=== PATIENT | male | born 1960 | race Caucasian/White ===

== ENCOUNTER 2021-07-30 08:59 | Outpatient (REF) | payer OTHER, SELFPAY ==
--- NOTE | ~2021-07-30 | XR_ITS ---
EXAMINATION: THORACIC AND LUMBAR SPINE CLINICAL INFORMATION: Severe back pain. COMPARISON: None TECHNIQUE: Three-view lumbar spine and three-view thoracic spine. FINDINGS: Thoracic spine: No acute thoracic spine fractures identified. No significant paraspinal line bulge is seen. There is degenerative spurring seen at multiple levels most prominent within the lower thoracic and upper lumbar spine. This is seen anteriorly and laterally with appearance of bridging with ankylosis at multiple levels. Disc spaces are generally maintained. Pedicles appear intact. Three views of the lumbar spine demonstrates lumbarization of S1. No acute fractures identified. There is mild scoliosis convex left. There is some rotation present giving the appearance of mild grade 1 spondylolistheses at the L1-L2 and L2-L3 disc space levels. There is narrowing of the disc spaces with what appears to be some ankylosis. There is facet arthropathy present L3-S2. No fusion of sacroiliac joints is appreciated. XR/XR lumbar spine 2-3V IMPRESSION: Degenerative change without evidence of acute fracture throughout the thoracic and lumbar spine as described.
--- NOTE | ~2021-07-30 | XR_ITS ---
EXAMINATION: THORACIC AND LUMBAR SPINE CLINICAL INFORMATION: Severe back pain. COMPARISON: None TECHNIQUE: Three-view lumbar spine and three-view thoracic spine. FINDINGS: Thoracic spine: No acute thoracic spine fractures identified. No significant paraspinal line bulge is seen. There is degenerative spurring seen at multiple levels most prominent within the lower thoracic and upper lumbar spine. This is seen anteriorly and laterally with appearance of bridging with ankylosis at multiple levels. Disc spaces are generally maintained. Pedicles appear intact. Three views of the lumbar spine demonstrates lumbarization of S1. No acute fractures identified. There is mild scoliosis convex left. There is some rotation present giving the appearance of mild grade 1 spondylolistheses at the L1-L2 and L2-L3 disc space levels. There is narrowing of the disc spaces with what appears to be some ankylosis. There is facet arthropathy present L3-S2. No fusion of sacroiliac joints is appreciated. XR/XR thoracic spine 3V IMPRESSION: Degenerative change without evidence of acute fracture throughout the thoracic and lumbar spine as described.
[2021-07-30 09:22] LABS: MANUAL DIFF FLAG NO
[2021-07-30 10:12] LABS: Basophils Percent Auto 0.4 % (0-2); Eosinophils Absolute Auto 0.1 X10*3/uL (0.0-0.4); Eosinophils Percent Auto 2.3 % (0-4); Hematocrit 44.3 % (42.0-52.0); Hemoglobin 15.2 g/dl (14.0-18.0); Imm Gran Abs Auto 0.02 X10*3/uL (0.00-0.03); Imm Gran Pct Auto 0.4 % (0.0-0.4); Lymphocytes Absolute Auto 1.7 X10*3/uL (1.2-4.9); Mean Corpuscular HGB Conc 34.3 g/dl (31.0-36.0); Mean Corpuscular Hemoglobin 30.5 pg (27.0-33.0); Mean Corpuscular Volume 88.8 fL (80.0-98.0); Mean Platelet Volume 9.5 fL (9.4-12.4); Monocytes Absolute Auto 0.3 X10*3/uL (0.1-1.2); Monocytes Percent Auto 7.1 % (2-11); Neutrophils Absolute Auto 2.6 x10*3/uL (2.0-8.3); Neutrophils Percent Auto 53.8 % (45-73); Platelet Count 233 X10*3/uL (160-400); Red Blood Count 4.99 X10*6/uL (4.60-5.80); Red Cell Distribution Width 12.4 % (11.0-16.0); White Blood Count 4.8 X10*3/uL (4.8-10.8)
[2021-07-30 10:48] LABS: Alanine Aminotransferase 15 U/L (0-40); Albumin Level 4.4 g/dL (3.5-5.0); Alkaline Phosphatase 69 U/L (39-117); Anion Gap 11 (12-20); Aspartate Amino Transferase 13 U/L (5-37); Bilirubin Total 1.2 mg/dL (0.0-1.0); Blood Urea Nitrogen 13 mg/dL (9-16); Calcium 9.2 mg/dL (8.4-10.2); Carbon Dioxide 25 mmol/L (22-29); Chloride 107 mmol/L (96-108); Cholesterol 252 mg/dL; Estimated Glomerular Filt Rate > 60; Glucose Fasting 84 mg/dL (60-99); HDL Cholesterol 32 mg/dL; LDL Cholesterol Calculated 198 mg/dl; Potassium 4.5 mmol/L (3.3-5.1); Sodium 138 mmol/L (135-145); Total Protein 7.3 g/dL (6.5-8.0); Triglycerides 112 mg/dL
[2021-07-30 11:00] LABS: Free T4 (Free Thyroxine) 0.82 ng/dL (0.71-1.85); Thyroid Stimulating Hormone 2.16 uIU/mL (0.32-4.0)
[2021-07-30 11:47] LABS: Cortisol Random 8.5 ug/dL
[2021-08-05 18:42] LABS: Testosterone, Free 56.3 pg/mL (35.0-155.0); Testosterone, Total 262 ng/dL (250-1100)
== END 2021-07-30 09:00 | disposition home or self-care (01) ==
LOC: HO.LAB 08:59
PROVIDERS: PCP Internal Medicine Medical Oncology; Visit Provider Internal Medicine Medical Oncology
DX: M54.9 Dorsalgia, unspecified (principal); Z12.5 Encounter for screening for malignant neoplasm of prostate
CPT/HCPCS: 36415; 72072; 72100; 80053; 80061; 82533; 84153; 84402; 84403; 84439; 84443; 85025

== ENCOUNTER 2023-12-26 09:56 | Outpatient (REF) | payer OTHER, SELFPAY ==
--- NOTE | ~2023-12-26 | XR_ITS ---
EXAMINATION: XR CERVICAL SPINE CLINICAL INFORMATION: Neck pain COMPARISON: None available. TECHNIQUE: 3 views of the cervical spine were obtained. FINDINGS: Multilevel spurring and disc space narrowings, most pronounced C5-6. Multilevel facet hypertrophic changes seen. Mild vertebral body height loss of C5 is likely degenerative. Extreme odontoid tip is obscured but appears intact. No focal paravertebral soft tissue swelling seen. Posterior elements are aligned. Lung apices are clear. Nuchal calcifications. Soft tissues are otherwise unremarkable. XR/XR cervical spine 3V IMPRESSION: Cervical spondylosis, disc space narrowing most pronounced at C5-6. Electronically signed by: Ivy Coulter MD 12/26/2023 11:58 AM EDT
== END 2023-12-26 09:57 | disposition home or self-care (01) ==
LOC: HO.XRAY 09:56
PROVIDERS: PCP Internal Medicine Medical Oncology; Visit Provider Internal Medicine Medical Oncology
DX: M54.2 Cervicalgia (principal)
CPT/HCPCS: 72040

== ENCOUNTER 2024-09-24 15:20 | Outpatient (AMB) | payer OTHER, SELFPAY ==
--- NOTE | 2024-09-24 15:24 | A.OFFVIS_ITS ---
Vital Signs 09/24/24 15:33 Height 6 ft 1 in Weight 233 lb 11.04 oz BMI 30.8 BP 150/74 H Blood Pressure Location Lt brachial Position Sitting Pulse 75 Intake Visit Reasons: [facility] screening , repeat Intake Note: Michael presents in the office as a colonoscopy screening CC: States he had his last colo 7 years ago. 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 He is referred by Dr. Bienvenido Lazo PMX Obesity High cholesterol Umbilical hernia History of gastritis Cervical spondylosis Rotator cuff dysfunction Depression Erectile dysfunction GERD * SURGICAL HISTORY Left myringotomy Skin cancers/moles removed Colonoscopy-2018, Joey= 2 TA is EGD-2017, Joey= partial esophageal stricture with dilation no Barretts * ALLERGIES: NKDA * SubblimeTECH LABS: None since 2021 TODAY'S VISIT He has trouble with HB, it ebbs and flows in severity sometimes he is fine and other times everything he eats or drinks will give him severe burning in the throat. He has been treating it with things like Mylanta. Given the fact that he had an esophageal stricture in the past I think that he really should be on a daily acid reducing medication. He has used omeprazole in the past with good success so we will prescribe this and I encouraged him to use it every day. There is no known family history of gallbladder disease. There is no medications that appear to be contributing to the problem although he is on testosterone injections. He does not have any constipation or diarrhea that co uld be driving the symptoms. In the past he has been negative for H pylori. I think we will get a barium swallow just to see if there is a sliding hiatal hernia contributing to his symptoms. He is also due for repeat colonoscopy because of his history of tubular adenomas. He denies any cardiac or respiratory problems. There are no prior problems with anesthesia or sedation. There are no infectious disease problems. He has been struggling to lose weight recently, has been cutting back a great deal on foods. 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 ROV 8 weeks. [facility] Surgical History H/O esophagogastroduodenoscopy H/O colonoscopy H/O myringotomy Review of Systems Const Denies fatigue, Denies fever(s), Denies night sweats, Denies poor appetite and Denies weight loss Eyes Details: Glasses Reports requires corrective lenses ENT Reports Normal hearing present, Denies dental pain, Denies dysphagia, Denies hearing loss, Denies mouth pain, Denies odynophagia, Denies throat swelling, Denies tongue swelling and Reports other (Dentition adequate) Card Reports no additional complaints Resp Reports no additional complaints GI Details: Denies abdominal pain, Denies melena, Denies bloating, Denies hematochezia, Denies constipation, Denies GI cramping, Denies dysphagia, Denies excessive flatus, Denies early satiety, Reports heartburn, Denies diarrhea, Denies nausea, Denies odynophagia, Denies vomiting and Denies hematemesis Skin/Breast Denies pruritus, Denies lesions, Denies rash and Denies jaundice Neuro Reports Normal hearing present and Denies Abnormal speech present Psych Reports anxiety Endo Denies fatigue Aller/Immun Denies throat swelling and Denies tongue swelling Physical Exam Vital Signs: Last Vital Signs Pulse 75 09/24/24 15:33 BP 150/74 H 09/24/24 15:33 BMI result Body Mass Index 30.8 Const General: cooperative, no acute distress, well developed and well groomed Nutritional Appearance: well nourished and obese centrally obese Orientation/consciousness: oriented to person, oriented to place and oriented to time Limitations: No language barrier HEENT Head: Yes normocephalic and Yes atraumatic Eyes General: appearance normal, both eyes and all related structures Pupils: Equal, round and reactive pupils present Neck Neck: Yes normal visual inspection and Yes no lymphadenopathy Thyroid: Thyroid normal Resp Effort & Inspection: normal respiratory effort and able to speak in complete sentences Auscultation: clear to auscultation bilaterally Cardio Rate: regular rate Rhythm: regular rhythm Heart sounds: Normal, physiologic split S2 sound present Peripheral pulses: radial pulses present and posterior tibial pulses present GI Inspection: No distended, No Abdominal panniculus present and Yes obesity Palpation (GI): Soft to palpation, nontender, no guarding, not rigid and No hepatosplenomegaly present Percussion: Yes normal to percussion Auscultation: normal bowel sounds Rectal Exam - Male: Yes deferred Skin General skin exam: no rashes or lesions noted, turgor normal, skin not dry, no jaundice, No spider nevi and no striae Rashes: no rashes Nails: normal Neuro General: oriented to person, oriented to place and oriented to time Cranial nerves: Yes Equal, round and reactive pupils present and Yes Normal hearing present Speech: No Abnormal speech present Extrem General: Yes normal to inspection, No clubbing, No cyanosis and No edema Psych Appearance: grossly normal and well kempt Mental Status: mental status grossly normal Speech and movement: Normal speech and movement present Affect: normal affect Attitude: cooperative Thought process: Normal thought process present and not confabulating Thought content: Normal thought content present Insight: Good insight present (Psych) Judgement: Good judgement present (Psych) Assessment & Plan Assessment & Plan (1) Pre-op examination: Code(s): Z01.818 - Encounter for other preprocedural examination Category: Medical (2) Tubular adenoma of colon: Comment: 2018-Joey= 2 TA is Code(s): D12.6 - Benign neoplasm of colon, unspecified Category: Medical (3) GERD (gastroesophageal reflux disease): Code(s): K21.9 - Gastro-esophageal reflux disease without esophagitis Category: Medical Plan He has trouble with HB, it ebbs and flows in severity sometimes he is fine and other times everything he eats or drinks will give him severe burning in the throat. He has been treating it with things like Mylanta. Given the fact that he had an esophageal stricture in the past I think that he really should be on a daily acid reducing medication. He has used omeprazole in the past with good success so we will prescribe this and I encouraged him to use it every day. There is no known family history of gallbladder disease. There is no medications that appear to be contributing to the problem although he is on testosterone injections. He does not have any constipation or diarrhea that could be driving the symptoms. In the past he has been negative for H pylori. I think we will get a barium swallow just to see if there is a sliding hiatal hernia contributing to his symptoms. He is also due for repeat colonoscopy because of his history of tubular adenomas. He denies any cardiac or respiratory problems. There are no prior problems with anesthesia or sedation. There are no infectious disease problems. He has been struggling to lose weight recently, has been cutting back a great deal on foods. 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 ROV 8 weeks. Orders: Orders Colonoscopy - GI Use Only Today D12.6 - Benign neoplasm of colon, unspecified Comprehensive Met. Panel Today D12.6 - Benign neoplasm of colon, unspecified Complete Blood Count Auto Diff Today D12.6 - Benign neoplasm of colon, unspecified [place] barium swallow Today K21.9 - Gastro-esophageal reflux disease without esophagitis Medications: New peg 3350-electrolytes 236-22.74-6.74 -5.86 gram (Golytely) until fecal effluent is clear; do not exceed a total volume of 2,000 mL 240 mL PO Q10M 4,000 mL 0RF 1 day Z12.11 - Encounter for screening for malignant neoplasm of colon bisacodyl (Dulcolax (bisacodyl)) 10 mg (2 x 5 mg) PO BEDTIME 4 tabs 0RF 2 days omeprazole 20 mg PO DAILY 30 caps 6RF 30 days K21.9 - Gastro-esophageal reflux disease without esophagitis Coding Level of Care Code New Pt Level 3 (27084) Diagnoses Pre-op examination Z01.818 Tubular adenoma of colon D12.6 GERD (gastroesophageal reflux disease) K21.9
[2024-09-24 15:33] VITALS: BP 150/74; PULSE 75; BMI 30.8
--- OUTSIDE RECORDS SUMMARY | 2024-09-24 16:15 | XMS_ITS | Clinical Summary ---
Author Organization [address] Address [address] [place] [address] Phone Care Team Providers Care Gear Inspector Name Role Phone Christiano Lazo MD Primary Care Provider [phone] Social History Tobacco Use Types Packs/Day Years Used Date Smoking Tobacco: Never Assessed Sex and Gender Information Value Date Recorded Sex Assigned at Not on file Legal Sex Male 9:21 AM EST Gender Identity Not on file Sexual Orientation Not on file Plan of Treatment Health Maintenance Due Date Last Done Comments DTaP,Tdap,and Td Vaccines (1 - Tdap) 1980 Pneumococcal Vaccine: 50+ Ye ars (1 of 1 - PCV) 09/20/2011 Zoster Vaccines (1 of 2) 09/20/2011 COVID-19 Vaccine ( - 2023-2 5 season) 2023 Depression Screening 03/06/2024 Cholesterol Screening (Lipid Panel) 05/08/2024 Colorectal Cancer Screening: Colonoscopy 05/08/2024 HIV Screening 05/08/2024 Hepatitis C Screening 05/08/2024 Social Influencers of Health Screening 05/08/2024 Influenza Vaccine (#1) 2024 RSV Immunization Adult Patie nts (1 - 1-dose 75+ series) 2036 HIB Vaccines Aged Out No longer eligi ble based on patient's age to complete this topic HPV Vaccines Aged Out No longer eligi ble based on patient's age to complete this topic Hepatitis A Vaccines Aged Out No long er eligible based on patient's age to complete this topic Hepatitis B Vaccines Aged Out No long er eligible based on patient's age to complete this topic IPV Vaccines Aged Out No longer eligi ble based on patient's age to complete this topic MMR Vaccines Aged Out No longer eligi ble based on patient's age to complete this topic Meningococcal ACWY Vaccine Aged Out N o longer eligible based on patient's age to complete this topic Meningococcal B Vaccine Aged Out No l onger eligible based on patient's age to complete this topic RSV Immunization Patients Un gladis 20 months Aged Out No longer eligible b ased on patient's age to complete this topic Varicella Vaccines Aged Out No longer eligible based on patient's age to complete this topic Insurance [facility] [place] [id number] [facility] Care Teams Gear Inspector Relationship Specialty Start Date End Date Christiano Lazo MD [address] [facility] [address] [place] [address] PCP - General Oncology 05/07/24
--- OUTSIDE RECORDS SUMMARY | 2024-09-24 16:16 | XMS_ITS | Patient Health Record ---
Author Organization Christiano Lazo III, MD Address [address] [place] [address] Care Team Providers Care Deaf Interpreter Name Role Phone Christiano Lazo Primary Care Provider [phone] Allergies Allergen (clinical drug ingredient) Drug/Non Drug [...] date:06/10/2024 10:37:30 AM Interpretation: Performing Lab: Notes/Report: XR cervical spine 3V Reviewed date:02/28/2024 09:47:07 AM Interpretation: Performing Lab: Notes/Report: [address] [address] XRay Report Signed Patient: Michael Menezes MR#: [id number] : 1960 Acct:[id number] Age/Sex: 63 / M ADM Date: 12/26/23 Loc: HO.XRAY Attending Dr: Christiano Lazo MD Ordering Physician: Christiano Lazo MD Date of Service: 12/26/23 Procedure(s): XR cervical spine 3V Accession Number(s): [id number] cc: Christiano Lazo MD EXAMINATION: XR CERVICAL SPINE CLINICAL INFORMATION: Neck pain COMPARISON: None available. TECHNIQUE: 3 views of the cervical spine were obtained. FINDINGS: Multilevel spurring and disc space narrowings, most pronounced C5-6. Multilevel facet hypertrophic changes seen. Mild vertebral body height loss of C5 is likely degenerative. Extreme odontoid tip is obscured but appears intact. No focal paravertebral soft tissue swelling seen. Posterior elements are aligned. Lung apices are clear. Nuchal calcifications. Soft tissues are otherwise unremarkable. XR/XR cervical spine 3V IMPRESSION: Cervical spondylosis, disc space narrowing most pronounced at C5-6. Electronically signed by: Ivy Coulter MD 12/26/2023 11:58 AM EDT Dictated By: Ivy Coulter MD Signed By: <Electronically signed by Ivy Coulter MD in OV> 12/26/23 1158 DD/ 1001 TD/TT: 12/26/23 1015 Autocad: [address] [address] XRay Report Signed Patient: Scottie Menezes MR#: [id number] : 1960 Acct:[id number] Age/Sex: 63 / M ADM Date: 12/26/23 Loc: HO.XRAY Attending Dr: Christiano Lazo MD Ordering Physician: Christiano Lazo MD Date of Service: 12/26/23 Procedure(s): XR cer vical spine 3V Accession Number(s): [id number] cc: Christiano Lazo MD EXAMINATION: XR CERVICAL SPINE CLINICAL INFORMATION: Neck pain COMPARISON: None available. TECHNIQUE: 3 views of the cervi eb spine were obtained. FINDINGS: Multilevel spurring and disc space narrowings, most pronounced C5-6. Multilevel facet hyp ertrophic changes seen. Mild vertebral body height loss of C5 is likely degenerative. Extreme odontoid tip is obscured but appears intact. No f ocal paravertebral soft tissue swelling seen. Posterior elements a re aligned. Lung apices are clear. Nuchal calcifications. Soft tissues are otherwise unremarkable. X R/XR cervical spine 3V IMPRESSION: Cervical spondylosis , disc space narrowing most pronounced at C5-6. Electronically jordy d by: Ivy Coulter MD 12/26/2023 11:58 AM EDT RP Dictated By: Ivy Torres MD Signed By: <Viviane velasco signed by Ivy Coulter MD in OV> 12/26/23 1158 DD/ 1001 TD/TT: 12/26/23 1015 Autocad: Reason For Referral Reason Consult and Treat Diagnosis 1 Back pain (M54.9) Diagnosis 2 Left shoulder pain ( M25.512) Referral Organization Christiano Lazo III, MD Referring Provider First Name Christiano Referring Provider Last Name Lazo Referring Provider Speciality Internal edicine Referred Provider [facility] Referred Provider Specialty Physical Med icine General Notes D Verena 01/09/2024 10:11:08 AM > Referral faxed with progress note Referral Priority Routine Referral Appointment Date 01/10/2024 Reason Evaluate and Treat Screen for Colon Cancer Diagnosis 1 Screen for colon can cer (Z12.11) Referral Organization Christiano Lazo III, MD Referring Provider First Name Christiano Referring Provider Last Name Lazo Referring Provider Speciality Internal edicine Referred Provider CHERRY NYE Referred Provider Specialty Gastroentero logy General Notes D, Verena 02/19/2024 03:43:04 PM > Faxed referral and progress note Referral Priority Routine Referral Appointment Date 09/24/2024 Reason Evaluate and Treat Diagnosis 1 Low testosterone (R7 9.89) Diagnosis 2 ED (erectile dysfunc tion) (N52.9) Diagnosis 3 Hematuria (R31.9) Referral Organization Christiano Lazo III, MD Referring Provider First Name Christiano Referring Provider Last Name Violet Referring Provider Speciality Internal M edicine Referred Provider Shay Joseph Referred Provider Specialty Urology General Notes D Verena 02/19/2024 03:42:39 PM > faxed referral and progress note Referral Priority Routine Referral Appointment Date 03/15/2024 Reason Evaluate and Treat Diagnosis 1 Back pain (M54.9) Referral Organization Christiano Lazo III, MD Referring Provider First Name Christiano Referring Provider Last Name Violet Referring Provider Speciality Internal M edicine Referred Provider GUALBERTO CHEN Referred Provider Specialty Chiropractor , licensed (effective September 1972) General Notes D, Verena 02/19/2024 03:42:13 PM > Faxed referral and progress note Referral Priority Routine Referral Appointment Date 05/27/2024 Medications Medication SIG (Take, Route, Frequency, Duration) Notes Start Date End Date Status Calcium 500 MG 1 tablet with meals Orally Twice a day Active Magnesium 250 MG 1 tablet with a meal Orally Once a day Active Zinc 30 MG 1 capsule Orally Once a day Active Testosterone Cypionate 200 MG/ML INJECT 0.75ML ONCE EVERY WEEK, DISCARD REMAINDER Intramuscular Active Vitamin K2 40 MCG as directed Orally Active Vitamin D3 25 MCG (1000 UT) 1 capsule Orally Once a day Active BD Syringe/Needle 23G X 1 3 ML USE ONE SYRINGE TO INJECT TESTOSTRONE INTRAMUSCULARLY EVERY WEEK Active BD Integra Syringe 23G X 1 3 ML USE WITH TESTOSTERONE ONCE WEEKLY Active Immunizations Vaccine Route Administration Date Status Comme nts Influenza IM Intramuscular 03/23/2012 Administered Influenza IM Intramuscular 11/28/2013 Administered Influenza IM Intramuscular 12/07/2015 Administered Influenza no Preserv 3 and > IM Intramuscular 12/23/2016 Administered Influenza no Preserv 3 and > IM Intramuscular 01/10/2018 Administered Influenza, quad IM Intramuscular 01/22/2021 Administered Influenza, quad IM Intramuscular 02/01/2022 Administered Influenza Vaccine Afluria IM Intramuscular 11/17/2023 Admi nistered Social History Tobacco Use: Social History Observation Description Date Details (start date - stop date) Never Smoker NA - NA Sex Assigned At : Social History Observation Description Sex Assigned At Male Tobacco Use/Smoking Question Answer Notes Patient is a nonsmoker Additional Findings: Tobacco Non-User Aggressive non-smoker Alcohol Screen Question Answer Notes Did you have a drink containing alcohol in the p ast year? No Points 0 Interpretation Negative Problems Problem Type SNOMED Code ICD Code Onset Dates Problem Status W/U Status Risk Notes Problem 25016178 Hyperlipidemia (E78.5) Active confirmed His fasting lipid profile has been ordered prior to his next visit. We reviewed his diet and nutrition today. We made a plan to lose weight. Problem Major depression, single episode (84458364) Major depressive disorder, single episode, unspecified (F32.9) Active confirmed He is worried about hhis financial situation but his depression is mild. He said he does not require medication at this time. He will be followed regularly. Problem 699981214 GERD without esophagitis (K21.9) Active confirmed His reflux symptoms are well controlled with bmzh-vcx-anzwan r medication and no change was necessary. Problem 965296840 Obesity (BMI 30-39.9) (E66.9) Active confirmed He has gain ed 5 pounds. His body mass index is 31.6. We discussed his diet and nutrition. We made a plan for him to lose weight at a rate of one half of a pound per week. Problem Neuropathy (548039455) Neuropathy (G62.9) Active confirmed Problem Cervical radiculopathy (M54.12) Active confirmed I think it is more likely the pathology is in the cervical spine and in the shoulder joints. An MRI of the neck will be ordered. If necessary he will see orrthopedics. X-rays will bbe obtained as needed. We will continue with heat and rest and ibuprofen. Problem 660202548 Umbilical hernia (K42.9) Active confirmed A small umbilical hernia is present but is causing no symptoms or will be observed without treatment. Problem 258894580 Condyloma acuminata (A63.0) Active confirmed No new lesions were seen today. Problem 109566379 ED (erectile dysfunction) (N52.9) Active confirmed This problem was addressed with medication which she says is no longer working well. He will be referred to urology if it persists. Problem 89403940 Otitis media (H66.90) Active confirmed He was referred back to his otolaryngologis t, Dr. Sosa, for consideration of drainage of the year and appropriate therapy. Problem 17531406 Hypogonadism in male (E29.1) Active confirmed He says he is receiving injections of testosterone given by the urologist. This was continued. Problem 772256764 Microscopic hematuria (R31.29) Active confirmed He has had no episodes of gross hematuria. He occasionally rises at night to urinate but has not had any frequency or dysuria or overflow incontinence. In March 2016 he saw a urologist, Dr. Jaylen Moore, who reviewed his radiographic evaluation and decided he could be followed without cystoscopy. Vital Signs Heart Rate 73 /min 06/14/2024 Temperature 98.6 degrees Fahrenheit 06/14/2024 Blood pressure diastolic 76 mm Hg 06/14/2024 Height 72 in 06/14/2024 Blood pressure systolic 140 mm Hg 06/14/2024 Weight 233 lbs 06/14/2024 BMI 31.6 kg/m2 06/14/2024 Encounters Encounter Location Date Provider Diagnosis Christiano Lazo III, MD [address] [place] [address] [place] [address] 11/17/2023 Christiano Lazo Hyperlipidemia E78.5 ; Encounter for immunization Z23 ; ED (erectile dysfunction) N52.9 ; Obesity (BMI 30-39.9) E66.9 and Vitamin deficiency, unspecified E56.9 Christiano Lazo III, MD [address] [place] [address] [place] [address] 12/26/2023 Christiano Lazo Back pain M54.9 ; Ne ck pain, acute M54.2 ; Umbilical hernia K42.9 ; Hyperlipidemia E78.5 ; GERD without esophagitis K21.9 and Obesity (BMI 30-39.9) E66.9 Christiano Lazo III, MD [address] [place] [address] [place] [address] 01/05/2024 Christiano Lazo Cervical radiculopat hy M54.12 ; Obesity (BMI 30-39.9) E66.9 ; Umbilical hernia K42.9 ; Hyperlipidemia E78.5 and GERD without esophagitis K21.9 Christiano Lazo III, MD [address] [place] [address] [place] [address] 02/16/2024 Christiano Lazo ED (erectile dysfunction) N52.9 ; Obesity (BMI 30-39.9) E66.9 ; Hyperlipidemia E78.5 ; Pyuria R82.81 ; Condyloma acuminata A63.0 ; Reflux esophagitis K21.0 ; Cervical radiculopathy M54.12 and Major depressive disorder, single episode, unspecified F32.9 Christiano Lazo III, MD [address] [place] [address] [address] [place] [address] 06/14/2024 Christiano Lazo Hypogonadism in male E29.1 ; Major depressive disorder, single episode, unspecified F32.9 ; Cervical radiculopathy M54.12 ; Obesity (BMI 30-39.9) E66.9 ; GERD without esophagitis K21.9 ; Hyperlipidemia E78.5 and Umbilical hernia K42.9 Christiano Lazo III, MD [address] [place] [address] [place] [address] 02/19/2024 Christiano Lazo Hematuria, unspecifi ed type R31.9 Christiano Lazo III, MD [address] [place] [address] [place] [address] 02/21/2024 Christiano Lazo Assessments Encounter Date Diagnosis (ICD Code) Assessment Notes Treat ment Notes Treatment Clinical Notes 11/17/2023 Hyperlipidemia (ICD-10 - E78.5) He is compliant with medication. His body mass index is 30. Comprehensive blood work with a fasting lipid profile has been ordered. 11/17/2023 Encounter for immunization (ICD-10 - Z23) He was given influenza vaccine. 12/26/2023 Back pain (ICD-10 - M54.9) His chronic low back pain is mild today and has improved. It does not limit his ability to perform the activities of daily life at present. 12/26/2023 Neck pain, acute (ICD-10 - M54.2) His main complaint today was pain in the back of his neck on both sides when he moves his neck. The causes a tingling and numb discomfort in the upper portions of his right arm. He has pain when he wears rate with either shoulder. Range of motion was normal today. This appears to be in arthritic nerve impingement in the cervical spine. He will use heat rest and ibuprofen. X-rays have been ordered. 01/05/2024 Obesity (BMI 30-39.9 ) (ICD-10 - E66.9) He has gained 2 pounds. His body mass index is 30. We discussed his diet and nutrition. We made a plan for him to lose weight at a rate of one half of a pound per week. 01/05/2024 Cervical radiculopathy (ICD-10 - M54.12) I think it is more likely the pathology is in the cervical spine and in the shoulder joints. An MRI of the neck will be ordered. If necessary he will see orrthopedics. X-rays will bbe obtained as needed. We will continue with heat and rest and ibuprofen. 02/16/2024 Obesity (BMI 30-39.9 ) (ICD-10 - E66.9) He has gained 2 pounds. His body mass index is 30. We discussed his diet and nutrition. We made a plan for him to lose weight at a rate of one half of a pound per week. 02/16/2024 ED (erectile dysfunction) (ICD-10 - N52.9) This problem was addressed with medication which she says is no longer working well. He will be referred to urology if it persists. 06/14/2024 Major depressive disorder, single episode, unspecified (ICD-10 - F32.9) He is worried about hhis financial situation but his depression is mild. He said he does not require medication at this time. He will be followed regularly. 06/14/2024 Hypogonadism in male (ICD-10 - E29.1) He says he is receiving injections of testosterone given by the urologist. This was continued. 02/19/2024 Hematuria, unspecified type (ICD-10 - R31.9) 11/17/2023 ED (erectile dysfunction) (ICD-10 - N52.9) This problem has been treated with medication successfully. 12/26/2023 Umbilical hernia (ICD-10 - K42.9) A small umbilical hernia is present but is causing no symptoms or will be observed without treatment. 01/05/2024 Umbilical hernia (ICD-10 - K42.9) A small umbilical hernia is present but is causing no symptoms or will be observed without treatment. 02/16/2024 Hyperlipidemia (ICD-10 - E78.5) His fasting lipid profile has been ordered prior to his next visit. We reviewed his diet and nutrition today. We made a plan to lose weight. 06/14/2024 Cervical radiculopathy (ICD-10 - M54.12) I think it is more likely the pathology is in the cervical spine and in the shoulder joints. An MRI of the neck will be ordered. If necessary he will see orrthopedics. X-rays will bbe obtained as needed. We will continue with heat and rest and ibuprofen. 11/17/2023 Obesity (BMI 30-39.9 ) (ICD-10 - E66.9) He has gained 2 pounds. His body mass index is 30. We discussed his diet and nutrition. We made a plan for him to lose weight at a rate of one half of a pound per week. 12/26/2023 Hyperlipidemia (ICD-10 - E78.5) He is compliant with medication. His body mass index is 30. Comprehensive blood work with a fasting lipid profile has been ordered. 01/05/2024 Hyperlipidemia (ICD-10 - E78.5) He is compliant with medication. His body mass index is 30. Comprehensive blood work with a fasting lipid profile has been ordered. 02/16/2024 Pyuria (ICD-10 - R82.81) His urine analysis today was remarkable for pyuria and some microscopic hematuria. A culture will be done. 06/14/2024 Obesity (BMI 30-39.9 ) (ICD-10 - E66.9) He has gained 5 pounds. His body mass index is 31.6. We discussed his diet and nutrition. We made a plan for him to lose weight at a rate of one half of a pound per week. 11/17/2023 Vitamin deficiency, unspecified (ICD-10 - E56.9) He was continued on all of his medications. 12/26/2023 GERD without esophagitis (ICD-10 - K21.9) His reflux symptoms are well controlled with meku-otw-qdfwitl medication and no change was necessary. 01/05/2024 GERD without esophagitis (ICD-10 - K21.9) His reflux symptoms are well controlled with vykg-jvb-mifxjmy medication and no change was necessary. 02/16/2024 Condyloma acuminata (ICD-10 - A63.0) No new lesions were seen today. 06/14/2024 GERD without esophagitis (ICD-10 - K21.9) His reflux symptoms are well controlled with mndp-bzx-zvjlzbc medication and no change was necessary. 12/26/2023 Obesity (BMI 30-39.9 ) (ICD-10 - E66.9) He has gained 2 pounds. His body mass index is 30. We discussed his diet and nutrition. We made a plan for him to lose weight at a rate of one half of a pound per week. 02/16/2024 Reflux esophagitis (ICD-10 - K21.0) He will be placed on omeprazole 20 mg a day and a liquid antacid like Maalox or Mylanta orally every 2 hours for 21 days. 06/14/2024 Hyperlipidemia (ICD-10 - E78.5) His fasting lipid profile has been ordered prior to his next visit. We reviewed his diet and nutrition today. We made a plan to lose weight. 02/16/2024 Cervical radiculopathy (ICD-10 - M54.12) I think it is more likely the pathology is in the cervical spine and in the shoulder joints. An MRI of the neck will be ordered. If necessary he will see orrthopedics. X-rays will bbe obtained as needed. We will continue with heat and rest and ibuprofen. 06/14/2024 Umbilical hernia (ICD-10 - K42.9) A small umbilical hernia is present but is causing no symptoms or will be observed without treatment. 02/16/2024 Major depressive disorder, single episode, unspecified (ICD-10 - F32.9) He is worried about hhis financial situation but his depression is mild. He said he does not require medication at this time. He will be followed regularly. Plan Of Treatment Pending Test Test Name Order Date PROFILE, FASTING (COMPREHENSIVE METABOLI C) 09/11/2017 PROFILE, FASTING (COMPREHENSIVE METABOLI C) 10/02/2019 PROFILE, FASTING (COMPREHENSIVE METABOLI C) 02/07/2023 PROFILE, FASTING (COMPREHENSIVE METABOLI C) 08/30/2019 PROFILE, FASTING (COMPREHENSIVE METABOLI C) 06/06/2016 PROFILE, FASTING (COMPREHENSIVE METABOLI C) 06/14/2024 PROFILE, FASTING (COMPREHENSIVE METABOLI C) 10/30/2018 PROFILE, FASTING (COMPREHENSIVE METABOLI C) 07/23/2021 PROFILE, FASTING (COMPREHENSIVE METABOLI C) 05/05/2017 PROFILE, FASTING (COMPREHENSIVE METABOLI C) 02/01/2022 PROFILE, FASTING (COMPREHENSIVE METABOLI C) 07/27/2020 PROFILE, FASTING (COMPREHENSIVE METABOLI C) 11/17/2021 PROFILE, FASTING (COMPREHENSIVE METABOLI C) 05/22/2018 PROFILE, FASTING (COMPREHENSIVE METABOLI C) 11/17/2023 PROFILE, FASTING (COMPREHENSIVE METABOLI C) 01/04/2017 PROFILE, FASTING (COMPREHENSIVE METABOLI C) 04/19/2019 LIPID PANEL 01/04/2017 LIPID PANEL 04/19/2019 LIPID PANEL 09/11/2017 LIPID PANEL 10/02/2019 LIPID PANEL 08/30/2019 LIPID PANEL 06/06/2016 LIPID PANEL 10/30/2018 LIPID PANEL 02/21/2018 LIPID PANEL 05/05/2017 LIPID PANEL 02/01/2022 LIPID PANEL 07/27/2020 LIPID PANEL 11/17/2021 LIPID PANEL 05/22/2018 FREE T4 (FT4) 07/23/2021 FREE T4 (FT4) 08/30/2019 TSH (THYROID STIMULATING HORMONE) 2021 TSH (THYROID STIMULATING HORMONE) 2019 PSA, TOTAL 07/23/2021 PSA, TOTAL 11/17/2023 PSA, TOTAL 07/27/2020 PSA, TOTAL 02/01/2022 PSA, TOTAL SCREEN 11/17/2021 CBC w DIFF 08/30/2019 CBC w DIFF 02/01/2022 CBC w DIFF 05/22/2018 CBC w DIFF 07/23/2021 CBC w DIFF 07/27/2020 CBC w DIFF 01/04/2017 CBC w DIFF 11/17/2021 CBC w DIFF 09/11/2017 CBC w DIFF 06/14/2024 CBC w DIFF 10/02/2019 CBC w DIFF 06/06/2016 CBC w DIFF 10/30/2018 CBC w DIFF 05/05/2017 SED RATE (ESR) 08/30/2019 URINALYSIS (UA) 02/16/2024 FOLLICLE STIMULATING HORMONE (FSH) 09/12 LUTEINIZING HORMONE (LH) 09/13/2019 TESTOSTERONE, TOTAL 08/30/2019 TESTOSTERONE, TOTAL 09/13/2019 MRI CERVICAL SPINE NO CONTRAST CBC WITH AUTO DIFF 11/17/2023 CBC WITH AUTO DIFF 02/07/2023 Lipid Panel 11/17/2023 Lipid Panel 08/13/2021 Lipid Panel 02/07/2023 Lipid Panel 06/14/2024 Vitamin D 25-OH Total 11/17/2023 Vitamin D 25-OH Total 06/14/2024 Testosterone, Total 06/14/2024 Cortisol 07/23/2021 Urine Culture 02/16/2024 Next Appt Details Provider Name:Christiano Lazo, 10/25/2024 01:45:00 PM, [address] [place] [address] [place], [place], [address], Provider Name:Christiano Lazo, 02/21/2025 01:45:00 PM, [address] [place] [address] [place], [place], [address], Insurance Providers Payer Name Payer Address Payer Phone Subscriber Number Group Number Insured Name Patient Relationship to Insured Coverage Start Date Coverage End Date [employer] [address] [place] [phone] [id number] Michael Menezes Self - patient is the insured Medical (General) History Medical History History ICD Code folliculitis of the scalp/Dr. 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
== END 2024-09-24 16:03 | disposition home or self-care (01) ==
LOC: HO.HGI 15:21
PROVIDERS: PCP Internal Medicine Medical Oncology; Visit Provider Nurse Practitioner
DX: Z01.818 Encounter for other preprocedural examination (principal); Z12.11 Encounter for screening for malignant neoplasm of colon; Z86.0101 Personal history of adenomatous and serrated colon polyps; K21.9 Gastro-esophageal reflux disease without esophagitis
CPT/HCPCS: 99203

== ENCOUNTER 2024-09-24 15:20 | Outpatient (REF) | payer OTHER, SELFPAY ==
[2024-09-24 16:27] LABS: MANUAL DIFF FLAG NO
[2024-09-24 17:10] LABS: Hematocrit 46.2 % (42.0-52.0); Hemoglobin 16.4 g/dl (14.0-18.0); Imm Gran Abs Auto 0.06 X10*3/uL (0.00-0.03); Imm Gran Pct Auto 0.7 % (0.0-0.4); Lymphocytes Absolute Auto 2.1 X10*3/uL (1.2-4.9); Mean Corpuscular HGB Conc 35.5 g/dl (31.0-36.0); Mean Corpuscular Hemoglobin 31.1 pg (27.0-33.0); Mean Corpuscular Volume 87.5 fL (80.0-98.0); NRBC Abs Auto 0.000 X10*3/uL (0.0-0.012); NRBC Pct Auto 0.0 /100WBC (0.0-0.2); Platelet Count 230 X10*3/uL (160-400); Red Blood Count 5.28 X10*6/uL (4.60-5.80); White Blood Count 8.7 X10*3/uL (4.8-10.8)
[2024-09-24 17:36] LABS: Alanine Aminotransferase 27 U/L (0-40); Albumin Level 4.6 g/dL (3.5-5.0); Alkaline Phosphatase 60 U/L (39-117); Anion Gap 14 (12-20); Aspartate Amino Transferase 29 U/L (5-37); Blood Urea Nitrogen 15 mg/dL (9-16); Calcium 9.0 mg/dL (8.4-10.2); Carbon Dioxide 23 mmol/L (22-29); Chloride 106 mmol/L (96-108); Estimated Glomerular Filt Rate > 60; Potassium 4.1 mmol/L (3.3-5.1); Sodium 139 mmol/L (135-145); Total Protein 7.9 g/dL (6.5-8.0)
== END 2024-09-24 15:21 | disposition home or self-care (01) ==
LOC: HO.LAB 15:20
PROVIDERS: PCP Internal Medicine Medical Oncology; Visit Provider Nurse Practitioner
DX: Z01.818 Encounter for other preprocedural examination (principal); K21.9 Gastro-esophageal reflux disease without esophagitis; D12.6 Benign neoplasm of colon, unspecified; R12 Heartburn; Z12.11 Encounter for screening for malignant neoplasm of colon
CPT/HCPCS: 36415; 80053; 85025

== ENCOUNTER 2024-11-26 16:17 | Outpatient (AMB) | payer OTHER, SELFPAY ==
--- OUTSIDE RECORDS SUMMARY | 2024-06-14 09:30 | XMS_ITS ---
Author Organization Christiano Lazo III, MD Address [address] [place] [address] Care Team Providers Care Sports Doctor Name Role Phone Dr. Christiano Lazo III Primary Care Provider [phone] Allergies Allergen (clinical drug ingredient) Drug/Non Drug [...] Problem Status W/U Status Risk Notes Problem [id number] Hypogonadism in male (E29.1) Active confirmed He [...] Date Provider Diagnosis Christiano Lazo III, MD [address] [place] [address] [place] [address] 06/14/2024 Christiano Lazo Hypogonadism in male E29.1 [...] His reflux symptoms are well controlled with hcop-srw-aikttbp medication and no change was necessary. 06/14/2024 [...] Months, Reason: OV Provider Name:Christiano Lazo , 12/20/2024 02:00:00 PM, [address] [place] [address] [address], [place], [address], Provider Name:Christiano Lazo , 02/21/2025 01:45:00 PM, [address] [place] [address] [address], [place], [address], Progress Notes * Michael SHELLDOB:1960 (63 yo M)Acc No.[id number]:06/14/2024 Progress Notes Patient: Michael VELARDE Provider: Chris Lazo MD :1960 A ge:63 Y S ex:Male Date:06/14/2024 Address:[address] [place] [address] [id number] Subjective: * Chief Complaints: * O n [...] A ggressive non-smoker 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 He was born in [facility] near [place]. {'Work Hours':'47.5 hours per week', 'Exercise':'Patient has [...] :His reflux symptoms are well controlled with zteq-xrf-zhxdcho medication and no change was necessary. 6 [...] 0 06/14/2024 Generated for Jessica gee/Sanjuanita/Zairaitting on: 11/26/2024 06:40 PM EDT History and Physical Notes * [...]
--- OUTSIDE RECORDS SUMMARY | 2024-10-11 10:56 | XMS_ITS ---
Demographics Address [address] [place] [address] Mobile Email Address Preferred Language en Marital Status Rastafari Affiliation Unknown Race White Ethnic Group Not or Lati no Author Organization Christiano Lazo III, MD Address [address] [place] [address] [address] [facility] [place] [address] Care Team Providers Care Pneudraulic Systems Mechanic Name Role Phone Dr. Christiano Lazo III Primary Care Provider REASON FOR VISIT speak to patient regarding blood in urine Social History Sex Assigned At : Social History Observation Description Sex Assigned At Male Encounters Encounter Location Date Provider Diagnosis Christiano Lazo III, MD [address] [place] [address] [address] [facility] [place] [address] 10/11/2024 Christiano Lazo Plan Of Treatment Next Appt Details Provider Name:Christiano Lazo , 12/20/2024 02:00:00 PM, [address] [place] [address] [place], [address], Provider Name:Christiano Lazo , 02/21/2025 01:45:00 PM, [address] [place] [address] [place] [place] [facility] [place], [address], Progress Notes * Michael SHELLDOB:1960 (64 yo M)Acc No.[id number]:10/11/2024 Patient: Augustine RUBINMichael :1960 A ge:64 Y S ex:Male Address:[address] [place] [address] [address] , [facility] [place] [place] [address] * true * Date: Generated for Printi ng/Faxing/eTransmitting on: 0 11/26/2024 06:40 PM EDT
--- OUTSIDE RECORDS SUMMARY | 2024-10-14 06:11 | XMS_ITS ---
Demographics Address [address] [place] [address] Mobile Email Address Preferred Language en Marital Status Advent Affiliation Unknown Race White Ethnic Group Not or Lati no Author Organization Christiano Lazo III, MD Address [address] [facility] [place] [address] Care Team Providers Care Nurse Ortho Name Role Phone Dr. Christiano Lazo III Primary Care Provider REASON FOR VISIT told patient to call Social History Sex Assigned At : Social History Observation Description Sex Assigned At Male Encounters Encounter Location Date Provider Diagnosis Christiano Lazo III, MD [address] [place] [address] [address] [facility] [place] [address] 10/14/2024 Christiano Lazo Plan Of Treatment Next Appt Details Provider Name:Christiano Lazo , 12/20/2024 02:00:00 PM, [address] [place] [address] [place], [address], Provider Name:Christiano Lazo , 02/21/2025 01:45:00 PM, [address] [place] [address] [address] [place] [facility], [address], Progress Notes * Michael SHELLDOB:1960 (64 yo M)Acc No.[id number]:10/14/2024 Patient: Augustine RUBINMichael :1960 A ge:64 Y S ex:Male Address:[address] [place] [address] [address] , [place] [address] * true * Date: Generated for Printi ng/Faxing/eTransmitting on: 0 11/26/2024 06:39 PM EDT
--- OUTSIDE RECORDS SUMMARY | 2024-10-25 09:45 | XMS_ITS ---
Author Organization Christiano Lazo III, MD Address [address] [place] [address] Care Team Providers Care Main Line Assembler Name Role Phone Dr. Christiano Lazo III [...] Referring Provider Speciality Internal edicine Referred Provider [facility] Referred Provider Specialty Vascular Kaylie ivet [...] 02:22:39 PM > Patient was contacted by [facility] Pulmonary was left a message to call and schedule an appointment. Patient was contacted by Dr. Lazo office and was provided with the [facility] Pulmonary phone number to contact them to [...] Omeprazole 20 MG TAKE 1 CAPSULE BY [facility] DAILY Oral Active Vitamin K2 [...] Date Provider Diagnosis Christiano Lazo III, MD [address] [place] [address] [address] [place], [place] [address] 10/25/2024 Christiano Lazo Obesity (BMI 30-39.9 ) [...] 10/25/2024 10/25/2024, Evaluate and Treat, [facility] 10/25/2024 10/25/2024, Consult and Treat Snoring Patient needs sleep study Daytime Somnolence, Pulmonology [facility] Next Appt Details Follow Up: 2 Months, Reason: OV Provider Name:Christiano Lazo , 12/20/2024 02:00:00 PM, [address] [place] [address] [address], [place], [address], Provider Name:Christiano Mendes Violet , 02/21/2025 01:45:00 PM, [address] [place] [address] [address], [place], [address], Progress Notes * Michael SHELLDOB:1960 (64 yo M)Acc No.[id number]:10/25/2024 Progress Notes Patient: Michael VELARDE Provider: Chris Lazo MD :1960 A ge:64 Y S ex:Male Date:10/25/2024 Address:[address] [place] [address] [place], [id number] Subjective: * Chief Complaints: * H yperlipidemiaGERDObesityDepressionCervical [...] He was referred to endovascular surgery at [facility] for treatment. He has a colonoscopy scheduled in February at [facility]. He feels healthy and well otherwise. His appetite is good and he is trying to lose weight.He is under the care of [facility] urology for hypogonadism. 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 He was born in [place]. {'Work Hours':'47.5 hours per week', 'Exercise':'Patient has [...] Date & Time - 09/24/2024 04:26 PM)?ValueReference Range?Bzjybc192922-710 - mmol/L?Bilirubin Total0.50.0-1.0 - mg/dL?Aspartate Amino Cytxsrwxyyr594-77 - U/L?Alanine Mhkhbivjiyxkelgg160-92 - U/L?Total Protein7.96.5-8.0 - g/dL?Albumin Level4.63.5-5.0 - g/dL?Alkaline Ibmrgiuyqhi5167-327 - U/L?Potassium4.13.3-5.1 - mmol/L?Zqmuznbo636 96-108 - mmol/L?Carbon Crgqbwi9881-20 - mmol/L?Anion Erq3385-19 - ?Blood Urea Mqayslnm564-70 - mg/dL?Creatinine0.880.5-1.4 - mg/dL ?Estimated Glomerular Filt Rate> 60-?Glucose Lsbcpx2509-542 - mg/dL?Calcium9.08.4-10.2 - mg/dL * Examination: G [...] TESTOSTRONE INTRAMUSCULARLY EVERY WEEK. Referral To:[facility]ascular Surgery Reason:Evaluate and Treat Referral To:Pulmonology [facility] Pulmonary Diseases Reason:Consult and Treat Snoring [...] true * Provider: Chris Lazo MD Date: 10/25/2024 Generated for Jessica gee/Sanjuanita/Zairaitting on: 11/26/2024 06:40 [...] Referred Provider Not es 10/25/2024 Christiano Lazo [facility] Evaluate and Treat 10/25/2024 Christiano Lazo [facility], Pulmonology Consult and Treat Snoring Patient needs sleep study Daytime Somnolence
--- OUTSIDE RECORDS SUMMARY | 2024-11-20 07:00 | XMS_ITS ---
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 Christiano Lazo III [...] Omeprazole 20 MG TAKE 1 CAPSULE BY [facility] DAILY Oral Active BD Syringe/Needle 23G X [...] Provider Diagnosis Christiano Lazo III, MD [address] [place] [address] [address] [place], [place] [phone] 11/20/2024 Christiano Lazo Obesity (BMI 30-39.9 ) [...] organisms (ICD-10 - J20.8) He will use jzgg-tcr-vewjqzw medication for his symptoms. He was given 5 days of azithromycin and a follow-up appointment. 11/20/2024 Hyperlipidemia (ICD-10 - E78.5) His fasting lipid profile has been ordered prior to his next visit. We reviewed his diet and nutrition today. We made a plan to lose weight. 11/20/2024 GERD without esophagitis (ICD-10 - K21.9) His reflux symptoms are well controlled with eicv-myw-lcrxpox medication and no change was necessary. Plan [...] Omeprazole 20 MG TAKE 1 CAPSULE BY [facility] DAILY Oral BD Syringe/Needle 23G X 1 [...] Next Appt Details Follow Up: As Scheduled, [place] son: OV Provider Name:Christiano Lazo , 12/20/2024 02:00:00 PM, [address] [place] [address] [address], [place], [phone], Provider Name:Christiano Lazo , 02/21/2025 01:45:00 PM, [address] [place] [address] [address], [place], [phone], Progress Notes * SULEMAN MichaelDOB:1960 (64 yo M)Acc No.[id number]:11/20/2024 Patient: Michael VELARDE Provider: Chris Lazo MD :1960 A ge:64 Y S ex:Male Date:11/20/2024 Address:[address] [place] [address] [id number] Subjective: * Chief Complaints: * A cute [...] of provider rendering services: { ...} [address] 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 He was born in [place]. {'Work Hours':'47.5 hours per week', 'Exercise':'Patient has [...] Date & Time - 09/24/2024 04:26 PM)?ValueReference Range?Qxbzlj616180-941 - mmol/L?Bilirubin Total0.50.0-1.0 - mg/dL?Aspartate Amino Icruszwdqpr092-54 - U/L?Alanine Ayqdpohuzburwwvw730-79 - U/L?Total Protein7.96.5-8.0 - g/dL?Albumin Level4.63.5-5.0 - g/dL?Alkaline Nxsoctcbdjm2273-403 - U/L?Potassium4.13.3-5.1 - mmol/L?Nqpajzko609 96-108 - mmol/L?Carbon Algswnp7376-33 - mmol/L?Anion Url7788-11 - ?Blood Urea Ohprlore582-07 - mg/dL?Creatinine0.880.5-1.4 - mg/dL ?Estimated Glomerular Filt Rate> 60-?Glucose Orgzmr3555-573 - mg/dL?Calcium9.08.4-10.2 - mg/dL Assessment: * Assessment: 1. A cute bronchitis due to other specified organisms - J20.8 (Primary) N otes :He will use ndhk-ngh-msyevde medication for his symptoms. He was given [...] :His reflux symptoms are well controlled with dwix-gjq-liajcru medication and no change was necessary. Plan: [...] off status: Completed true * Provider: Chris aLzo MD Date: 0 11/20/2024 Generated for Jessica gee/Sanjuanita/Zakia on: 11/26/2024 06:40 PM EDT History and Physical Notes * HPI (History of Present Illness) Category Sub-Category Detail Notes Telehealth Location of [facility] rendering services:: {...} [address] [place] [address] Drive [address] [place] [address] Location of patient:: address listed in demographics [...]
--- NOTE | 2024-11-26 16:19 | A.OFFVIS_ITS ---
Vital Signs 11/26/24 16:27 Height 6 ft 1 in Weight 222 lb BMI 29.3 BP 124/59 L Blood Pressure Location Lt brachial Position Sitting Pulse 72 Intake Visit Reasons: Gastroesophageal reflux disease (GERD) Intake Note: Patient follow up for GERD Patient denies any GI issues. Junior Underwriter Required: No Accompanied by: Self / Same As Patient Allergies No Known Allergies Allergy (Verified 09/24/24 15:34) HPI HPI Gastroesophageal reflux disease (GERD): Details: Assessment & Plan (1) Pre-op examination: Code(s): Z01.818 - Encounter for other preprocedural examination Category: Medical (2) Tubular adenoma of colon: Comment: 2018-Joey= 2 TA is Code(s): D12.6 - Benign neoplasm of colon, unspecified Category: Medical (3) GERD (gastroesophageal reflux disease): Code(s): K21.9 - Gastro-esophageal reflux disease without esophagitis Category: Medical Plan He has trouble with HB, it ebbs and flows in severity sometimes he is fine and other times everything he eats or drinks will give him severe burning in the throat. He has been treating it with things like Mylanta. Given the fact that he had an esophageal stricture in the past I think that he really should be on a daily acid reducing medication. He has used omeprazole in the past with good success so we will prescribe this and I encouraged him to use it every day. There is no known family history of gallbladder disease. There is no medications that appear to be contributing to the problem although he is on testosterone injections. He does not have any constipation or diarrhea that could be driving the symptoms. In the past he has been negative for H pylori. I think we will get a barium swallow just to see if there is a sliding hiatal hernia contributing to his symptoms. He is also due for repeat colonoscopy because of his history of tubular adenomas. He denies any cardiac or respiratory problems. There are no prior problems with anesthesia or sedation. There are no infectious disease problems. He has been struggling to lose weight recently, has been cutting back a great deal on foods. 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 ROV 8 weeks. Orders: Orders Colonoscopy - GI Use Only Today D12.6 - Benign neoplasm of colon, unspecified Comprehensive Met. Panel Today D12.6 - Benign neoplasm of colon, unspecified Complete Blood Count Auto Diff Today D12.6 - Benign neoplasm of colon, unspecified [place] barium swallow Today K21.9 - Gastro-esophageal reflux disease without esophagitis Medications: New peg 3350-electrolytes 236-22.74-6.74 -5.86 gram (Golytely) until fecal effluent is clear; do not exceed a total volume of 2,000 mL 240 mL PO Q10M 4,000 mL 0RF 1 day Z12.11 - Encounter for screening for malignant neoplasm of colon bisacodyl (Dulcolax (bisacodyl)) 10 mg (2 x 5 mg) PO BEDTIME 4 tabs 0RF 2 days omeprazole 20 mg PO DAILY 30 caps 6RF 30 days K21.9 - Gastro-esophageal reflux disease without esophagitis LABS Laboratory Tests 09/24/24 16:26 WBC 8.7 Hgb 16.4 Hct 46.2 Plt Count 230 Estimated GFR > 60 Total Bilirubin 0.5 AST 29 ALT 27 Alkaline Phosphatase 60 BARIUM SWALLOW 01/16/2025 COLONOSCOPY BIOPSY TODAYS VISIT [facility] Surgical History H/O esophagogastroduodenoscopy H/O colonoscopy H/O myringotomy Social History Household Members: Family Alcohol intake: current Alcohol intake frequency: holidays/special occasions only Patient Tobacco Use Status: Never used Tobacco Review of Systems Const Denies fatigue, Denies fever(s), Denies night sweats, Denies poor appetite and Reports weight loss (16 lb on a low carb diet) Eyes Details: glasses Reports requires corrective lenses ENT Reports Normal hearing present, Denies dental pain, Denies dysphagia, Denies hearing loss, Denies mouth pain, Denies odynophagia, Denies throat swelling, Denies tongue swelling and Reports other (Dentition adequate) Card Reports no additional complaints Resp Reports no additional complaints GI Details: Denies abdominal pain, Denies melena, Denies bloating, Denies hematochezia, Denies constipation, Denies GI cramping, Denies dysphagia, Denies excessive flatus, Denies early satiety, Reports heartburn, Denies diarrhea, Denies nausea, Denies odynophagia, Denies vomiting and Denies hematemesis Skin/Breast Denies pruritus, Denies lesions, Denies rash and Denies jaundice Neuro Reports Normal hearing present and Denies Abnormal speech present Endo Denies fatigue Aller/Immun Denies throat swelling and Denies tongue swelling Physical Exam Const General: cooperative, no acute distress, well developed and well groomed Nutritional Appearance: well nourished and obese Orientation/consciousness: oriented to person, oriented to place and oriented to time Limitations: No language barrier HEENT Head: Yes normocephalic and Yes atraumatic Eyes General: appearance normal, both eyes and all related structures Pupils: Equal, round and reactive pupils present Neck Neck: Yes normal visual inspection and Yes no lymphadenopathy Thyroid: Thyroid normal Resp Effort & Inspection: normal respiratory effort and able to speak in complete sentences Auscultation: clear to auscultation bilaterally Cardio Rate: regular rate Rhythm: regular rhythm Heart sounds: Normal, physiologic split S2 sound present Peripheral pulses: radial pulses present and posterior tibial pulses present GI Inspection: No distended, No Abdominal panniculus present and Yes obesity Palpation (GI): Soft to palpation, nontender, no guarding, not rigid and No hepatosplenomegaly present Percussion: Yes normal to percussion Auscultation: normal bowel sounds Rectal Exam - Male: Yes deferred Skin General skin exam: no rashes or lesions noted, turgor normal, skin not dry, no jaundice, No spider nevi and no striae Rashes: no rashes Nails: normal Neuro General: oriented to person, oriented to place and oriented to time Cranial nerves: Yes Equal, round and reactive pupils present and Yes Normal hearing present Speech: No Abnormal speech present Extrem General: Yes normal to inspection, No clubbing, No cyanosis and No edema Psych Appearance: grossly normal and well kempt Mental Status: mental status grossly normal Speech and movement: Normal speech and movement present Affect: normal affect Attitude: cooperative Thought process: Normal thought process present and not confabulating Thought content: Normal thought content present Insight: Good insight present (Psych) Judgement: Good judgement present (Psych) Assessment & Plan Assessment & Plan (1) GERD (gastroesophageal reflux disease): Code(s): K21.9 - Gastro-esophageal reflux disease without esophagitis Category: Medical (2) S/P dilatation of esophageal stricture: Comment: 2017 Joey Code(s): Z98.890 - Other specified postprocedural states; Z87.19 - Personal history of other diseases of the digestive system Category: Surgical (3) Tubular adenoma of colon: Comment: 2018-Joey= 2 TA is Code(s): D12.6 - Benign neoplasm of colon, unspecified Category: Medical Plan He is on omeprazole 20 mg daily - The patient is a 64-year-old male presenting with GERD. - Symptoms have improved with lifestyle changes, notably a low-carb diet and resulting weight loss. - Previously managed symptoms with a three-week course of omeprazole; patient discontinued use following symptom resolution. Of course this is somewhat concerning to me given he has a history of esophageal stricture, but the weight loss he is achieving may actually be cunha in controlling his heartburn going forward - Diagnostic barium swallow scheduled to evaluate for a hiatal hernia as a potential underlying cause of GERD symptoms. Return office visit after his 01/16 barium swallow. We also have a colonoscopy ordered for history of tubular adenomas that has not yet been scheduled. Orders: Referrals GI Procedure Notification D12.6 - Benign neoplasm of colon, unspecified Coding Level of Care Code Est Pt Level 3 (90051) Diagnoses GERD (gastroesophageal reflux disease) K21.9 S/P dilatation of esophageal stricture Z98.890; Z87.19 Tubular adenoma of colon D12.6
[2024-11-26 16:27] VITALS: BP 124/59; PULSE 72; BMI 29.3
--- OUTSIDE RECORDS SUMMARY | 2024-11-26 18:40 | XMS_ITS | Patient Health Record ---
Author Organization Christiano Lazo III, MD Address [address] [place] [address] Care Team Providers Care Blood Bank Calendar Control Clerk Name Role Phone Dr. Christiano Lazo III [...] date:02/28/2024 09:47:07 AM Interpretation: Performing Lab: Notes/Report: [address] [address] XRay Report Signed Patient: Michael Menezes MR#: [id number] : 1960 Acct:[id number] Age/Sex: 63 / M ADM Date: 12/26/23 Loc: HO.XRAY Attending Dr: Christiano Lazo MD Ordering Physician: Christiano Lazo MD Date of Service: 12/26/23 Procedure(s): XR cervical spine 3V Accession Number(s): [id number] cc: Christiano Lazo MD EXAMINATION: XR CERVICAL [...] 12/26/23 1158 DD/ 1001 TD/TT: 12/26/23 1015 Tennis Ball Cover Cementer: [address] [address] XRay Report Signed Patient: Scottie Menezes MR#: [id number] : 1960 Acct:[id number] Age/Sex: 63 / M ADM Date: 12/26/23 Loc: HO.XRAY Attending Dr: Christiano Lazo MD Ordering Physician: Christiano Lazo MD Date of Service: 12/26/23 Procedure(s): XR cervical spine 3V Accession Number(s): [id number] cc: Christiano Lazo MD EXAMINATION: XR CERVICAL [...] unremarkable. XR/XR cervical spine 3V IMPRESSION: Cervical spondylosis , disc space narrowing most pronounced at C5-6. Electronically jordy d by: Ivy Coulter MD 12/26/2023 11:58 AM EDT RP Dictated By: Ivy Coulter MD Signed By: <Electronically signed by Ivy Coulter MD in OV> 12/26/23 1158 DD/ 1001 TD/TT: 12/26/23 1015 Tennis Ball Cover Cementer: Complete Blood Count Auto Di ff Reviewed date:10/05/2024 07:16:05 PM Interpretation: Performing Lab:[facility], [address] [place] [id number] Notes/Report: White Blood Count 8.7 4.8-10.8 X10*3/uL Red Blood Count 5.28 4.60-5.80 X10*6/uL Hemoglobin 16.4 14.0-18.0 g/dl Hematocrit 46.2 42.0-52.0 % Mean Corpuscular Volume 87.5 80.0-98.0 fL Mean Corpuscular Hemoglobin 31.1 27.0-33.0 pg Mean Corpuscular HGB Conc 35.5 31.0-36.0 g/dl Red Cell Distribution Width 13.1 11.0-16.0 % Platelet Count 230 160-400 X10*3/uL Mean Platelet Volume 9.4 9.4-12.4 fL Neutrophils Percent Auto 65.8 45-73 % Imm Gran Pct Auto 0.7 0.0-0.4 % Lymphocytes Percent Auto 24.4 20-40 % Monocytes Percent Auto 7.2 2-11 % Eosinophils Percent Auto 1.6 0-4 % Basophils Percent Auto 0.3 0-2 % NRBC Pct Auto 0.0 0.0-0.2 /100WBC Neutrophils Absolute Auto 5.8 2.0-8.3 x10*3/u L Imm Gran Abs Auto 0.06 0.00-0.03 X10*3/uL Lymphocytes Absolute Auto 2.1 1.2-4.9 X10*3/u L Monocytes Absolute Auto 0.6 0.1-1.2 X10*3/uL Eosinophils Absolute Auto 0.1 0.0-0.4 X10*3/u L Basophils Absolute Auto 0.0 0.0-0.2 X10*3/uL NRBC Abs Auto 0.000 0.0-0.012 X10*3/uL Comprehensive Met. Panel Reviewed date:10/05/2024 07:16:05 PM Interpretation: Performing Lab:[facility], [address] [place] [id number] Notes/Report: Sodium 139 135-145 mmol/L Potassium 4.1 3.3-5.1 mmol/L Slight Hemolysis.Interpre t result with caution. Chloride 106 96-108 mmol/L Carbon Dioxide 23 22-29 mmol/L Anion Gap 14 12-20 Blood Urea Nitrogen 15 9-16 mg/dL Creatinine 0.88 0.5-1.4 mg/dL Estimated Glomerular Filt Rate > 60 Chronic Kidney Disease: Estimated GFR < 60 mL/min/1.73m2 Severe Kidney Disease: Estimated GFR < 15 mL/min/1.73m2 Glucose Random 88 60-115 mg/dL Calcium 9.0 8.4-10.2 mg/dL Bilirubin Total 0.5 0.0-1.0 mg/dL Aspartate Amino Transferase 29 5-37 U/L Slight Hemolysis.Interpre t result with caution. Alanine Aminotransferase 27 0-40 U/L Total Protein 7.9 6.5-8.0 g/dL Albumin Level 4.6 3.5-5.0 g/dL Alkaline Phosphatase 60 39-117 U/L Reason For Referral Reason Consult and Treat Diagnosis 1 Back pain (M54.9) Diagnosis 2 Left shoulder pain ( M25.512) Referral Organization Christiano Lazo III, MD Referring Provider First Name Christiano Referring Provider Last Name Violet Referring Provider Speciality Internal M edicine Referred Provider [facility] Referred Provider Specialty Physical Med icine General Notes D, Verena 01/09/2024 10:11:08 AM > Referral faxed with progress note Referral Priority Routine Referral Appointment Date 01/10/2024 Reason Evaluate and Treat Screen for Colon Cancer Diagnosis 1 Screen for colon can cer (Z12.11) Referral Organization Christiano Lazo III, MD Referring Provider First Name Christiano Referring Provider Last Name Lazo Referring Provider Speciality Internal edicine Referred Provider CHERRY NYE Referred Provider Specialty Gastroentero logmode General Notes D, 02/19/2024 03:43:04 PM > [...] Referral Priority Routine Referral Appointment Date 05/27/2024 Reason Evaluate and Treat Diagnosis 1 Varicose veins (I86. 8) Referral Organization Christiano Lazo III, MD Referring Provider First Name Christiano Referring Provider Last Name Lazo Referring Provider Speciality Internal edicine Referred Provider [facility] Referred Provider Specialty Vascular Kaylie ivet General Notes D, 10/28/2024 10:47:02 AM > referral faxed with progress note, D, 11/20/2024 02:36:26 PM > Patient was called to schedule appointment by office was left a voicemail. Dr. Lazo office spoke with patient and provided number for patient to call and schedule an appointment., Yomi 11/20/2024 03:12:24 PM > Patient is scheduled [...] Provider Speciality Internal M edicine Referred Provider [facility], Pulmonology Referred Provider Specialty Pulmonary Di dar General Notes 10/28/2024 10:45:03 AM > Faxed referral with progress note., Yomi11/21/2024 02:22:39 PM > Patient was contacted by [facility] was left a message to call and schedule an appointment. Patient was contacted by Dr. Lazo office and was provided with the [facility] phone number to contact them to schedule an appointment. Referral Priority Routine Referral Appointment Date 12/30/2024 Medications Medication SIG (Take, Route, Frequency, Duration) Notes Start Date End Date Status BD Syringe/Needle 23G X 1 3 ML [...] Omeprazole 20 MG TAKE 1 CAPSULE BY [facility] DAILY Oral Active Zinc 30 MG 1 capsule Orally Once a day Active Magnesium 250 MG 1 tablet with a meal Orally Once a day Active Calcium 500 MG 1 tablet with meals Orally Twice a day Active Vitamin D3 25 MCG (1000 UT) 1 capsule Orally Once a day Active Immunizations Vaccine Route Administration Date Status [...] Vaccine Afluria IM Intramuscular 11/17/2023 Admi nistered COVID PFIZER Unknown 06/10/2020 Administered COVID PFIZER Unknown 01/15/2021 Administered COVID PFIZER Unknown 05/20/2020 Administered SHINGRIX Unknown 10/09/2024 Administered PCV20 Unknown 10/09/2024 Administered Social History Tobacco Use: Social History Observation [...] Problem Status W/U Status Risk Notes Problem 82596340 Hyperlipidemia (E78.5) Active confirmed His fasting lipid profile has been ordered prior to his next visit. We reviewed his diet and nutrition today. We made a plan to lose weight. Problem Major depression, single episode (81995141) Major depressive disorder, single episode, unspecified (F32.9) Active confirmed He is worried about hhis financial situation but his depression is mild. He said he does not require medication at this time. He will be followed regularly. Problem 449874635 GERD without esophagitis (K21.9) Active confirmed His reflux symptoms are well controlled with rdmr-pqb-drfzd er medication and no change was necessary. Problem 130777322 Obesity (BMI 30-39.9) (E66.9) Active confirmed He has gain ed 5 pounds. His body mass index is 31.37. We discussed his diet and nutrition. We made a plan for him to lose weight at a rate of one half of a pound per week. Problem Neuropathy (108534510) Neuropathy (G62.9) Active confirmed Problem Cervical radiculopathy (16931734) Cervical radiculopathy (M54.12) Active confirmed I think it is more likely the pathology is in the cervical spine and in the shoulder joints. An MRI of the neck will be ordered. If necessary he will see orrthopedics. X-rays will bbe obtained as needed. We will continue with heat and rest and ibuprofen. Problem 243771004 Umbilical hernia (K42.9) Active confirmed A small umbilical hernia is present but is causing no symptoms or will be observed without treatment. Problem 027195870 Condyloma acuminata (A63.0) Active confirmed No new lesions were seen today. Problem 908669436 ED (erectile dysfunction) (N52.9) Active confirmed This problem was addressed with medication which she says is no longer working well. He will be referred to urology if it persists. Problem 00576908 Otitis media (H66.90) Active confirmed He was referred back to his otolaryngologi st, Dr. Sosa, for consideration of drainage of the year and appropriate therapy. Problem 11245321 Hypogonadism in male (E29.1) Active confirmed He says he is receiving injections of testosterone given by the urologist. This was continued. Problem 161893150 Microscopic hematuria (R31.29) Active confirmed He has had no episodes of gross hematuria. He occasionally rises at night to urinate but has not had any frequency or dysuria or overflow incontinence. In March 2016 he saw a urologist, Dr. Jaylen Moore, who reviewed his radiographic evaluation and decided he could be followed without cystoscopy. Problem Daytime somnolence (818478454941) Daytime somnolence (R40.0) Active confirmed Vital Signs Heart Rate 79 /min 10/25/2024 Temperature 99 degrees Fahrenheit 10/25/2024 Blood pressure diastolic 78 mm Hg 10/25/2024 Height 72 in 11/20/2024 Blood pressure systolic 136 mm Hg 10/25/2024 Weight 234 lbs 11/20/2024 BMI 31.73 kg/m2 11/20/2024 Encounters Encounter Location Date Provider Diagnosis Christiano Lazo III, MD [address] [place] [address] [place] [address] 12/26/2023 Christiano Lazo Back pain M54.9 ; Ne ck pain, acute M54.2 ; Umbilical hernia K42.9 ; Hyperlipidemia E78.5 ; GERD without esophagitis K21.9 and Obesity (BMI 30-39.9) E66.9 Christiano Lazo III, MD [address] [place] [address] [place] [address] 01/05/2024 Christiano Lazo Cervical radiculopat hy M54.12 ; Obesity (BMI 30-39.9) E66.9 ; Umbilical hernia K42.9 ; Hyperlipidemia E78.5 and GERD without esophagitis K21.9 Christiano Lazo III, MD [address] [place] [address] [place] [address] 02/16/2024 Christiano Lazo ED (erectile dysfunction) N52.9 ; Obesity (BMI 30-39.9) E66.9 ; Hyperlipidemia E78.5 ; Pyuria R82.81 ; Condyloma acuminata A63.0 ; Reflux esophagitis K21.0 ; Cervical radiculopathy M54.12 and Major depressive disorder, single episode, unspecified F32.9 Christiano Lazo III, MD [address] [place] [address] [place] [address] 06/14/2024 Christiano Lazo Hypogonadism in male E29.1 ; Major depressive disorder, single episode, unspecified F32.9 ; Cervical radiculopathy M54.12 ; Obesity (BMI 30-39.9) E66.9 ; GERD without esophagitis K21.9 ; Hyperlipidemia E78.5 and Umbilical hernia K42.9 Christiano Lazo III, MD [address] [place] [address] [place] [address] 10/25/2024 Christiano Lazo Obesity (BMI 30-39.9 ) E66.9 ; Umbilical hernia K42.9 ; Hyperlipidemia E78.5 ; ED (erectile dysfunction) N52.9 ; Condyloma acuminata A63.0 ; Major depressive disorder, single episode, unspecified F32.9 ; Cervical radiculopathy M54.12 and Hypogonadism in male E29.1 Christiano Lazo III, MD [address] [place] [address] [place] [address] 11/20/2024 Christiano Lazo Obesity (BMI 30-39.9 ) E66.9 ; Acute bronchitis due to other specified organisms J20.8 ; Hyperlipidemia E78.5 and GERD without esophagitis K21.9 Christiano Lazo III, MD [address] [place] [address] [place] [address] 02/19/2024 Christiano Lazo Hematuria, unspecifi ed type R31.9 Christiano Lazo III, MD [address] [place] [address] [address] [place] [address] 02/21/2024 Christiano Lazo III, MD [address] [place] [address] [address] [place] [address] 10/11/2024 Christiano Lazo III, MD [address] [place] [address] [address] [place] [address] 10/14/2024 Christiano Lazo Assessments Encounter Date Diagnosis (ICD Code) Assessment Notes Treat ment Notes Treatment Clinical Notes 12/26/2023 Back pain (ICD-10 - M54.9) His [...] given by the urologist. This was continued. 10/25/2024 Obesity (BMI 30-39.9 ) (ICD-10 - [...] symptoms or will be observed without treatment. 11/20/2024 Acute bronchitis due to other specified organisms (ICD-10 - J20.8) He will use msfl-zkb-shdaznu medication for his symptoms. He was given 5 days of azithromycin and a follow-up appointment. 11/20/2024 Obesity (BMI 30-39.9 ) (ICD-10 - E66.9) He has gained 5 pounds. His body mass index is 31.37. We discussed his diet and nutrition. We made a plan for him to lose weight at a rate of one half of a pound per week. 02/19/2024 Hematuria, unspecified type (ICD-10 - R31.9) 12/26/2023 Umbilical hernia (ICD-10 - K42.9) A [...] with heat and rest and ibuprofen. 10/25/2024 Hyperlipidemia (ICD-10 - E78.5) His fasting lipid profile has been ordered prior to his next visit. We reviewed his diet and nutrition today. We made a plan to lose weight. 11/20/2024 Hyperlipidemia (ICD-10 - E78.5) His fasting lipid profile has been ordered prior to his next visit. We reviewed his diet and nutrition today. We made a plan to lose weight. 12/26/2023 Hyperlipidemia (ICD-10 - E78.5) He is [...] half of a pound per week. 10/25/2024 ED (erectile dysfunction) (ICD-10 - N52.9) This problem was addressed with medication which she says is no longer working well. He will be referred to urology if it persists. 11/20/2024 GERD without esophagitis (ICD-10 - K21.9) His reflux symptoms are well controlled with tkey-hho-kqnydud medication and no change was necessary. 12/26/2023 GERD without esophagitis (ICD-10 - K21.9) His reflux symptoms are well controlled with tnwf-feh-zgwfazr medication and no change was necessary. 01/05/2024 GERD without esophagitis (ICD-10 - K21.9) His reflux symptoms are well controlled with xkhv-eiy-yeetddz medication and no change was necessary. 02/16/2024 Condyloma acuminata (ICD-10 - A63.0) No new lesions were seen today. 06/14/2024 GERD without esophagitis (ICD-10 - K21.9) His reflux symptoms are well controlled with rtza-kfq-phwbrnu medication and no change was necessary. 10/25/2024 Condyloma acuminata (ICD-10 - A63.0) No new lesions were seen today. 12/26/2023 Obesity (BMI 30-39.9 ) (ICD-10 - [...] made a plan to lose weight. 10/25/2024 Major depressive disorder, single episode, unspecified (ICD-10 - F32.9) He is worried about hhis financial situation but his depression is mild. He said he does not require medication at this time. He will be followed regularly. 02/16/2024 Cervical radiculopathy (ICD-10 - M54.12) I [...] or will be observed without treatment. 10/25/2024 Cervical radiculopathy (ICD-10 - M54.12) I [...] time. He will be followed regularly. 10/25/2024 Hypogonadism in male (ICD-10 - E29.1) He says he is receiving injections of testosterone given by the urologist. This was continued. Plan Of Treatment Pending Test Test Name Order Date PROFILE, FASTING (COMPREHENSIVE METABOLI C) 10/02/2019 PROFILE, [...] 01/04/2017 PROFILE, FASTING (COMPREHENSIVE METABOLI C) 04/19/2019 PROFILE, FASTING (COMPREHENSIVE METABOLI C) 09/11/2017 LIPID PANEL 01/04/2017 LIPID PANEL 04/19/2019 LIPID PANEL 09/11/2017 LIPID PANEL 10/02/2019 LIPID PANEL 08/30/2019 LIPID PANEL 06/06/2016 LIPID PANEL 10/30/2018 LIPID PANEL 02/21/2018 LIPID PANEL 05/05/2017 LIPID PANEL 02/01/2022 LIPID PANEL 07/27/2020 LIPID PANEL 11/17/2021 LIPID PANEL 05/22/2018 FREE T4 (FT4) 08/30/2019 FREE T4 (FT4) 07/23/2021 TSH (THYROID STIMULATING HORMONE) 2019 TSH (THYROID STIMULATING HORMONE) 2021 PSA, TOTAL 07/27/2020 PSA, TOTAL 02/01/2022 PSA, TOTAL 07/23/2021 PSA, TOTAL 11/17/2023 PSA, TOTAL SCREEN 11/17/2021 CBC w DIFF 02/01/2022 CBC w DIFF 05/22/2018 CBC w DIFF 07/23/2021 CBC w DIFF 07/27/2020 CBC w DIFF 01/04/2017 CBC w DIFF 11/17/2021 CBC w DIFF 09/11/2017 CBC w DIFF 10/02/2019 CBC w DIFF 06/14/2024 CBC w DIFF 06/06/2016 CBC w DIFF 10/30/2018 CBC w DIFF 05/05/2017 CBC w DIFF 08/30/2019 SED RATE (ESR) 08/30/2019 URINALYSIS (UA) 02/16/2024 [...] Culture 02/16/2024 Next Appt Details Provider Name:Christiano Lazo , 12/20/2024 02:00:00 PM, [address] [place] [address] [place], [place], [address], Provider Name:Christiano Lazo , 02/21/2025 01:45:00 PM, [address] [place] [address] [place], [address], Insurance Providers Payer Name Payer Address Payer Phone Subscriber Number Group Number Insured Name Patient Relationship to Insured Coverage Start Date Coverage End Date [employer] [address] [place] [phone] [id number] Michael Menezes Self - patient is the [...]
== END 2024-11-26 17:19 | disposition home or self-care (01) ==
LOC: HO.HGI 16:18
PROVIDERS: PCP Internal Medicine Medical Oncology; Visit Provider Nurse Practitioner
DX: K21.9 Gastro-esophageal reflux disease without esophagitis (principal); Z98.890 Other specified postprocedural states; Z87.19 Personal history of other diseases of the digestive system; D12.6 Benign neoplasm of colon, unspecified
CPT/HCPCS: 99213

== ENCOUNTER 2024-12-30 15:20 | Outpatient (AMB) | payer OTHER, SELFPAY ==
--- OUTSIDE RECORDS SUMMARY | 2024-02-16 09:30 | XMS_ITS ---
Author Organization Christiano Lazo III, MD Address [address] [place] [address] Care Team Providers Care Practice Business Asst Name Role Phone Dr. Christiano Lazo III Primary Care Provider [phone] Allergies Allergen (clinical drug ingredient) Drug/Non Drug Allergy documented on EMR Reaction Allergy Type Onset Date Status No Known Drug Allergy Unknown Drug Allergy Active Results Component Value Reference Range Notes URINE DIP STICK Reviewed date:02/20/2024 04:27:51 PM Interpretation: Performing Lab: Notes/Report: SG 1.005 1.005 - 1.025 pH 5.0 5.0 - 9.0 PATRICE 70 Negative - NIT neg Negative - PRO TRACE Negative - Trace GLU NEG Negative - KET NEG Negative - UBG NEG 0.1 - 1.8 MICHELE 0.2 0.2 - 1.3 BLD LARGE Negative - Menstrating N/A PROFILE, FASTING (COMPREHENS LOGAN METABOLIC) Reviewed date:06/10/2024 10:37:45 AM Interpretation: Performing Lab: Notes/Report: CBC WITH AUTO DIFF Reviewed date:06/10/2024 10:38:04 AM Interpretation: Performing Lab: Notes/Report: Lipid Panel Reviewed date:06/10/2024 10:38:17 AM Interpretation: Performing Lab: Notes/Report: PSA Free and Total Reviewed date:06/10/2024 10:38:29 AM Interpretation: Performing Lab: Notes/Report: Testosterone, Total Reviewed date:06/10/2024 10:37:30 AM Interpretation: Performing Lab: Notes/Report: Reason For Referral Reason Evaluate and Treat Screen for Colon Cancer Diagnosis 1 Screen for colon can cer (Z12.11) Referral Organization Christiano Lazo III, MD Referring Provider First Name Christiano Referring Provider Last Name Violet Referring Provider Speciality Internal edicine Referred Provider CHERRY NYE Referred Provider Specialty Gastroentergeorge campbell General Notes D, 02/19/2024 03:43:04 PM > Faxed referral and progress note Referral Priority Routine Referral Appointment Date 09/24/2024 Reason Evaluate and Treat Diagnosis 1 Low testosterone (R7 9.89) Diagnosis 2 ED (erectile dysfunc tion) (N52.9) Diagnosis 3 Hematuria (R31.9) Referral Organization Christiano Lazo III, MD Referring Provider First Name Christiano Referring Provider Last Name Violet Referring Provider Speciality Internal edicine Referred Provider Shay Joseph Referred Provider Specialty Urology General Notes D, 02/19/2024 03:42:39 PM > faxed referral and progress note Referral Priority Routine Referral Appointment Date 03/15/2024 Reason Evaluate and Treat Diagnosis 1 Back pain (M54.9) Referral Organization Christiano Lazo III, MD Referring Provider First Name Christiano Referring Provider Last Name Violet Referring Provider Speciality Internal edicine Referred Provider GUALBERTO CHEN Referred Provider Specialty Chiropractor , licensed (effective September 1972) General Notes D, 02/19/2024 03:42:13 PM > Faxed referral and progress note Referral Priority Routine Referral Appointment Date 05/27/2024 REASON FOR VISIT Annual Exam Medications Medication SIG (Take, Route, Frequency, Duration) Notes Start Date End Date Status Calcium 500 MG 1 tablet with meals Orally Twice a day Active Vitamin D3 25 MCG (1000 UT) 1 capsule Orally Once a day Active Zinc 30 MG 1 capsule Orally Onc e a day Active Magnesium 250 MG 1 tablet with a meal Orally Once a day Active Vitamin K2 40 MCG as directed Orally Active Social History Tobacco Use: Social History Observation Description Date Details (start date - stop date) Never Smoker NA - NA Sex Assigned At : Social History Observation Description Sex Assigned At Male Tobacco Use/Smoking Question Answer Notes Patient is a nonsmoker Additional Findings: Tobacco Non-User Aggressive non-smoker Problems Problem Type SNOMED Code ICD Code Onset Dates Problem Status W/U Status Risk Notes Problem Cervical radiculopathy (48274041) Cervical radiculopathy (M54.12) Active confirmed The pain in the shoulder is not reproduced by manipulation of the neck at this time. His neck is pain-free currently. Vital Signs Temperature 98.0 degrees Fahrenheit 02/16/20 24 Blood pressure systolic 135 mm Hg 02/16/20 24 Blood pressure diastolic 88 mm Hg 024 Heart Rate 75 /min 02/16/2024 Height 72 in 02/16/2024 Weight 228 lbs 02/16/2024 BMI 30.92 kg/m2 02/16/2024 Encounters Encounter Location Date Provider Diagnosis Christiano Lazo III, MD [address] [place] [address] [place] [address] 02/16/2024 Christiano Lazo ED (erectile dysfunction) N52.9 ; Obesity (BMI 30-39.9) E66.9 ; Hyperlipidemia E78.5 ; Pyuria R82.81 ; Condyloma acuminata A63.0 ; Reflux esophagitis K21.0 ; Cervical radiculopathy M54.12 and Major depressive disorder, single episode, unspecified F32.9 Assessments Encounter Date Diagnosis (ICD Code) Assessment Notes Treat ment Notes Treatment Clinical Notes 02/16/2024 ED (erectile dysfunction) (ICD-10 - N52.9) This problem was addressed with medication which she says is no longer working well. He will be referred to urology if it persists. 02/16/2024 Obesity (BMI 30-39.9 ) (ICD-10 - E66.9) He has gained 2 pounds. His body mass index is 30. We discussed his diet and nutrition. We made a plan for him to lose weight at a rate of one half of a pound per week. 02/16/2024 Hyperlipidemia (ICD-10 - E78.5) His fasting lipid profile has been ordered prior to his next visit. We reviewed his diet and nutrition today. We made a plan to lose weight. 02/16/2024 Pyuria (ICD-10 - R82.81) His urine analysis today was remarkable for pyuria and some microscopic hematuria. A culture will be done. 02/16/2024 Condyloma acuminata (ICD-10 - A63.0) No new lesions were seen today. 02/16/2024 Reflux esophagitis (ICD-10 - K21.0) He will be placed on omeprazole 20 mg a day and a liquid antacid like Maalox or Mylanta orally every 2 hours for 21 days. 02/16/2024 Cervical radiculopathy (ICD-10 - M54.12) I think it is more likely the pathology is in the cervical spine and in the shoulder joints. An MRI of the neck will be ordered. If necessary he will see orrthopedics. X-rays will bbe obtained as needed. We will continue with heat and rest and ibuprofen. 02/16/2024 Major depressive disorder, single episode, unspecified (ICD-10 - F32.9) He is worried about hhis financial situation but his depression is mild. He said he does not require medication at this time. He will be followed regularly. Plan Of Treatment Medication Medication Name Sig Start Date Stop Date Notes Calcium 500 MG 1 tablet with meals Orally Twice a day Vitamin D3 25 MCG (1000 UT) 1 capsule Orally Once a day Zinc 30 MG 1 capsule Orally Once a day Magnesium 250 MG 1 tablet with a meal Orally Once a day Vitamin K2 40 MCG as directed Orally Pending Test Test Name Order Date URINALYSIS (UA) 02/16/2024 Urine Culture 02/16/2024 Referrals Referral Date Details 02/16/2024 02/16/2024, Evaluate and Treat Screen for Colon Cancer, [facility] 02/16/2024 02/16/2024, Evaluate and Treat, [facility] 02/16/2024 02/16/2024, Evaluate and Treat, GUALBERTO CH[facility] Next Appt Details Follow Up: 4 Months, Reason: OV Provider Name:Christiano Lazo , 01/10/2025 03:15:00 PM, [address] [place] [address] [address], [place], [id number], Provider Name:Christiano Lazo , 02/21/2025 01:45:00 PM, [address] [place] [address] [address], [place], [id number], Progress Notes * Michael SHELLDOB:1960 (63 yo M)Acc No.[id number]:02/16/2024 Progress Notes Patient: Michael VELARDE Provider: Chris Lazo MD :1960 A ge:63 Y S ex:Male Date:02/16/2024 Address:[address] [place], [id number] Subjective: * Chief Complaints: * A nnual Exam * HPI: D epression Screening: PHQ-9 L ittle interest or pleasure in doing things?Not at all F eeling down, depressed, or hopeless N ot at all T rouble falling or staying asleep, or sleeping too much N early every day F eeling tired or having little energy N ot at all P oor appetite or overeating N ot at all F eeling bad about yourself or that you are a failure, or have let yourself or your family down N ot at all T rouble concentrating on things, such as reading the newspaper or watching television N ot at all M oving or speaking so slowly that other people could have noticed; or the opposite, being so fidgety or restless that you have been moving around a lot more than usual N ot at all T houghts that you would be better off or of hurting yourself in some way N ot at all T otal Score 3 I nterpretation M inimal Depression C OVID-19 Screening: Questions H ave you had any new onset fever, chills, cough, congestion, sore throat, shortness of breath, muscle aches? N o S CLEO Questions: SDOH Questions I n the past year have you been worried about losing your housing? N o I n the past year have you or any family members you live with been unable to get any of the following when it was really needed? Check all that apply: N one * : The 63-year-old male patient presented with a history of tingling sensation in the back of his shoulder blade, across the top, down his elbow. The symptoms were not constant and were triggered when he moved his arm in certain ways. He had tried to get an appointment with [facility] but was unable to reach them. He then resorted to doing neck exercises he found on [employer], which seemed to help. He also reported having issues sexually and had lost all his hair, suspecting it could be due to low testosterone levels. He also mentioned having aches and pains, which he attributed to getting old. Blood Sugar Level is 88. He is due for a colonoscopy and we have referred him to gastroenterology today for that purpose. He has no urinary symptoms but did have some pyuria. This will be investigated.An MRI of the cervical spine done early in January showed spondylosis and narrowing at C5-C6 degenerative disc disease. His neck pain has improved. Blood work done January 26, 2024 showed white count 6.5 hematocrit 44 platelets 213 glucose 88 BUN 18 creatinine 0.87 PSA 0.8 vitamin D 25.6. * ROS: G eneral/Constitutional: pain I ntermittent low back pain. C hills d enies.?Fatigue a dmits. F ever d enies. E NT: Decreased hearing d enies. R espiratory: Cough d enies. C ardiovascular: Chest pain with exertion d enies. D yspnea on exertion?denies. S hortness of breath d enies. G astrointestinal: Constipation o ccasional. D ecreased appetite d enies. D iarrhea d enies. H eartburn c ontrolled with medications. N ausea d enies. R ectal bleeding d enies. V omiting d enies. H ematology: bruising d enies. p etechiae d enies. S wollen glands n one have been noted. G enitourinary: Frequent urination o nce a night. M usculoskeletal: Muscle aches d enies. P ainful joints d enies. S ciatica d enies. W eakness d enies. S kin: Itching d enies. R gerhard d enies. S kin lesion(s)?denies. N eurologic: Difficulty speaking d enies. D izziness d enies.?Headache d enies. L ow back pain d enies. P sychiatric: Depressed mood d enies. * Medical History: * Surgical History: s everal moles removed have been excised from left side,non-malignant No history * Hospitalization/Major Diagno stic Procedure: N o history * Family History: F ather: alive 74 yrs, uknown. M other: alive 68 yrs, emphysema, chronic obstructive pulmonary disease, hyperlipidemia. 2 brother(s) - healthy. . He has no children. He is not aware of any inherited cancer family syndrome. He is not aware of any family history of mental illness or substance use disorder or addiction. 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 He was born in [place] near [place]. {'Work Hours':'47.5 hours per week', 'Exercise':'Patient has been working out'}. * Medications: T akingVitamin D3 25 MCG (1000 UT) Capsule 1 capsule Orally Once a day Calcium 500 MG Tablet 1 tablet with meals Orally Twice a day Magnesium 250 MG Tablet 1 tablet with a meal Orally Once a day Zinc 30 MG Capsule 1 capsule Orally Once a day Vitamin K2 40 MCG Tablet as directed Orally Medication List reviewed and reconciled with the patientTaking Vitamin D3 25 MCG (1000 UT) Capsule 1 capsule Orally Once a day Taking Calcium 500 MG Tablet 1 tablet with meals Orally Twice a day Taking Magnesium 250 MG Tablet 1 tablet with a meal Orally Once a day Taking Zinc 30 MG Capsule 1 capsule Orally Once a day Taking Vitamin K2 40 MCG Tablet as directed Orally Medication List reviewed and reconciled with the patient * Allergies: N o Known Drug Allergyno[Allergies Verified] Objective: * Vitals: H t: 72, Wt: 228, BMI:30.92, BP: 135/88, HR: 75, Temp: 98.0, Wt-k.42. * Examination: G eneral Examination: GENERAL APPEARANCE: p leasant, well nourished, well developed, in no acute distress, calm and relaxed, obese, man. HEAD: a traumatic, normocephalic. EYES: e sandra, perrla, anicteric, conjugate. EARS: n ormal. NOSE: s eptum intact. ORAL CAVITY: n ormal, unremarkable. NECK/THYROID: n o jugular venous distention, no carotid bruit, thyroid normal. LYMPH NODES: n o enlarged lymph nodes,spleen normal. SKIN: n o suspicious lesions, anicteric. HEART: n o clicks, gallops, murmurs, or rubs, regular rhythm, S1, S2 normal, no s3, or vascular bruits. LUNGS: c lear to auscultation . BREASTS: no masses palpable bilaterally. ABDOMEN: b owel sounds normal, no ascites, no organomegaly, no mass, centripital obesity, Small reducible umbilical hernia. RECTAL EXAM: N o condylomata, rectal exam deferred to upcoming colonoscopy. MUSCULOSKELETAL: e xtremities unremarkable, no clubbing, cyanosis or edema. PERIPHERAL PULSES: n ormal. NEUROLOGIC: a lert and oriented, cranial nerves 2-12 grossly intact, deep tendon reflexes 2+ symmetrical, motor strength normal upper and lower extremities, sensory exam intact. PSYCH: a lert, oriented, mood/affect full range, good eye contact, cooperative with exam, cognitive function intact, speech clear, thought process logical, goal directed. Assessment: * Assessment: 1. O besity (BMI 30-39.9) - E66.9 (Primary) N otes :He has gained 2 pounds. His body mass index is 30. We discussed his diet and nutrition. We made a plan for him to lose weight at a rate of one half of a pound per week. 2 . E D (erectile dysfunction) - N52.9 N otes :This problem was addressed with medication which she says is no longer working well. He will be referred to urology if it persists. 3 . H yperlipidemia - E78.5 N otes :His fasting lipid profile has been ordered prior to his next visit. We reviewed his diet and nutrition today. We made a plan to lose weight. 4 . P yuria - R82.81 N otes :His urine analysis today was remarkable for pyuria and some microscopic hematuria. A culture will be done. 5 . C ondyloma acuminata - A63.0 N otes :No new lesions were seen today. 6 . R eflux esophagitis - K21.0 N otes :He will be placed on omeprazole 20 mg a day and a liquid antacid like Maalox or Mylanta orally every 2 hours for 21 days. 7 . C ervical radiculopathy - M54.12 N otes :I think it is more likely the pathology is in the cervical spine and in the shoulder joints. An MRI of the neck will be ordered. If necessary he will see orrthopedics. X-rays will bbe obtained as needed. We will continue with heat and rest and ibuprofen. 8 . [place] vargas depressive disorder, single episode, unspecified - F32.9 N otes :He is worried about hhis financial situation but his depression is mild. He said he does not require medication at this time. He will be followed regularly. Plan: * Treatment: 2. H yperlipidemia L AB: PROFILE, FASTING (COMPREHENSIVE METABOLIC) L AB: CBC WITH AUTO DIFF L AB: Lipid Panel 3. O thers Continue Vitamin D3 Capsule, 25 MCG (1000 UT), 1 capsule, Orally, Once a day; C ontinue Calcium Tablet, 500 MG, 1 tablet with meals, Orally, Twice a day; C ontinue Magnesium Tablet, 250 MG, 1 tablet with a meal, Orally, Once a day; C ontinue Zinc Capsule, 30 MG, 1 capsule, Orally, Once a day; C ontinue Vitamin K2 Tablet, 40 MCG, as directed, Orally. ? [facility] To[facility] Reason:Evaluate and Treat Screen for Colon Cancer Referral To:[facility]rology [facility] Reason:Evaluate and Treat Referral To:GUALBERTO CHEN Chiropractor, licensed (effective September 1972) Reason:Evaluate and Treat * Labs: * L ab: URINE DIP STICK (Collection Date & Time - 02/16/2024) Value Reference Range S G 1.005 1.005 - 1.025 * p H 5.0 5.0 - 9.0 * L EU 70 Negative - * N IT neg Negative - * P RO TRACE Negative - Trace * G CASEY NEG Negative - * K ET NEG Negative - * U BG NEG 0.1 - 1.8 * B IL 0.2 0.2 - 1.3 * B LD LARGE Negative - * M enstrating N/A ?Lab: URINALYSIS (UA)?Lab: Urine Culture * Procedure Codes: 8 1002 URINE-NO MICRO * Preventive Medicine: Counseling: C are goal follow-up plan: Counseling for abnormal BMI given Y es Above Normal BMI Follow-up D ietary management education, guidance, and counseling, Dietary needs education * Follow Up: 4 Months (Reason: OV) * Images: * Sign off status: Completed true * Provider: Chris Lazo MD Date: 1 04/18/2023 Generated for Paolai gerard/Sanjuanita/eTransmitting on: 1 06:36 PM EDT History and Physical Notes * HPI (History of Present Illness) Category Sub-Category Detail Notes Depression Screening PHQ-9 Little inte rest or pleasure in doing things: Not at all Feeling down, depressed, or hopeless: No t at all Trouble falling or staying asleep, or sl eeping too much: Nearly every day Feeling tired or having little energy: N ot at all Poor appetite or overeating: Not at all Feeling bad about yourself o r that you are a failure, or have let yourself or your family down: Not at all Trouble concentrating on thi ngs, such as reading the newspaper or watching television: Not at all Moving or speaking so slowly that other people could have noticed; or the opposite, being so fidgety or restless that you have been moving around a lot more than usual: Not at all Thoughts that you would be b sayda off or of hurting yourself in some way: Not at all Total Score: 3 Interpretation: Minimal Depression COVID-19 Screening Questions Have you had any new onset fever, chills, cough, congestion, sore throat, shortness of breath, muscle aches?: No SDOH Questions SDOH Questions In the past year have you been worried about losing your housing?: No In the past year have you or any family members you live with been unable to get any of the following when it was really needed? Check all that apply:: None Examination Category Sub-Category Detail Notes General Examination GENERAL APPEARANCE: pleasant , well nourished, well developed, in no acute distress, calm and relaxed, obese, man HEAD: atraumatic, normocep halic EYES: eomi, perrla, anicte lauri, conjugate EARS: normal NOSE: septum intact NECK/THYROID: no jugular venous di stention, no carotid bruit, thyroid normal HEART: no clicks, gallops, murmurs, or rubs, regular rhythm, S1, S2 normal, no s3, or vascular bruits LUNGS: clear to auscultatio n ABDOMEN: bowel sounds normal, no ascites, no organomegaly, no mass, centripital obesity, Small reducible umbilical hernia NEUROLOGIC: alert and oriented, cranial nerves 2-12 grossly intact, deep tendon reflexes 2+ symmetrical, motor strength normal upper and lower extremities, sensory exam intact SKIN: no suspicious lesion s, anicteric PERIPHERAL PULSES: normal BREASTS: no masses palpable b ilaterally MUSCULOSKELETAL: extremities unremark able, no clubbing, cyanosis or edema LYMPH NODES: no enlarged lymph no maura,spleen normal RECTAL EXAM: No condylomata, rect al exam deferred to upcoming colonoscopy PSYCH: alert, oriented, moo d/affect full range, good eye contact, cooperative with exam, cognitive function intact, speech clear, thought process logical, goal directed ORAL CAVITY: normal, unremarkable Consultation Request Notes Referral Date Referring Provider Referred Provider Not es 02/16/2024 Christiano LazoJune Evaluate and Treat Screen for Colon Cancer 02/16/2024 Christiano Lazo [facility], Urology Neida luate and Treat 02/16/2024 Christiano Lazo MICHAEL Evaluate and Treat
--- OUTSIDE RECORDS SUMMARY | 2024-02-19 05:01 | XMS_ITS ---
Demographics Address [address] [facility] [place] [address] [place] [address] Mobile Email Address Preferred Language en Marital Status Yazdanism Affiliation Unknown Race White Ethnic Group Not or Lati no Author Organization Christiano Lazo III, MD Address [address] [facility] [place] [address] Care Team Providers Care Barrow Worker Helper Name Role Phone Dr. Christiano Lazo III Primary Care Provider [phone] REASON FOR VISIT FYI Social History Sex Assigned At : Social History Observation Description Sex Assigned At Male Encounters Encounter Location Date Provider Diagnosis Christiano Lazo III, MD [address] [place] [address] [place] [address] 02/19/2024 Christiano Lazo Hematuria, unspecifi ed type R31.9 Assessments Encounter Date Diagnosis (ICD Code) Assessment Notes Treat ment Notes Treatment Clinical Notes 02/19/2024 Hematuria, unspecified type (ICD-10 - R31.9) Plan Of Treatment Next Appt Details Provider Name:Christiano Lazo , 01/10/2025 03:15:00 PM, [address] [place] [address] [place], [address], Provider Name:Christiano Lazo , 02/21/2025 01:45:00 PM, [address] [place] [address] [place], [address], Progress Notes * Michael SHELLDOB:1960 (63 yo M)Acc No.[id number]:02/19/2024 Patient: Michael VELARDE :1960 A ge:63 Y S ex:Male Address:[address] [place] [address] [address] , [place] [address] Subjective: * Chief Complaints: * F GERMAN * Medical History: * Surgical History: * Hospitalization/Major Diagno stic Procedure: * Medications: Objective: * Vitals: * Physical Examination: Assessment: * Assessment: 1. H ematuria, unspecified type - R31.9 Plan: * Treatment: * Procedure Codes: * true * Date: Generated for Jessica gee/Sanjuanita/Zakia on: 06:37 PM EDT
--- OUTSIDE RECORDS SUMMARY | 2024-02-21 10:07 | XMS_ITS ---
Demographics Address [address] [place] [address] [address] [facility] [place] [address] Mobile Email Address Preferred Language en Marital Status Jewish Affiliation Unknown Race White Ethnic Group Not or Lati no Author Organization Christiano Lazo III, MD Address [address] [place] [address] Care Team Providers Care Building Components Designer Name Role Phone Dr. Christiano Lzao III Primary Care Provider [phone] REASON FOR VISIT Message Social History Sex Assigned At : Social History Observation Description Sex Assigned At Male Encounters Encounter Location Date Provider Diagnosis Christiano Lazo III, MD [address] [place] [address] [place] [address] 02/21/2024 Christiano Lazo Plan Of Treatment Next Appt Details Provider Name:Christiano Lazo , 01/10/2025 03:15:00 PM, [address] [place] [address] [place], [address], Provider Name:Christiano Lazo , 02/21/2025 01:45:00 PM, [address] [place] [address] [place], [address], Progress Notes * Michael SHELLDOB:1960 (63 yo M)Acc No.[id number]:02/21/2024 Patient: Augustine ALEXANDRAMicheal MORRIS :1960 A ge:63 Y S ex:Male Address:[address] [place] [address] [address] , [place] [address] * true * Date: Generated for Printi ng/Faxing/eTransmitting on: 06:37 PM EDT
--- OUTSIDE RECORDS SUMMARY | 2024-06-14 09:30 | XMS_ITS ---
Author Organization Christiano Lazo III, MD Address [address] [place] [place] [address] Care Team Providers Care Wig Dresser Name Role Phone Dr. Christiano Lazo III Primary Care Provider [phone] Allergies Allergen (clinical drug ingredient) Drug/Non Drug [...] Problem Status W/U Status Risk Notes Problem [id number] Hypogonadism in male (E29.1) Active confirmed He [...] Date Provider Diagnosis Christiano Lazo III, MD [address] [place] [address] [place] [address] 06/14/2024 Christiano Lazo Hypogonadism in male E29.1 [...] His reflux symptoms are well controlled with lgxf-npa-bhdunit medication and no change was necessary. 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 He was born in [facility] near [place]. {'Work Hours':'47.5 hours per week', 'Exercise':'Patient has [...] :His reflux symptoms are well controlled with tzul-wbw-fhywydg medication and no change was necessary. 6 [...] 0 06/14/2024 Generated for Jessica gee/Sanjuanita/Zairaitting on: 06:36 PM EDT History and Physical Notes [...]
--- OUTSIDE RECORDS SUMMARY | 2024-10-11 10:56 | XMS_ITS ---
Demographics Address [address] [facility] [address] [place] [address] Mobile Email Address Preferred Language en Marital Status Anabaptism Affiliation Unknown Race White Ethnic Group Not or Lati no Author Organization Christiano Lazo III, MD Address [address] [place] [address] [place] [address] Care Team Providers Care Client Technical Specialist Name Role Phone Dr. Christiano Lazo III Primary Care Provider [phone] REASON FOR VISIT speak to patient regarding blood in urine Social History Sex Assigned At : Social History Observation Description Sex Assigned At Male Encounters Encounter Location Date Provider Diagnosis Christiano Lazo III, MD [address] [place] [address] [address] [facility] [place] [address] 10/11/2024 Christiano Lazo Plan Of Treatment Next Appt Details Provider Name:Christiano Lazo , 01/10/2025 03:15:00 PM, [address] [place] [address] [place], [address], Provider Name:Christiano Lazo , 02/21/2025 01:45:00 PM, [address] [place] [address] [place] [facility] [place], [address], Progress Notes * Michael SHELLDOB:1960 (64 yo M)Acc No.[id number]:10/11/2024 Patient: Augustine RUBINMichael :1960 A ge:64 Y S ex:Male Address:[address] [place] [address] [address] , [facility] [place] [address] * true * Date: Generated for Printi ng/Faxing/eTransmitting on: 06:37 PM EDT
--- OUTSIDE RECORDS SUMMARY | 2024-10-14 06:11 | XMS_ITS ---
Demographics Address [address] [facility] [address] [place] [address] Mobile Email Address Preferred Language en Marital Status Amish Affiliation Unknown Race White Ethnic Group Not or Lati no Author Organization Christiano Lazo III, MD Address [address] [facility] [place] [address] Care Team Providers Care Book Sewer Name Role Phone Dr. Christiano Lazo III Primary Care Provider REASON FOR VISIT told patient to call Social History Sex Assigned At : Social History Observation Description Sex Assigned At Male Encounters Encounter Location Date Provider Diagnosis Christiano Lazo III, MD [address] [place] [address] [address] [place] [facility] [place] [address] 10/14/2024 Christiano Lazo Plan Of Treatment Next Appt Details Provider Name:Christiano Lazo , 01/10/2025 03:15:00 PM, [address] [place] [address] [place], [address], Provider Name:Christiano Lazo , 02/21/2025 01:45:00 PM, [address] [place] [address] [place], [address], Progress Notes * Michael SHELLDOB:1960 (64 yo M)Acc No.[id number]:10/14/2024 Patient: Augustine RUBINMichael :1960 A ge:64 Y S ex:Male Address:[address] [place] [address] [address] , [facility] [facility] [place] [address] * true * Date: Generated for Printi ng/Faxing/eTransmitting on: 06:35 PM EDT
--- OUTSIDE RECORDS SUMMARY | 2024-10-25 09:45 | XMS_ITS ---
Author Organization Christiano Lazo III, MD Address [address] [place] [address] Care Team Providers Care Automotive Repair Technician Name Role Phone Dr. Christiano Lazo III Primary Care Provider [phone] Allergies Allergen (clinical drug ingredient) Drug/Non Drug Allergy documented on EMR Reaction Allergy Type Onset Date Status No Known Drug Allergy Unknown Drug Allergy Active Reason For Referral Reason Evaluate and Treat Diagnosis 1 Varicose veins (I86. 8) Referral Organization Christiano Lazo III, MD Referring Provider First Name Christiano Referring Provider Last Name Violet Referring Provider Speciality Internal edicine Referred Provider [facility] Referred Provider Specialty Vascular Kaylie ivet [...] Provider Speciality Internal M edicine Referred Provider [facility], Pulmonology Referred Provider Specialty Pulmonary Gertrude dodge General Notes DVerena 10/28/2024 10:45:03 AM > Faxed referral with progress note., Verena Celaya 11/21/2024 02:22:39 PM > Patient was contacted by [facility] Pulmonary was left a message to call and schedule an appointment. Patient was contacted by Dr. Lazo office and was provided with the [facility] Pulmonary phone number to contact them to [...] Omeprazole 20 MG TAKE 1 CAPSULE BY [facility] DAILY Oral Active Vitamin K2 40 [...] Date Provider Diagnosis Christiano Lazo III, MD [address] [place] [address] [address], [place] [address] 10/25/2024 Christiano Lazo Obesity (BMI 30-39.9 ) [...] 10/25/2024 10/25/2024, Evaluate and Treat, [facility] 10/25/2024 10/25/2024, Consult and Treat Snoring Patient needs sleep study Daytime Somnolence, Pulmonology [facility] Next Appt Details Follow Up: 2 Months, Reason: OV Provider Name:Christiano Lazo , 01/10/2025 03:15:00 PM, [address] [place] [address] [address], [place], [address], Provider Name:Christiano Mendes Violet , 02/21/2025 01:45:00 PM, [address] [place] [address] [address], [place], [address], Progress Notes * Michael SHELLDOB:1960 (64 yo M)Acc No.[id number]:10/25/2024 Progress Notes Patient: Michael VELARDE Provider: Chris Lazo MD :1960 A ge:64 Y S ex:Male Date:10/25/2024 Address:[address] [place] [address] [place], [id number] Subjective: * Chief Complaints: * H yperlipidemiaGERDObesityDepressionCervical [...] He was referred to endovascular surgery at [facility] for treatment. He has a colonoscopy scheduled in February at [facility]. He feels healthy and well otherwise. His appetite is good and he is trying to lose weight.He is under the care of [facility] urology for hypogonadism. 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 He was born in [place] near [place]. {'Work Hours':'47.5 hours per week', 'Exercise':'Patient has [...] Date & Time - 09/24/2024 04:26 PM)?ValueReference Range?Qhpudh747569-737 - mmol/L?Bilirubin Total0.50.0-1.0 - mg/dL?Aspartate Amino Dvhwojjbjyc532-94 - U/L?Alanine Iogqtyrovgrlfdnx297-49 - U/L?Total Protein7.96.5-8.0 - g/dL?Albumin Level4.63.5-5.0 - g/dL?Alkaline Joogbxfnmbo2923-834 - U/L?Potassium4.13.3-5.1 - mmol/L?Rudrwids292 96-108 - mmol/L?Carbon Gdauufd7563-05 - mmol/L?Anion Zqa7104-39 - ?Blood Urea Geksihqc177-23 - mg/dL?Creatinine0.880.5-1.4 - mg/dL ?Estimated Glomerular Filt Rate> 60-?Glucose Hrsdev7352-671 - mg/dL?Calcium9.08.4-10.2 - mg/dL * Examination: G [...] TESTOSTRONE INTRAMUSCULARLY EVERY WEEK. Referral To:[facility] Surgery Reason:Evaluate and Treat Referral To:Pulmonology [facility] Pulmonary Diseases Reason:Consult and Treat Snoring Patient [...] 0 10/25/2024 Generated for Jessica gee/Sanjuanita/Zakia on: 06:36 PM EDT History and Physical [...] Referred Provider Not es 10/25/2024 Christiano Lazo [facility] Evaluate and Treat 10/25/2024 Christiano Lazo [facility], Pulmonology Consult and Treat Snoring Patient needs sleep study Daytime Somnolence
--- OUTSIDE RECORDS SUMMARY | 2024-11-20 07:00 | XMS_ITS ---
Author Organization Christiano Lazo III, MD Address [address] [place] [address] Care Team Providers Care Dental Lab Technician Name Role Phone Dr. Christiano Lazo [...] Omeprazole 20 MG TAKE 1 CAPSULE BY [facility] DAILY Oral Active BD Syringe/Needle 23G X [...] Date Provider Diagnosis Christiano Lazo III, MD [address] [place] [address] [address] [place], [place] [id number] 11/20/2024 Christiano Lazo Obesity (BMI 30-39.9 ) [...] organisms (ICD-10 - J20.8) He will use sejz-mga-gstuxmd medication for his symptoms. He was given 5 days of azithromycin and a follow-up appointment. 11/20/2024 Hyperlipidemia (ICD-10 - E78.5) His fasting lipid profile has been ordered prior to his next visit. We reviewed his diet and nutrition today. We made a plan to lose weight. 11/20/2024 GERD without esophagitis (ICD-10 - K21.9) His reflux symptoms are well controlled with esyh-jzi-zpauztk medication and no change was necessary. Plan [...] Omeprazole 20 MG TAKE 1 CAPSULE BY [facility] DAILY Oral BD Syringe/Needle 23G X 1 [...] Next Appt Details Follow Up: As Scheduled, [place] son: OV Provider Name:Christiano Lazo , 01/10/2025 03:15:00 PM, [address] [place] [address] [address], [place], [phone], Provider Name:Christiano Lazo , 02/21/2025 01:45:00 PM, [address] [place] [address] [address], [place], [phone], Progress Notes * SULEMAN MichaelDOB:1960 (64 yo M)Acc No.[id number]:11/20/2024 Patient: Michael VELARDE Provider: Chris Lazo MD :1960 A ge:64 Y S ex:Male Date:11/20/2024 Address:[address] [place] [address] 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 He was born in [place]. {'Work Hours':'47.5 hours per week', 'Exercise':'Patient has [...] Date & Time - 09/24/2024 04:26 PM)?ValueReference Range?Ptozkz023706-263 - mmol/L?Bilirubin Total0.50.0-1.0 - mg/dL?Aspartate Amino Pboksuommsr622-31 - U/L?Alanine Mqjbtabubebyuvyb483-05 - U/L?Total Protein7.96.5-8.0 - g/dL?Albumin Level4.63.5-5.0 - g/dL?Alkaline Ubhhfbrhdfb2292-050 - U/L?Potassium4.13.3-5.1 - mmol/L?Uvncggwt755 96-108 - mmol/L?Carbon Glcserw3815-26 - mmol/L?Anion Gkp9333-55 - ?Blood Urea Mbhljqlm061-20 - mg/dL?Creatinine0.880.5-1.4 - mg/dL ?Estimated Glomerular Filt Rate> 60-?Glucose Rwdjsy2366-130 - mg/dL?Calcium9.08.4-10.2 - mg/dL Assessment: * Assessment: 1. A cute bronchitis due to other specified organisms - J20.8 (Primary) N otes :He will use sjdt-fzw-kphhcjl medication for his symptoms. He was given [...] :His reflux symptoms are well controlled with ovrn-hdn-ydhcady medication and no change was necessary. Plan: [...] 0 11/20/2024 Generated for Jessica gee/Sanjuanita/Zakia on: 06:35 PM EDT History and Physical Notes * HPI (History of Present Illness) Category Sub-Category Detail Notes Telehealth Location of [facility] rendering services:: {...} [address] [place] [address] Drive [address] [place] [id number] Location of patient:: address listed in demographics [...]
--- OUTSIDE RECORDS SUMMARY | 2024-12-20 10:00 | XMS_ITS ---
Author Organization Christiano Lazo III, MD Address [address] [place] [address] Care Team Providers Care Hoist Mechanic Name Role Phone Dr. Christiano Lazo [...] Problem Status W/U Status Risk Notes Problem [id number] Shoulder impingement (M25.819) Active confirmed He has a discomfort in left shoulder primarily when he wakes up in the morning runs down into his left hand. This is likely nerve impingement. He is going to see his chiropractor next week. If it does not resolve quickly x-rays will be done and he will see orthopedics. Problem 029167683 Overweight (E66.3) Active confirmed He remains slightly overweight. He has lost 14 pounds since his last visit. I recommended he continue to lose weight into his body mass index is in the normal range through regular exercise and a diet restricted in fat calories and sodium. Vital Signs Temperature 98.0 degrees Fahrenheit 12/21/19 25 Blood pressure systolic 136 mm Hg 12/21/19 25 Blood pressure diastolic 78 mm Hg 025 Heart Rate 69 /min 12/20/2024 Height 72 in 12/20/2024 Weight 210 lbs 12/20/2024 BMI 28.48 kg/m2 12/20/2024 Encounters Encounter Location Date Provider Diagnosis Christiano Lazo III, MD [address] [place] [address] [place] [address] 12/20/2024 Christiano Lazo Encounter for immunization Z23 [...] Weeks, Reason: Telehealth Provider Name:Christiano Lazo , 01/10/2025 03:15:00 PM, [address] [place] [address] [address], [place], [address], Provider Name:Christiano Lazo , 02/21/2025 01:45:00 PM, [address] [place] [address] [address], [place], [address], Progress Notes * Michael SHELLDOB:1960 (64 yo M)Acc No.[id number]:12/20/2024 Progress Notes Patient: Michael VELARDE Provider: Chris Lazo MD :1960 A ge:64 Y S ex:Male Date:12/20/2024 Address:[address] [place] [address] [place] [id number] Subjective: * Chief Complaints: * G ERDObesityUmbilical [...] A ggressive non-smoker 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 He was born in [facility] near [place]. {'Work Hours':'47.5 hours per week', 'Exercise':'Patient has [...] Date & Time - 09/24/2024 04:26 PM)?ValueReference Range?Rhffyv931717-421 - mmol/L?Bilirubin Total0.50.0-1.0 - mg/dL?Aspartate Amino Yxegfbahsnj899-93 - U/L?Alanine Xcodxwipscmjxtaj711-08 - U/L?Total Protein7.96.5-8.0 - g/dL?Albumin Level4.63.5-5.0 - g/dL?Alkaline Cqcstzhtifh3714-342 - U/L?Potassium4.13.3-5.1 - mmol/L?Ufdvpjrh367 96-108 - mmol/L?Carbon Zglqbtl0989-46 - mmol/L?Anion Liy4609-02 - ?Blood Urea Dqyirpit527-46 - mg/dL?Creatinine0.880.5-1.4 - mg/dL ?Estimated Glomerular Filt Rate> 60-?Glucose Emeuyr1930-584 - mg/dL?Calcium9.08.4-10.2 - mg/dL * Examination: G [...] (Dose No:1) (Route: Intramuscular) given by Gerardo BACON P on Left Arm ???Immunization record has been reviewed and updated. * Procedure Codes: 9 0674 CCIIV4 VAC NO PRSV 0.5 ML [id number] FLU VACC 4 ELLI 3 YRS PLUS [...] Chris Lazo MD Date: Generated for Jessica gee/Sanjuanita/Zakia on: 06:36 PM [...]
--- OUTSIDE RECORDS SUMMARY | 2024-12-27 13:00 | XMS_ITS ---
Demographics Address [address] [facility] [address] [place] [address] Mobile Email Address Preferred Language en Marital Status Yazidi Affiliation Unknown Race White Ethnic Group Not or Lati no Author Organization Christiano Lazo III, MD Address [address] [place] [address] [place] [address] Care Team Providers Care Field Service Consultant Name Role Phone Dr. Christiano Lazo III Primary Care Provider REASON FOR VISIT Follow up Social History Sex Assigned At : Social History Observation Description Sex Assigned At Male Encounters Encounter Location Date Provider Diagnosis Christiano Lazo III, MD [address] [place] [address] [place] [address] 12/27/2024 Christiano Lazo Plan Of Treatment Next Appt Details Provider Name:Christiano Lazo , 01/10/2025 03:15:00 PM, [address] [place] [address] [place], [address], Provider Name:Christiano Lazo , 02/21/2025 01:45:00 PM, [address] [place] [address] [place], [address], Progress Notes * Michael SHELLDOB:1960 (64 yo M)Acc No.[id number]:12/27/2024 Progress Notes Patient: Michael VELARDE Provider: Chris Lazo MD :1960 A ge:64 Y S ex:Male Date:12/27/2024 Address:[address] [place] [address] [address] , [place] [id number] Subjective: * Chief Complaints: * 1 . [...]
[2024-12-30 15:32] VITALS: BP 122/62; PULSE 68; O2SAT 95; BMI 28.8
--- NOTE | 2024-12-30 15:32 | A.OFFVIS_ITS ---
Vital Signs 12/30/24 15:32 Height 6 ft 1 in Weight 218 lb 4.122 oz BMI 28.8 BP 122/62 Blood Pressure Location Lt brachial Position Sitting Pulse 68 Pulse Source Pulse Oximeter Pulse Oximetry (%) 95 Oxygen Delivery Method Room Air Intake Visit Reasons: Somnolence Intake Note: pt is here as a new patient for eulalio work up, he does snore, some daytime fatigue, he sleeps only a few hours at a time. Biopsychologist Required: No Logistics Loss Prevention Manager: Logistics Loss Prevention Manager offered & declined Allergies No Known Allergies Allergy (Verified 12/30/24 16:08) Medication List - Last Reconciled 12/30/24 by Stella Sheppard MD bisacodyl (Dulcolax (bisacodyl)) 10 mg (2 x 5 mg) PO BEDTIME 2 days needle (disp) 18 G (BD Regular [place]) As directed peg 3350-electrolytes 236-22.74-6.74 -5.86 gram (Golytely) 240 mL PO Q10M 1 day syringe with needle (BD SafetyGlide Syringe) As directed syringe with needle, safety (BD Integra Syringe) As directed tadalafil 20 mg PO testosterone cypionate 150 mg IM QWEEK Do you need a note to return to daycare/school/sports/work: No HPI HPI Somnolence: Details: This 64 years old gentleman is being seen for the 1st time, referred by his PCP he because of his ongoing sleep problems. He has history of snoring at night, waking up with dry mouth during the middle of the night and then having hard time to go back to sleep. He has not been getting enough sleep and does have daytime sleepiness as well as tired feeling . This has been going on for almost a year. In the past 2 months he has try to lose weight by following low carbs diet. He has lost about 12-13 lb and and notices that his dry mouth is less than before. He can sleep about an hour. longer than before But he is still somewhat tired during the daytime. He has been told in the past by his dentist that he has a slight overbite problems. He has history of erectile dysfunction. And currently using tadalafil 20 mg prn. He is also on testosterone cypionate 150 mg IM Q 1 week. He is nonsmoker Has a few drinks of alcohol over weekends are special occasions.. Denies any symptoms of cough wheezing or shortness of breath on exertion. He does have history of intermittent nasal congestion, has tried OTC antihistaminics which do not help much. 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 [facility] Medical History (Updated 12/30/24 @ 16:47 by Stella Sheppard MD) Obesity (BMI 30.0-34.9) Somnolence Snoring Surgical History H/O esophagogastroduodenoscopy H/O colonoscopy H/O myringotomy Social History Household Members: Family Alcohol intake: current Alcohol intake frequency: holidays/special occasions only Patient Tobacco Use Status: Never used Tobacco Review of Systems Const All systems reviewed & are unremarkable except as noted in HPI and below Eyes Reports no additional complaints ENT Reports nasal congestion (Intermittent) Card Denies syncope, Denies irregular heart rhythm, Denies leg edema and Denies lightheadedness Resp Reports as per HPI GI Reports no additional complaints Reports erectile dysfunction Musc Reports no additional complaints Skin/Breast Reports system reviewed and no additional complaints, except as documented Neuro Reports no additional complaints and Denies syncope Psych Reports no additional complaints Endo Reports no additional complaints Yusuf/Lymph Reports no additional complaints Aller/Immun Reports no additional complaints Physical Exam Vital Signs: Last Vital Signs Pulse 68 12/30/24 15:32 BP 122/62 12/30/24 15:32 Pulse Ox 95 12/30/24 15:32 Oxygen Delivery Method Room Air 12/30/24 15:32 BMI result Body Mass Index 28.8 Const General: healthy appearing, comfortable, no acute distress, alert and awake Orientation/consciousness: patient oriented x3 HEENT Head: Yes normal to inspection General nose exam: No nasal polyps present and No nasal discharge present Face and sinus: Yes sinuses nontender Mouth: oropharynx normal Throat: Yes posterior oropharynx normal and Yes other (Mild retroganthia of the lower jaw.) Eyes General: appearance normal, both eyes and all related structures Neck Neck: Yes normal visual inspection, Yes no lymphadenopathy, Yes trachea midline and Yes no JVD Thyroid: Thyroid normal Chest Chest palpation & inspection: normal inspection of the chest, normal palpation of entire chest wall and no tenderness Resp Effort & Inspection: normal respiratory effort Auscultation: clear to auscultation bilaterally, no crackles and no wheezes Cardio Palpation: normal PMI Rate: regular rate Rhythm: regular rhythm Heart sounds: no gallops and no murmurs Peripheral pulses: Peripheral pulses 2+ throughout GI Palpation (GI): Soft to palpation, nontender, No hepatosplenomegaly present and no masses Auscultation: normal bowel sounds Back/Spine/Pelvis Thoracic/Lumbar Spine: thoracic and lumbar spine normal to inspection Skin General skin exam: no rashes or lesions noted Neuro General: patient oriented x3 and no focal motor deficits Cranial nerves: Yes CN's II-XII intact bilaterally Extrem General: Yes normal to inspection, Yes no clubbing, cyanosis or edema and Yes no calf tenderness Psych Appearance: well kempt Speech and movement: Normal speech and movement present Assessment & Plan Assessment & Plan (1) Snoring: Comment: THIS GENTLEMAN'S MAIN COMPLAINT IS SNORING AND WAKING UP WITH A DRY MOUTH. IT IS SOMEWHAT DECREASED SINCE HE HAS LOST WEIGHT. Code(s): R06.83 - Snoring Category: Medical Plan: THIS IS PART OF HIS POSSIBLE SLEEP APNEA, AND WILL NEED A HOME-BASED SLEEP STUDY TO CHECK FOR THE SLEEP HOMER. (2) Somnolence: Comment: HE GETS POOR SLEEP AT NIGHT AND DOES HAVE TENDENCY TO BE TIRED AND SLEEPY DURING THE DAYTIME Code(s): R40.0 - Somnolence Category: Medical Plan: AFTER DISCUSSION WITH HIM AND TO RULE OUT POSSIBILITY OF OBSTRUCTIVE SLEEP APNEA WE WILL GO AHEAD AND ORDER A HOME-BASED SLEEP STUDY (3) Obesity (BMI 30.0-34.9): Comment: HE DOES HAVE HISTORY OF MODERATE OBESITY CURRENTLY HE IS THE CONTROLLING HIS DIET FOR THE LAST 2 MONTHS AND THE WEIGHT HAS COME DOWN TO CURRENT BMI OF 29 Code(s): E66.9 - Obesity, unspecified Category: Medical Plan: HE IS ENCOURAGED TO CONTINUE RESTRICTED CALORIES INTAKE AND LOW-CARBOHYDRATE DIET Orders: Orders RT home sleep study Today E66.9 - Obesity, unspecified, R06.83 - Snoring, R40.0 - Somnolence Coding Level of Care Code New Pt Level 3 (91506) Diagnoses Snoring R06.83 Somnolence R40.0 Obesity (BMI 30.0-34.9) E66.9
--- OUTSIDE RECORDS SUMMARY | 2024-12-30 18:36 | XMS_ITS | Clinical Summary ---
Author Organization [address] Address [address] [place] [address] Phone Care Team Providers Care Side Splitter Name Role Phone Christiano Lazo MD Primary Care Provider [phone] Social History Tobacco Use Types Packs/Day Years Used Date Smoking Tobacco: Never Assessed Sex and Gender Information Value Date Recorded Sex Assigned at Not on file Legal Sex Male 9:21 AM EST Gender Identity Not on file Sexual Orientation Not on file Plan of Treatment Health Maintenance Due Date Last Done Comments Colorectal Cancer Screening: Colonoscopy 1961 DTaP,Tdap,and Td Vaccines (1 - Tdap) 1980 Pneumococcal Vaccine: 50+ Ye ars (1 of 1 - PCV) 09/20/2011 Zoster Vaccines (1 of 2) 09/20/2011 Depression Screening 03/06/2024 Cholesterol Screening (Lipid Panel) 05/08/2024 HIV Screening 05/08/2024 Hepatitis C Screening 05/08/2024 Social Influencers of Health Screening 05/08/2024 COVID-19 Vaccine (1 - 2023-2 5 season) 2024 Influenza Vaccine (#1) 2024 RSV Immunization Adult [...] patient's age to complete this topic Insurance [facility] [id number] [facility] Care Teams Side Splitter Relationship Specialty Start Date End Date Christiano Lazo MD [address] [facility] [address] [place] [address] PCP - General Oncology 05/07/24
--- OUTSIDE RECORDS SUMMARY | 2024-12-30 18:36 | XMS_ITS | Patient Health Record ---
Author Organization Christiano Lazo III, MD Address [address] [place] [address] Care Team Providers Care Needlemaker Name Role Phone Dr. Christiano Lazo III Primary Care Provider [phone] Allergies Allergen (clinical drug ingredient) Drug/Non Drug [...] date:06/10/2024 10:37:30 AM Interpretation: Performing Lab: Notes/Report: Complete Blood Count Auto Di ff Reviewed date:10/05/2024 07:16:05 PM Interpretation: Performing Lab:[facility], [address] [place] [id number] Notes/Report: White Blood Count 8.7 4.8-10.8 X10*3/uL [...] Panel Reviewed date:10/05/2024 07:16:05 PM Interpretation: Performing Lab:[facility], [address] [place] [id number] Notes/Report: Sodium 139 135-145 mmol/L Potassium 4.1 3.3-5.1 mmol/L Slight Hemoly sis.Interpret result with caution. Chloride 106 96-108 mmol/L [...] Aspartate Amino Transferase 29 5-37 U/L Slight Hemolysis.Interpret result with caution. Alanine Aminotransferase 27 0-40 [...] Referring Provider Speciality Internal edicine Referred Provider [facility] Referred Provider Specialty Physical [...] , licensed (effective September 1972) General Notes 02/19/2024 03:42:13 PM > Faxed referral and progress note Referral Priority Routine Referral Appointment Date 05/27/2024 Reason Evaluate and Treat Diagnosis 1 Varicose veins (I86. 8) Referral Organization Christiano Lazo III, MD Referring Provider First Name Christiano Referring Provider Last Name Violet [facility] Referred Provider [facility] Referred Provider Specialty Vascular Kaylie cooney General Notes 10/28/2024 10:47:02 AM > referral faxed with progress note, D11/20/2024 02:36:26 PM > Patient was called to schedule appointment by office was left a voicemail. Dr. Lazo office spoke with patient and provided number for patient to call and schedule an appointment., D11/20/2024 03:12:24 PM > Patient is scheduled for [...] Referring Provider Speciality Internal edicine Referred Provider [facility] er, Pulmonology Referred Provider Specialty Pulmonary Gertrude dodge General Notes 10/28/2024 10:45:03 AM > Faxed referral with progress note., D11/21/2024 02:22:39 PM > Patient was contacted by [facility] Pul[facility] was left a message to call and schedule an appointment. Patient was contacted by Dr. Lazo office and was provided with the [facility] Pul[facility] phone number to contact them to schedule an appointment. Referral Priority Routine Referral Appointment Date 12/30/2024 Medications Medication SIG (Take, Route, Frequency, Duration) Notes Start Date End Date Status Omeprazole 20 MG TAKE 1 CAPSULE BY [facility] DAILY Oral Active Testosterone Cypionate 200 MG/ML INJECT 0.75ML ONCE EVERY WEEK, DISCARD REMAINDER Intramuscular Active BD Integra Syringe 23G X 1 3 ML USE WITH TESTOSTERONE ONCE WEEKLY Active Zinc 30 MG 1 capsule Orally [...] Unknown 10/09/2024 Administered PCV20 Unknown 10/09/2024 Administered SHINGRIX Unknown 12/11/2024 Administered Influenza Vaccine Afluria IM Intramuscular 12/20/2024 Admi [...] Problem Status W/U Status Risk Notes Problem 64786711 Hyperlipidemia (E78.5) Active confirmed His fasting lipid profile has been ordered prior to his next visit. We reviewed his diet and nutrition today. We made a plan to lose weight. Problem 163742265 Overweight (E66.3) Active confirmed He remains slightly overweight. He has lost 14 pounds since his last visit. I recommended he continue to lose weight into his body mass index is in the normal range through regular exercise and a diet restricted in fat calories and sodium. Problem Major depression, single episode (74453009) Major depressive disorder, single episode, unspecified (F32.9) Active confirmed He is worried about hhis financial situation but his depression is mild. He said he does not require medication at this time. He will be followed regularly. Problem 523431378 GERD without esophagitis (K21.9) Active confirmed His reflux symptoms are well controlled with pyni-lav-mdlox er medication and no change was necessary. Problem 099446677 Obesity (BMI 30-39.9) (E66.9) Active confirmed He has gain ed 5 pounds. His body mass index is 31.37. We discussed his diet and nutrition. We made a plan for him to lose weight at a rate of one half of a pound per week. Problem Neuropathy (973555155) Neuropathy (G62.9) Active confirmed Problem Cervical radiculopathy (94874220) Cervical radiculopathy (M54.12) Active confirmed The pain in the shoulder is not reproduced by manipulation of the neck at this time. His neck is pain-free currently. Problem 148823676 Umbilical hernia (K42.9) Active confirmed A small umbilical hernia is present but is causing no symptoms or will be observed without treatment. Problem 508831666 Condyloma acuminata (A63.0) Active confirmed No new lesions were seen today. Problem 811424072 ED (erectile dysfunction) (N52.9) Active confirmed This problem was addressed with medication which she says is no longer working well. He will be referred to urology if it persists. Problem 93473119 Otitis media (H66.90) Active confirmed He was referred back to his otolaryngologi st, Dr. Sosa, for consideration of drainage of the year and appropriate therapy. Problem 14692689 Hypogonadism in male (E29.1) Active confirmed He says he is receiving injections of testosterone given by the urologist. This was continued. Problem 257930740 Microscopic hematuria (R31.29) Active confirmed He has had no episodes of gross hematuria. He occasionally rises at night to urinate but has not had any frequency or dysuria or overflow incontinence. In March 2016 he saw a urologist, Dr. Jaylen Moore, who reviewed his radiographic evaluation and decided he could be followed without cystoscopy. Problem Daytime somnolence (803032151467) Daytime somnolence (R40.0) Active confirmed Problem 891528798 Shoulder impingement (M25.819) Active confirmed He has a discomfort in left shoulder primarily when he wakes up in the morning runs down into his left hand. This is likely nerve impingement. He is going to see his chiropractor next week. If it does not resolve quickly x-rays will be done and he will see orthopedics. Vital Signs Heart Rate 69 /min 12/20/2024 Temperature 98.0 degrees Fahrenheit 12/20/2024 Blood pressure diastolic 78 mm Hg 12/20/2024 Height 72 in 12/20/2024 Blood pressure systolic 136 mm Hg 12/20/2024 Weight 210 lbs 12/20/2024 BMI 28.48 kg/m2 12/20/2024 Encounters Encounter Location Date Provider Diagnosis Christiano Lazo III, MD [address] [place] [address] [place] [address] 01/05/2024 Christiano Lazo Cervical radiculopat hy M54.12 ; Obesity (BMI 30-39.9) E66.9 ; Umbilical hernia K42.9 ; Hyperlipidemia E78.5 and GERD without esophagitis K21.9 Christiano Lazo III, MD [address] [place] [address] [place] [address] 02/16/2024 Christiano Lazo ED (erectile dysfunction) N52.9 ; Obesity (BMI 30-39.9) E66.9 ; Hyperlipidemia E78.5 ; Pyuria R82.81 ; Condyloma acuminata A63.0 ; Reflux esophagitis K21.0 ; Cervical radiculopathy M54.12 and Major depressive disorder, single episode, unspecified F32.9 Christiano Lazo III, MD [address] [place] [address] [place] [address] 06/14/2024 Christiano Lazo Hypogonadism in male E29.1 ; Major depressive disorder, single episode, unspecified F32.9 ; Cervical radiculopathy M54.12 ; Obesity (BMI 30-39.9) E66.9 ; GERD without esophagitis K21.9 ; Hyperlipidemia E78.5 and Umbilical hernia K42.9 Christiano Lazo III, MD [address] [place] [address] [place] [address] 10/25/2024 Christiano Lazo Obesity (BMI 30-39.9 ) E66.9 ; Umbilical hernia K42.9 ; Hyperlipidemia E78.5 ; ED (erectile dysfunction) N52.9 ; Condyloma acuminata A63.0 ; Major depressive disorder, single episode, unspecified F32.9 ; Cervical radiculopathy M54.12 and Hypogonadism in male E29.1 Christiano Lazo III, MD [address] [place] [address] [place] [address] 11/20/2024 Christiano Lazo Obesity (BMI 30-39.9 ) E66.9 ; Acute bronchitis due to other specified organisms J20.8 ; Hyperlipidemia E78.5 and GERD without esophagitis K21.9 Christiano Lazo III, MD [address] [place] [address] [place] [address] 12/20/2024 Christiano Lazo Encounter for immunization Z23 ; Shoulder impingement M25.819 ; Overweight E66.3 ; Hyperlipidemia E78.5 ; Hypogonadism in male E29.1 and Cervical radiculopathy M54.12 Christiano Lazo III, MD [address] [place] [address] [place] [address] 02/19/2024 Christiano Lazo Hematuria, unspecifi ed type R31.9 Christiano Lazo III, MD [address] [place] [address] [place] [address] 02/21/2024 Christiano Lazo III, MD [address] [place] [address] [place] [address] 10/11/2024 Christiano Lazo III, MD [address] [place] [address] [place] [address] 10/14/2024 Christiano Lazo Assessments Encounter Date Diagnosis (ICD Code) Assessment Notes Treat ment Notes Treatment Clinical Notes 01/05/2024 Obesity (BMI 30-39.9 ) (ICD-10 - [...] organisms (ICD-10 - J20.8) He will use bdei-ugp-nxbfpjk medication for his symptoms. He was given 5 days of azithromycin and a follow-up appointment. 11/20/2024 Obesity (BMI 30-39.9 ) (ICD-10 - E66.9) He has gained 5 pounds. His body mass index is 31.37. We discussed his diet and nutrition. We made a plan for him to lose weight at a rate of one half of a pound per week. 12/20/2024 Encounter for immunization (ICD-10 - Z23) [...] be done and he will see orthopedics. 02/19/2024 Hematuria, unspecified type (ICD-10 - R31.9) 01/05/2024 Umbilical hernia (ICD-10 - K42.9) A [...] made a plan to lose weight. 12/20/2024 Overweight (ICD-10 - E66.3) He remains slightly overweight. He has lost 14 pounds since his last visit. I recommended he continue to lose weight into his body mass index is in the normal range through regular exercise and a diet restricted in fat calories and sodium. 01/05/2024 Hyperlipidemia (ICD-10 - E78.5) He is [...] His reflux symptoms are well controlled with clwt-wjs-ezwyzzu medication and no change was necessary. 12/20/2024 Hyperlipidemia (ICD-10 - E78.5) His fasting lipid profile has been ordered prior to his next visit. We reviewed his diet and nutrition today. We made a plan to lose weight. 01/05/2024 GERD without esophagitis (ICD-10 - K21.9) His reflux symptoms are well controlled with vbqy-uic-vzthvks medication and no change was necessary. 02/16/2024 Condyloma acuminata (ICD-10 - A63.0) No new lesions were seen today. 06/14/2024 GERD without esophagitis (ICD-10 - K21.9) His reflux symptoms are well controlled with ierg-xga-rdrjhua medication and no change was necessary. 10/25/2024 Condyloma acuminata (ICD-10 - A63.0) No new lesions were seen today. 12/20/2024 Hypogonadism in male (ICD-10 - E29.1) He says he is receiving injections of testosterone given by the urologist. This was continued. 02/16/2024 Reflux esophagitis (ICD-10 - K21.0) He [...] this time. He will be followed regularly. 12/20/2024 Cervical radiculopathy (ICD-10 - M54.12) The pain in the shoulder is not reproduced by manipulation of the neck at this time. His neck is pain-free currently. 02/16/2024 Cervical radiculopathy (ICD-10 - M54.12) I [...] FASTING (COMPREHENSIVE METABOLI C) 09/11/2017 LIPID PANEL 09/11/2017 LIPID PANEL 10/02/2019 LIPID PANEL 08/30/2019 LIPID PANEL 06/06/2016 LIPID PANEL 10/30/2018 LIPID PANEL 02/21/2018 LIPID PANEL 05/05/2017 LIPID PANEL 02/01/2022 LIPID PANEL 07/27/2020 LIPID PANEL 11/17/2021 LIPID PANEL 05/22/2018 LIPID PANEL 01/04/2017 LIPID PANEL 04/19/2019 FREE T4 (FT4) 07/23/2021 FREE T4 (FT4) 08/30/2019 TSH (THYROID STIMULATING HORMONE) 2021 TSH (THYROID STIMULATING HORMONE) 2019 PSA, TOTAL 02/01/2022 PSA, TOTAL 07/23/2021 PSA, TOTAL 11/17/2023 PSA, TOTAL 07/27/2020 PSA, TOTAL SCREEN 11/17/2021 CBC w DIFF 05/22/2018 CBC w DIFF 07/23/2021 CBC w DIFF 07/27/2020 CBC w DIFF 01/04/2017 CBC w DIFF 11/17/2021 CBC w DIFF 09/11/2017 CBC w DIFF 10/02/2019 CBC w DIFF 06/14/2024 CBC w DIFF 06/06/2016 CBC w DIFF 10/30/2018 CBC w DIFF 05/05/2017 CBC w DIFF 08/30/2019 CBC w DIFF 02/01/2022 SED RATE (ESR) 08/30/2019 URINALYSIS (UA) 02/16/2024 [...] Provider Name:Christiano Lazo , 01/10/2025 03:15:00 PM, [address] [place] [address] [address], [place], [address], Provider Name:Christiano Lazo , 02/21/2025 01:45:00 PM, [address] [place] [address] [address] [place], [place], [address], Insurance Providers Payer Name Payer Address Payer Phone Subscriber Number Group Number Insured Name Patient Relationship to Insured Coverage Start Date Coverage End Date [employer] [address] [place] [phone] [id number] Michael Menezes Self - patient is the [...]
--- OUTSIDE RECORDS SUMMARY | 2024-12-30 18:37 | XMS_ITS | Encounter Summary ---
Author Organization [facility] [place] [address] Care Team Providers Care Lan Administrator Name Role Phone Christiano Lazo MD Primary Care Provider [phone] Encounter Details Date Type Department Care Team (Late st Contact Info) Description 05/07/2024 Lab Requisition [facility] - Main Lab [address] [place] [address] Rashel Cadena MD [address] [address] Testicular hypofunction Social History Tobacco Use Types Packs/Day Years Used Date Smoking Tobacco: Never Assessed Sex and Gender Information Value Date Recorded Sex Assigned at Not on file Legal Sex Male 9:21 AM EST Gender Identity Not on file Sexual Orientation Not on file documented as of this encounter Plan of Treatment Not on file documented as of this encounter Procedures Procedure Name Priority Date/Time Associated Diagnosis Comments COMPLETE BLOOD COUNT Routine 05/07/2024 9:54 AM EST Testicular hypofunction documented in this encounter Results * Complete blood count (05/07/2024 9:54 AM EST) WBC 5.9 4.8 - 10.8 K/[facility] LAB HEMETOLOGY METHOD 05/07/2024 2:[address] [facility] RBC 4.70 4.50 - 5.50 M/[facility] LAB HEMETOLOGY METHOD 05/07/2024 2:[address] [facility] Hemoglobin 14.7 13.5 - 17.5 g/dL LAB HEMETOLOGY METHOD 05/07/2024 2:22 PM [facility] Hematocrit 42.8 42.0 - 54.0 % LAB HEMETOLOGY METHOD 05/07/2024 2:22 PM [facility] MCV 91.3 79.0 - 98.0 FL LAB HEMETOLOGY METHOD 05/07/2024 2:[address] [facility] MCH 31.3 27.0 - 32.0 pcg LAB HEMETOLOGY METHOD 05/07/2024 2:22 PM [facility] MCHC 34.3 32.0 - 37.0 g/dL LAB HEMETOLOGY METHOD 05/07/2024 2:22 PM [facility] RDW 12.6 11.0 - 15.0 % LAB HEMETOLOGY METHOD 05/07/2024 2:22 PM [facility] Platelets 228 130 - 400 K/mcL LAB HEMETOLOGY METHOD 05/07/2024 2:22 PM [facility] MPV 9.6 7.0 - 11.0 FL LAB HEMETOLOGY METHOD 05/07/2024 2:22 PM [facility] NRBC 0.0 <1.0 % LAB HEMETOLOGY METHOD 05/07/2024 2:22 PM [facility] NRBC Absolute 0.00 <0.10 K/mcL LAB HEMETOLOGY METHOD 05/07/2024 2:22 PM [facility] Blood Venous blood specimen / Unknown 05/07/2024 9:54 AM EST 05/07/2024 2:08 PM EST us Rashel Cadena MD LAB BLOOD ORDERABLES Final Result [facility] [address] [place], [place] [address] [phone] documented in this encounter Visit Diagnoses Diagnosis Testicular hypofunction Other testicular hypofunction documented in this encounter Care Teams Lan Administrator Relationship Specialty Start Date End Date Christiano Lazo MD [address] [address] PCP - General Oncology 05/07/24 documented as of this encounter
== END 2024-12-30 16:11 | disposition home or self-care (01) ==
LOC: HO.HPS 15:21
PROVIDERS: PCP Internal Medicine Medical Oncology; Referring Provider Internal Medicine Medical Oncology; Visit Provider Internal Medicine
DX: R06.83 Snoring (principal); R40.0 Somnolence; E66.9 Obesity, unspecified
CPT/HCPCS: 99203

== ENCOUNTER 2025-01-16 08:40 | Outpatient (REF) | payer OTHER, SELFPAY ==
--- OUTSIDE RECORDS SUMMARY | 2024-02-19 04:01 | XMS_ITS ---
Author Organization Christiano Lazo III, MD Address [address] [place] [address] [address] [facility] [place] [address] Care Team Providers Care Tipple Operator Name Role Phone Dr. Christiano Lazo III Primary Care Provider REASON FOR VISIT FYI Social History Sex Assigned At : Social History Observation Description Sex Assigned At Male Encounters Encounter Location Date Provider Diagnosis Christiano Lazo III, MD [address] [place] [address] [address] [facility] [place] [address] 02/19/2024 Christiano Lazo Hematuria, unspecifi ed type R31.9 Assessments Encounter Date Diagnosis (ICD Code) Assessment Notes Treat ment Notes Treatment Clinical Notes 02/19/2024 Hematuria, unspecified type (ICD-10 - R31.9) Plan Of Treatment Next Appt Details Provider Name:Christiano Lazo , 02/21/2025 01:45:00 PM, [address] [place] [address] [address], [place], [address], Progress Notes * Michael SHELLDOB:1960 (63 yo M)Acc No.[id number]:02/19/2024 Patient: Michael VELARDE :1960 A ge:63 Y S ex:Male Address:[address] [place] [address] , [place] [address] Subjective: * Chief Complaints: * F SLOVAK * Medical History: * Surgical History: * Hospitalization/Major Diagno stic Procedure: * Medications: Objective: * Vitals: * Physical Examination: Assessment: * Assessment: 1. H ematuria, unspecified type - R31.9 Plan: * Treatment: * Procedure Codes: * true * Date: Generated for Jessica gee/Sanjuanita/Zakia on: 03/18/2024 09:01 AM EST
--- OUTSIDE RECORDS SUMMARY | 2024-02-21 09:07 | XMS_ITS ---
Demographics Address [address] [place] [address] Mobile Email Address Preferred Language en Marital Status Confucianism Affiliation Unknown Race White Ethnic Group Not or Lati no Author Organization Christiano Lazo III, MD Address [address] [place] [address] Care Team Providers Care Hemmer Chainstitch Name Role Phone Dr. Christiano Lazo III Primary Care Provider [phone] REASON FOR VISIT Message Social History Sex Assigned At : Social History Observation Description Sex Assigned At Male Encounters Encounter Location Date Provider Diagnosis Christiano Lazo III, MD [address] [place] [address] [address] [place] [address] 02/21/2024 Christiano Lazo Plan Of Treatment Next Appt Details Provider Name:Christiano Lazo , 02/21/2025 01:45:00 PM, [address] [place] [address] [address], [place], [address], Progress Notes * Michael SHELLDOB:1960 (63 yo M)Acc No.[id number]:02/21/2024 Patient: Augustine Michael CONKLIN :1960 A ge:63 Y S ex:Male Address:[address] , [place] [address] * true * Date: Generated for Jessica gee/Sanjuanita/eTransmitting on: 03/18/2024 09:01 AM EST
--- OUTSIDE RECORDS SUMMARY | 2024-06-14 08:30 | XMS_ITS ---
Author Organization Christiano Lazo III, MD Address [address] [facility] [place] [address] Care Team Providers Care Clinical Lab Technologist Name Role Phone Dr. Christiano Lazo III [...] Problem Status W/U Status Risk Notes Problem [id number] Hypogonadism in male (E29.1) Active confirmed He says he is receiving injections of testosterone given by the urologist. This was continued. Vital Signs Temperature 98.6 degrees Fahrenheit 06/15/19 25 Blood pressure systolic 140 mm Hg 06/15/19 25 Blood pressure diastolic 76 mm Hg 025 Heart Rate 73 /min 06/14/2024 Height 72 in 06/14/2024 Weight 233 lbs 06/14/2024 BMI 31.6 kg/m2 06/14/2024 Encounters Encounter Location Date Provider Diagnosis Christiano Lazo III, MD [address] [place] [address] [place] [address] 06/14/2024 Christiano Lazo Hypogonadism in male E29.1 [...] His reflux symptoms are well controlled with mkaw-efq-gkjcxdr medication and no change was necessary. 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 He was born in [facility] near [place]. {'Work Hours':'47.5 hours per week', 'Exercise':'Patient has [...] F32.9 N otes :He is worried about is financial situation but his depression is mild. [...] :His reflux symptoms are well controlled with azcw-mvk-rkytxte medication and no change was necessary. 6 [...] MD Date: 0 06/14/2024 Generated for Jessica gee/Sanjuanita/Dawitsmitting on: 1 03/18/2024 09:00 AM EST History and Physical Notes * HPI [...]
--- OUTSIDE RECORDS SUMMARY | 2024-10-11 09:56 | XMS_ITS ---
Demographics Address [address] [place] [address] Mobile Email Address Preferred Language en Marital Status Judaism Affiliation Unknown Race White Ethnic Group Not or Lati no Author Organization Crhistiano Lazo III, MD Address [address] [place] [address] [address] [facility] [place] [address] Care Team Providers Care Administrator Health Care Facility Name Role Phone Dr. Christiano Lazo III Primary Care Provider REASON FOR VISIT speak to patient regarding blood in urine Social History Sex Assigned At : Social History Observation Description Sex Assigned At Male Encounters Encounter Location Date Provider Diagnosis Christiano Lazo III, MD [address] [place] [address] [address] [facility] [place] [address] 10/11/2024 Christiano Lazo Plan Of Treatment Next Appt Details Provider Name:Christiano Lazo , 02/21/2025 01:45:00 PM, [address] [place] [address] [place], [address], Progress Notes * Michael SHELLDOB:1960 (64 yo M)Acc No.[id number]:10/11/2024 Patient: Augustine Michael CONKLIN :1960 A ge:64 Y S ex:Male Address:[address] [place] [address], [address] , [place] [address] * true * Date: Generated for Jessica gee/Sanjuanita/eTransmitting on: 03/18/2024 09:01 AM EST
--- OUTSIDE RECORDS SUMMARY | 2024-10-14 05:11 | XMS_ITS ---
Demographics Address [address] [facility] [address] [place] [address] Mobile Email Address Preferred Language en Marital Status Advent Affiliation Unknown Race White Ethnic Group Not or Lati no Author Organization Christiano Lazo III, MD Address [address] [place] [address] [place] [address] Care Team Providers Care Financial Reporting Director Name Role Phone Dr. Christiano Lazo III Primary Care Provider [phone] REASON FOR VISIT told patient to call Social History Sex Assigned At : Social History Observation Description Sex Assigned At Male Encounters Encounter Location Date Provider Diagnosis Christiano Lazo III, MD [address] [place] [address] DR [facility] [place] [address] 10/14/2024 Christiano Lazo Plan Of Treatment Next Appt Details Provider Name:Christiano Lazo , 02/21/2025 01:45:00 PM, [address] [place] [address] [place], [address], Progress Notes * Michael SHELLDOB:1960 (64 yo M)Acc No.[id number]:10/14/2024 Patient: Augustine Michael CONKLIN :1960 A ge:64 Y S ex:Male Address:[address] [place] [address], [address] , [place] [address] * true * Date: Generated for Jessica gee/Sanjuanita/eTjoaquinsmitting on: 03/18/2024 08:59 AM EST
--- OUTSIDE RECORDS SUMMARY | 2024-10-25 08:45 | XMS_ITS ---
Author Organization Christiano Lazo III, MD Address [address] [place] [address] Care Team Providers Care Lot Boss Name Role Phone Dr. Christiano Lazo III [...] Referring Provider Speciality Internal edicine Referred Provider [facility] Referred Provider Specialty Vascular Kaylie ivet General [...] Provider Specialty Pulmonary Gertrude dodge General Notes DVerena 10/28/2024 10:45:03 AM > Faxed referral with progress note., Verena Celaya 11/21/2024 02:22:39 PM > Patient was contacted by [facility] Pul[facility] was left a message to call and schedule an appointment. Patient was contacted by Dr. Lazo office and was provided with the [facility] Pulmonary phone number to contact them to [...] Omeprazole 20 MG TAKE 1 CAPSULE BY [facility] DAILY Oral Active Vitamin K2 40 MCG [...] Date Provider Diagnosis Christiano Lazo III, MD [address] [place] [address] [address], [place] [id number] 10/25/2024 Christiano Lazo Obesity (BMI 30-39.9 ) [...] 10/25/2024 10/25/2024, Evaluate and Treat, [facility] 10/25/2024 10/25/2024, Consult and Treat Snoring Patient needs sleep study Daytime Somnolence, Pulmonology [facility] Next Appt Details Follow Up: 2 Months, Reason: OV Provider Name:Christiano Mendes Violet , 02/21/2025 01:45:00 PM, [address] [place] [address] , [place] [address], [place], [phone], Progress Notes * Michael SHELLDOB:1960 (64 yo M)Acc No.[id number]:10/25/2024 Progress Notes Patient: Michael VELARDE Provider: Chris Lazo MD :1960 A ge:64 Y S ex:Male Date:10/25/2024 Address:[address] [place], [place] [id number] Subjective: * Chief Complaints: * H yperlipidemiaGERDObesityDepressionCervical radiculopathyHypogonadism * HPI: C OVID-19 Screening: Fabiano mendes returns for a scheduled visit for medical management. One month ago he fell down after tripping and pulled a hamstring. This was painful for several weeks but has now resolved. He has a large vein on the lateral aspect of his left knee which worries him. It was a very large varicose vein that was painful. He was referred to endovascular surgery at [facility] for treatment. He has a colonoscopy scheduled in February at [facility]. He feels healthy and well otherwise. His appetite is good and he is trying to lose weight.He is under the care of [facility] urology for hypogonadism. 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 He was born in [facility] near [place]. {'Work Hours':'47.5 hours per week', 'Exercise':'Patient has [...] Date & Time - 09/24/2024 04:26 PM)?ValueReference Range?[id number] - mmol/L?Bilirubin Total0.50.0-1.0 - mg/dL?Aspartate Amino Apowbpovuyb703-23 - U/L?Alanine Qwqezkarzcssdmkr368-75 - U/L?Total Protein7.96.5-8.0 - g/dL?Albumin Level4.63.5-5.0 - g/dL?Alkaline Bsbpkwzuefk6261-185 - U/L?Potassium4.13.3-5.1 - mmol/L?Csucgbht816 96-108 - mmol/L?Carbon Bevgbdr5259-08 - mmol/L?Anion Qlb9611-73 - ?Blood Urea Gdwqjaff072-16 - mg/dL?Creatinine0.880.5-1.4 - mg/dL ?Estimated Glomerular Filt Rate> 60-?Glucose Mjipwx4496-302 - mg/dL?Calcium9.08.4-10.2 - mg/dL * Examination: G [...] TESTOSTRONE INTRAMUSCULARLY EVERY WEEK. Referral To:[facility] Surgery Reason:Evaluate and Treat Referral To:Pulmonology [facility] Pulmonary Diseases Reason:Consult and Treat Snoring [...] MD Date: 0 10/25/2024 Generated for Jessica gee/Sanjuanita/Zairaitting on: 03/18/2024 09:00 AM EST History and Physical [...] Referred Provider Not es 10/25/2024 Christiano Lazo [facility] Evaluate and Treat 10/25/2024 Christiano Lazo [facility], Pulmonology Consult and Treat Snoring Patient needs sleep study Daytime Somnolence
--- OUTSIDE RECORDS SUMMARY | 2024-11-20 06:00 | XMS_ITS ---
Author Organization Christiano Lazo III, MD Address [address] [place] [address] Care Team Providers Care Contract Negotiation Manager Name Role Phone Dr. Christiano Lazo III Primary Care Provider Allergies Allergen (clinical drug ingredient) Drug/Non Drug Allergy documented on EMR Reaction Allergy Type Onset Date Status No Known Drug Allergy Unknown Drug Allergy Active REASON FOR VISIT Acute bronchitis, Hypogonadism, Depression, Obesity, Hyperlipidemia Medications Medication SIG (Take, Route, Frequency, Duration) Notes Start Date End Date Status BD Integra Syringe 23G X 1 3 ML USE WITH TESTOSTERONE ONCE WEEKLY Active Testosterone Cypionate 200 MG/ML INJECT 0.75ML ONCE EVERY WEEK, DISCARD REMAINDER Intramuscular Active Vitamin K2 40 MCG as directed Orally Active Azithromycin 250 MG as directed Orally 2 Tablets on the first day, one tablet the rest of the days for 5 days 11/20/2024 Active Omeprazole 20 MG TAKE 1 CAPSULE BY [facility] DAILY Oral Active BD Syringe/Needle 23G X 1 3 ML USE ONE SYRINGE TO INJECT TESTOSTRONE INTRAMUSCULARLY EVERY WEEK Active Zinc 30 MG 1 capsule Orally Once a day Active Magnesium 250 MG 1 tablet with a meal Orally Once a day Active Calcium 500 MG 1 tablet with meals Orally Twice a day Active Vitamin D3 25 MCG (1000 UT) 1 capsule Orally Once a day Active Social History Tobacco Use: Social History Observation Description Date Details (start date - stop date) Never Smoker NA - NA Sex Assigned At : Social History Observation Description Sex Assigned At Male Tobacco Use/Smoking Question Answer Notes Patient is a nonsmoker Additional Findings: Tobacco Non-User Aggressive non-smoker Vital Signs Height 72 in 11/20/2024 Weight 234 lbs 11/20/2024 BMI 31.73 kg/m2 11/20/2024 Encounters Encounter Location Date Provider Diagnosis Christiano Lazo III, MD [address] [place] [address] [address], [place] [address] 11/20/2024 Christiano Lazo Obesity (BMI 30-39.9 ) E66.9 ; Acute bronchitis due to other specified organisms J20.8 ; Hyperlipidemia E78.5 and GERD without esophagitis K21.9 Assessments Encounter Date Diagnosis (ICD Code) Assessment Notes Treat ment Notes Treatment Clinical Notes 11/20/2024 Obesity (BMI 30-39.9 ) (ICD-10 - E66.9) He has gained 5 pounds. His body mass index is 31.37. We discussed his diet and nutrition. We made a plan for him to lose weight at a rate of one half of a pound per week. 11/20/2024 Acute bronchitis due to other specified organisms (ICD-10 - J20.8) He will use jjoy-bow-aguihfi medication for his symptoms. He was given 5 days of azithromycin and a follow-up appointment. 11/20/2024 Hyperlipidemia (ICD-10 - E78.5) His fasting lipid profile has been ordered prior to his next visit. We reviewed his diet and nutrition today. We made a plan to lose weight. 11/20/2024 GERD without esophagitis (ICD-10 - K21.9) His reflux symptoms are well controlled with jqkt-ppd-vthvubx medication and no change was necessary. Plan Of Treatment Medication Medication Name Sig Start Date Stop Date Notes BD Integra Syringe 23G X 1 3 ML USE WITH TESTOSTERONE ONCE WEEKLY Testosterone Cypionate 200 MG/ML INJECT 0.75ML ONCE EVERY WEEK, DISCARD REMAINDER Intramuscular Vitamin K2 40 MCG as directed Orally Azithromycin 250 MG as directed Orally 2 Tablets on the first day, one tablet the rest of the days for 5 days 11/20/2024 Omeprazole 20 MG TAKE 1 CAPSULE BY [facility] DAILY Oral BD Syringe/Needle 23G X 1 3 ML USE ONE SYRINGE TO INJECT TESTOSTRONE INTRAMUSCULARLY EVERY WEEK Zinc 30 MG 1 capsule Orally Once a day Magnesium 250 MG 1 tablet with a meal Orally Once a day Calcium 500 MG 1 tablet with meals Orally Twice a day Vitamin D3 25 MCG (1000 UT) 1 capsule Orally Once a day Next Appt Details Follow Up: As Scheduled, Chrissie son: OV Provider Name:Christiano Lazo , 02/21/2025 01:45:00 PM, [address] [place] [address] [address], [place], [address], Progress Notes * Michael SHELLDOB:1960 (64 yo M)Acc No.[id number]:11/20/2024 Patient: Michael VELARDE Provider: Chris Lazo MD :1960 A ge:64 Y S ex:Male Date:11/20/2024 Address:[address] [place] [address], [facility] , [id number] Subjective: * Chief Complaints: * A cute bronchitisHypogonadismDepressionObesityHyperlipidemia * HPI: * : This telehealth visit took place over 15 minutes with the patient at home and me in my office. He gave consent for billing. He reports that for several days he had a headache cold manifest by ear pressure and congestion and rhinorrhea but now has developed a cough productive of copious amounts of green sputum. We have discussed over the counter agents for treating his symptoms that contained dextromethorphan and antihistamines. I have given him a prescription for azithromycin. It seems likely this has developed into bacterial bronchitis.He denies fever and chills but complains of malaise. Telehealth L ocation of provider rendering services: { ...} [address] [facility] [address] L ocation of patient: radha stevensess listed in demographics for today's visit P atient identification confirmed using: FELIPA Gregory ame T elehealth method: T elephone only. Patient not visible to care provider. C onsent: P atient verbally consented to treatment, Patient verbally consented to billing insurance company, Patient informed of any privacy concerns related to method of visit T otal time spent with patient (mins) 1 5 * ROS: G eneral/Constitutional: pain o nly normal aches and pains. C hills d enies.?Fatigue a dmits. F ever d enies. E NT: Decreased hearing i n both ears. R espiratory: Cough d enies. C ardiovascular: Chest pain with exertion d enies. D yspnea on exertion?denies. S hortness of breath w ith exertion. G astrointestinal: Constipation o ccasional. D ecreased [...] enies. S ciatica d enies. W eakness t hat is generalized. S kin: Itching d enies. 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 He was born in [place] near [place]. {'Work Hours':'47.5 hours per week', 'Exercise':'Patient has [...] SYRINGE TO INJECT TESTOSTRONE INTRAMUSCULARLY EVERY WEEK Omeprazole 20 MG Capsule Delayed Release TAKE 1 CAPSULE BY MOUTH DAILY Oral Medication List reviewed and reconciled with the [...] SYRINGE TO INJECT TESTOSTRONE INTRAMUSCULARLY EVERY WEEK Taking Omeprazole 20 MG Capsule Delayed Release TAKE 1 CAPSULE BY MOUTH DAILY Oral Medication List reviewed and reconciled with the patient * Allergies: N o Known Drug Allergyno[Allergies Verified] Objective: * Vitals: H t: 72, Wt: 234, BMI:31.73, Wt-k.14. * P ast Orders: Lab:Complete Blood [...] Date & Time - 09/24/2024 04:26 PM)?ValueReference Range?Flyprm559824-771 - mmol/L?Bilirubin Total0.50.0-1.0 - mg/dL?Aspartate Amino Karfwvixhxh492-40 - U/L?Alanine Scarbaczunaxhkdn097-13 - U/L?Total Protein7.96.5-8.0 - g/dL?Albumin Level4.63.5-5.0 - g/dL?Alkaline Aprdmljrxbs6662-718 - U/L?Potassium4.13.3-5.1 - mmol/L?Tbbmcrwa323 96-108 - mmol/L?Carbon Ilvjhoq1267-78 - mmol/L?Anion Nip9965-56 - ?Blood Urea Avuvtdkd329-20 - mg/dL?Creatinine0.880.5-1.4 - mg/dL ?Estimated Glomerular Filt Rate> 60-?Glucose Cqndsl0868-432 - mg/dL?Calcium9.08.4-10.2 - mg/dL Assessment: * Assessment: 1. A cute bronchitis due to other specified organisms - J20.8 (Primary) N otes :He will use hswb-kum-kopqmuu medication for his symptoms. He was given 5 days of azithromycin and a follow-up appointment. 2 . O jeff (BMI 30-39.9) - E66.9 N otes :He has gained 5 pounds. His body mass index is 31.37. We discussed his diet and nutrition. We made a plan for him to lose weight at a rate of one half of a pound per week. 3 . H yperlipidemia - E78.5 N otes :His fasting lipid profile has been ordered prior to his next visit. We reviewed his diet and nutrition today. We made a plan to lose weight. 4 . G ERD without esophagitis - K21.9 N otes :His reflux symptoms are well controlled with bhlg-zsg-dxabzzo medication and no change was necessary. Plan: * Treatment: 2. O jeff (BMI 30-39.9) Continue Omeprazole Capsule Delayed Release, 20 MG, TAKE 1 CAPSULE BY MOUTH DAILY, Oral; S tart Azithromycin Tablet, 250 MG, as directed, Orally, 2 Tablets on the first day, one tablet the rest of the days, 5 days, 6, Refills 0. 3. O thers Continue Vitamin D3 Capsule, [...] 1 3 ML, USE WITH TESTOSTERONE ONCE WEEKLY. * Procedure Codes: 9 8012 SYNCH AUDIO-ONLY EST SF 10 * Preventive Medicine: Counseling: C are goal [...] Other reason not done * Follow Up: A s Scheduled (Reason: OV) * Images: * Sign off status: Completed true * Provider: Chris Lazo MD Date: 0 11/20/2024 Generated for Jessica gee/Sanjuanita/eTransmitting on: 1 03/18/2024 08:59 AM EST History and Physical Notes * HPI (History of Present Illness) Category Sub-Category Detail Notes Telehealth Location of [facility] rendering services:: {...} [address] [place] [address] [place] [address] Location of patient:: address listed in demographics for today's visit Patient identification confirmed using:: Name, Telehealth method:: Telephone only. Kimberly ent not visible to care provider. Consent:: Patient verbally c onsented to treatment, Patient verbally consented to billing insurance company, Patient informed of any privacy concerns related to method of visit Total time spent with patient (mins): 15
--- OUTSIDE RECORDS SUMMARY | 2024-12-20 09:00 | XMS_ITS ---
Author Organization Christiano Lazo III, MD Address [address] [place] [address] Care Team Providers Care Belt Turner Name Role Phone Dr. Christiano Lazo III [...] Problem Status W/U Status Risk Notes Problem [id number] Overweight (E66.3) Active confirmed He has gained back 4 pounds in his body mass index is 29. We reviewed his diet and nutrition. We [...] Date Provider Diagnosis Christiano Lazo III, MD [address] [place] [address] [place] [address] 12/20/2024 Christiano Lazo Encounter for immunization Z23 [...] Weeks, Reason: Telehealth Provider Name:Christiano Lazo , 02/21/2025 01:45:00 PM, [address] [place] [address] [address] [place], [address], Progress Notes * Michael SHELLDOB:1960 (64 yo M)Acc No.[id number]:12/20/2024 Progress Notes Patient: Michael VELARDE Provider: Chris Lazo MD :1960 A ge:64 Y S ex:Male Date:12/20/2024 Address:[address] [place] [address] [id number] Subjective: * Chief Complaints: * G ERDObesityUmbilical [...] A ggressive non-smoker 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 He was born in [place] near [place]. {'Work Hours':'47.5 hours per week', 'Exercise':'Patient has [...] Date & Time - 09/24/2024 04:26 PM)?ValueReference Range?Lhipvg037605-163 - mmol/L?Bilirubin Total0.50.0-1.0 - mg/dL?Aspartate Amino Fbsfqfnfbez426-11 - U/L?Alanine Zoorkgjitaywhbcj343-70 - U/L?Total Protein7.96.5-8.0 - g/dL?Albumin Level4.63.5-5.0 - g/dL?Alkaline Elwhjzrotcw1796-432 - U/L?Potassium4.13.3-5.1 - mmol/L?Tcbuctyn098 96-108 - mmol/L?Carbon Tarmmjk1087-41 - mmol/L?Anion Orp2037-83 - ?Blood Urea Ulxjbfas150-42 - mg/dL?Creatinine0.880.5-1.4 - mg/dL ?Estimated Glomerular Filt Rate> 60-?Glucose Tpcpzq9137-814 - mg/dL?Calcium9.08.4-10.2 - mg/dL * Examination: G [...] 0674 CCIIV4 VAC NO PRSV 0.5 ML [id number] FLU VACC 4 ELLI 3 YRS PLUS [...] Chris Lazo MD Date: Generated for Jessica gee/Sanjuanita/Zairaitting on: 03/18/2024 09:00 [...]
--- OUTSIDE RECORDS SUMMARY | 2024-12-27 12:00 | XMS_ITS ---
Author Organization Christiano Lazo III, MD Address [address] [place] [address] [address] [place] [address] Care Team Providers Care Supervisor Machine Setter Name Role Phone Dr. Christiano Lazo III Primary Care Provider [phone] REASON FOR VISIT Follow up Social History Sex Assigned At : Social History Observation Description Sex Assigned At Male Encounters Encounter Location Date Provider Diagnosis Christiano Lazo III, MD [address] [place] [address] [address] [facility] [facility] [place] [address] 12/27/2024 Christiano Lazo Plan Of Treatment Next Appt Details Provider Name:Christiano Lazo , 02/21/2025 01:45:00 PM, [address] [place] [address] [address], [place], [address], Progress Notes * Michael SHELLDOB:1960 (64 yo M)Acc No.[id number]:12/27/2024 Progress Notes Patient: Michael VELARDE Provider: Chris Lazo MD :1960 A ge:64 Y S ex:Male Date:12/27/2024 Address:[address] [place] [address] , [place] [id number] Subjective: * Chief Complaints: * 1 . Follow up. * Medical History: Objective: * Vitals: Assessment: Plan: * Treatment: * Images: * The named appointment provid er may or may not be the originator of this progress note, and it is not deemed complete until electronically signed by the appointment provider. Sign off status: Pending * Provider: Chris Lazo MD Date: 1 Generated for Jessica gee/Sanjuanita/Zakia on: 03/18/2024 09:00 AM EST
--- OUTSIDE RECORDS SUMMARY | 2025-01-10 10:15 | XMS_ITS ---
Author Organization Christiano Lazo III, MD Address [address] [place] [address] Care Team Providers Care Services Advisor Name Role Phone Dr. Christiano Lazo III Primary Care Provider [phone] Allergies Allergen (clinical drug ingredient) Drug/Non Drug [...] non-smoker Vital Signs Temperature 98.4 degrees Fahrenheit 11/07/20 25 Blood pressure systolic 124 mm Hg 01/11/20 25 Blood pressure diastolic 76 mm Hg 025 Heart Rate 71 /min 01/10/2025 Height 72 in 01/10/2025 Weight 214 lbs 01/10/2025 BMI 29.02 kg/m2 01/10/2025 Encounters Encounter Location Date Provider Diagnosis Christiano Lazo III, MD [address] [place] [address] [place] [address] 01/10/2025 Christiano Lazo Hyperlipidemia E78.5 ; Major [...] His reflux symptoms are well controlled with shel-yju-ymjruic medication and no change was necessary. 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 He was born in [facility] near [place]. {'Work Hours':'47.5 hours per week', 'Exercise':'Patient has [...] :His reflux symptoms are well controlled with mpqg-soz-vzghuey medication and no change was necessary. 7 [...] Chris Lazo MD Date: 03/12/2024 Generated for Jessica gee/Sanjuanita/eTjoaquinsmitting on: 03/18/2024 09:01 AM EST History and Physical Notes * [...]
--- NOTE | ~2025-01-16 | FL_ITS ---
EXAMINATION: XR BARIUM SWALLOW CLINICAL INFORMATION: Gastroesophageal reflux without esophagitis COMPARISON: None available. TECHNIQUE: Patient was administered thin and thick barium and effervescent granules. Barium tablet was also administered. FINDINGS: There is trace laryngeal penetration seen with thin liquid barium. No aspiration. Esophageal motility is normal. There is moderate gastroesophageal reflux. No hernia, mass or stricture is seen. No evidence of esophagitis is appreciated. Barium tablet passed into the stomach. The visualized stomach is unremarkable. FLUOROSCOPY TIME: 1.13 minutes DOSE AREA PRODUCT: 1009 uGy-m2 (microgray-meter squared) FL/FL barium swallow with air IMPRESSION: Moderate gastroesophageal reflux. Trace laryngeal penetration. No aspiration. Electronically signed by: Dennise Thompson MD 01/16/2025 10:11 AM LINDA
--- OUTSIDE RECORDS SUMMARY | 2025-01-16 09:00 | XMS_ITS | Patient Health Record ---
Author Organization Christiano Laoz III, MD Address [address] [place] [address] Care Team Providers Care Practice Clinician Name Role Phone Dr. Christiano Lazo III [...] ff Reviewed date:10/05/2024 07:16:05 PM Interpretation: Performing Lab:[facility], [address] [place] [id number] Notes/Report: White Blood Count 8.7 4.8-10.8 X10*3/uL [...] Panel Reviewed date:10/05/2024 07:16:05 PM Interpretation: Performing Lab:[facility], [address] [place] [id number] Notes/Report: Sodium 139 135-145 mmol/L Potassium 4.1 [...] 60 39-117 U/L Reason For Referral Reason Evaluate and Treat [...] Referring Provider Last Name Violet Referring Provider [facility] edicine Referred Provider Shay Joseph Referred Provider Specialty Urology General Notes D, 02/19/2024 03:42:39 PM > faxed referral and progress note Referral Priority Routine Referral Appointment Date 03/15/2024 Reason Evaluate and Treat Diagnosis 1 Back pain (M54.9) Referral Organization Christiano Lazo III, MD Referring Provider First Name Christiano Referring Provider Last Name Violet [facility]erred Provider GUALBERTO CHEN Referred [...] Referring Provider Speciality Internal edicine Referred Provider [facility] Referred Provider Specialty Vascular Kaylie ivet General Notes 10/28/2024 10:47:02 AM > referral faxed with progress note, Yomi11/20/2024 02:36:26 PM > Patient was called to [...] Referring Provider Speciality Internal edicine Referred Provider [facility] er, Pulmonology Referred Provider Specialty Pulmonary Gertrude dodge General Notes 10/28/2024 10:45:03 AM > Faxed referral with progress note., 11/21/2024 02:22:39 PM > Patient was contacted by [facility] was left a message to call and schedule an appointment. Patient was contacted by Dr. Lazo office and was provided with the [facility] phone number to contact them to schedule an appointment. Referral Priority Routine Referral Appointment Date 12/30/2024 Medications Medication SIG (Take, Route, Frequency, Duration) Notes Start Date End Date Status Vitamin K2 40 MCG as directed Orally Active Testosterone Cypionate 200 MG/ML INJECT 0.75ML ONCE EVERY WEEK, DISCARD REMAINDER Intramuscular Active Magnesium 250 MG 1 tablet with a meal Orally Once a day Active Zinc 30 MG 1 capsule Orally Once a day Active BD Integra Syringe 23G X 1 3 ML USE WITH TESTOSTERONE ONCE WEEKLY Active Omeprazole 20 MG TAKE 1 CAPSULE BY [facility] DAILY Oral Active BD Syringe/Needle 23G X 1 3 ML USE ONE SYRINGE TO INJECT TESTOSTRONE INTRAMUSCULARLY EVERY WEEK Active Vitamin D3 25 MCG (1000 UT) [...] Problem Status W/U Status Risk Notes Problem 09986882 Hyperlipidemia (E78.5) Active confirmed No change in his regimen was made. I strongly recommended aggressive weight loss and diet low in animal fat. Comprehensive blood work with a fasting lipid profile was ordered. Problem 861801040 Overweight (E66.3) Active confirmed He has gained back 4 pounds in his body mass index is 29. We reviewed his diet and nutrition. We reviewed his weight loss strategy at length today. Problem Major depression, single episode (35572860) Major depressive disorder, single episode, unspecified (F32.9) Active confirmed His depression is in remission. He has been compliant with his treatments. Observation was continued. Problem 089820310 GERD without esophagitis (K21.9) Active confirmed His reflux symptoms are well controlled with boww-sdc-illgd er medication and no change was necessary. Problem Cervical radiculopathy (73011063) Cervical radiculopathy (M54.12) Active confirmed The pain in the shoulder is not reproduced by manipulation of the neck at this time. His neck is pain-free currently. Problem 102409876 Umbilical hernia (K42.9) Active confirmed A small umbilical hernia is present but is causing no symptoms or will be observed without treatment. Problem 927664117 Condyloma acuminata (A63.0) Active confirmed No new lesions were seen today. Problem 530935141 ED (erectile dysfunction) (N52.9) Active confirmed This problem has been resolved with use of medication. Problem 50420555 Hypogonadism in male (E29.1) Active confirmed He says he is receiving injections of testosterone given by the urologist. This was continued. Vital Signs Heart Rate 71 /min 01/10/2025 Temperature 98.4 degrees Fahrenheit 01/10/2025 Blood pressure diastolic 76 mm Hg 01/10/2025 Height 72 in 01/10/2025 Blood pressure systolic 124 mm Hg 01/10/2025 Weight 214 lbs 01/10/2025 BMI 29.02 kg/m2 01/10/2025 Encounters Encounter Location Date Provider Diagnosis Christiano Lazo III, MD [address] [place] [address] [place] [address] 02/16/2024 Christiano Lazo ED (erectile dysfunction) N52.9 ; Obesity (BMI 30-39.9) E66.9 ; Hyperlipidemia E78.5 ; Pyuria R82.81 ; Condyloma acuminata A63.0 ; Reflux esophagitis K21.0 ; Cervical radiculopathy M54.12 and Major depressive disorder, single episode, unspecified F32.9 Christiano Lazo III, MD [address] [place] [address] [place] [address] 06/14/2024 Christiano Lazo Hypogonadism in male E29.1 ; Major depressive disorder, single episode, unspecified F32.9 ; Cervical radiculopathy M54.12 ; Obesity (BMI 30-39.9) E66.9 ; GERD without esophagitis K21.9 ; Hyperlipidemia E78.5 and Umbilical hernia K42.9 Christiano Lazo III, MD [address] [place] [address] [place] [id number] 10/25/2024 Christiano Lazo Obesity (BMI 30-39.9 ) E66.9 ; Umbilical hernia K42.9 ; Hyperlipidemia E78.5 ; ED (erectile dysfunction) N52.9 ; Condyloma acuminata A63.0 ; Major depressive disorder, single episode, unspecified F32.9 ; Cervical radiculopathy M54.12 and Hypogonadism in male E29.1 Christiano Lazo III, MD [address] [place] [address] [place] [phone] 11/20/2024 Christiano Lazo Obesity (BMI 30-39.9 ) E66.9 ; Acute bronchitis due to other specified organisms J20.8 ; Hyperlipidemia E78.5 and GERD without esophagitis K21.9 Christiano Lazo III, MD [address] [place] [address] [place] [id number] 12/20/2024 Christiano Lazo Encounter for immunization Z23 ; Shoulder impingement M25.819 ; Overweight E66.3 ; Hyperlipidemia E78.5 ; Hypogonadism in male E29.1 and Cervical radiculopathy M54.12 Christiano Lazo III, MD [address] [place] [address] [place] [phone] 01/10/2025 Christiano Lazo Hyperlipidemia E78.5 ; Major depressive disorder, single episode, unspecified F32.9 ; ED (erectile dysfunction) N52.9 ; Overweight E66.3 ; Umbilical hernia K42.9 ; GERD without esophagitis K21.9 and Hypogonadism in male E29.1 Christiano Lazo III, MD [address] [place] [address] [place] [id number] 02/19/2024 Christiano Lazo Hematuria, unspecifi ed type R31.9 Christiano Lazo III, MD [address] [place] [address] [place] [id number] 02/21/2024 Christiano Lazo III, MD [address] [place] [address] [place] [phone] 10/11/2024 Christiano Lazo III, MD [address] [place] [address] [place] [phone] 10/14/2024 Christiano Lazo Assessments Encounter Date Diagnosis (ICD Code) Assessment Notes Treat ment Notes Treatment Clinical Notes 02/16/2024 Obesity (BMI 30-39.9 ) (ICD-10 - [...] organisms (ICD-10 - J20.8) He will use somv-nsq-xyjrsvy medication for his symptoms. He was given [...] be done and he will see orthopedics. 01/10/2025 Hyperlipidemia (ICD-10 - E78.5) No change in his regimen was made. I strongly recommended aggressive weight loss and diet low in animal fat. Comprehensive blood work with a fasting lipid profile was ordered. 01/10/2025 Major depressive disorder, single episode, unspecified (ICD-10 - F32.9) His depression is in remission. He has been compliant with his treatments. Observation was continued. 02/19/2024 Hematuria, unspecified type (ICD-10 - R31.9) 02/16/2024 Hyperlipidemia (ICD-10 - E78.5) His fasting [...] diet restricted in fat calories and sodium. 01/10/2025 ED (erectile dysfunction) (ICD-10 - N52.9) This problem has been resolved with use of medication. 02/16/2024 Pyuria (ICD-10 - R82.81) His urine [...] His reflux symptoms are well controlled with ugkz-rki-gofkjzc medication and no change was necessary. 12/20/2024 Hyperlipidemia (ICD-10 - E78.5) His fasting lipid profile has been ordered prior to his next visit. We reviewed his diet and nutrition today. We made a plan to lose weight. 01/10/2025 Overweight (ICD-10 - E66.3) He has gained back 4 pounds in his body mass index is 29. We reviewed his diet and nutrition. We reviewed his weight loss strategy at length today. 02/16/2024 Condyloma acuminata (ICD-10 - A63.0) No new lesions were seen today. 06/14/2024 GERD without esophagitis (ICD-10 - K21.9) His reflux symptoms are well controlled with pzaw-skb-wyrwaog medication and no change was necessary. 10/25/2024 Condyloma acuminata (ICD-10 - A63.0) No new lesions were seen today. 12/20/2024 Hypogonadism in male (ICD-10 - E29.1) He says he is receiving injections of testosterone given by the urologist. This was continued. 01/10/2025 Umbilical hernia (ICD-10 - K42.9) A small umbilical hernia is present but is causing no symptoms or will be observed without treatment. 02/16/2024 Reflux esophagitis (ICD-10 - K21.0) He [...] this time. His neck is pain-free currently. 01/10/2025 GERD without esophagitis (ICD-10 - K21.9) His reflux symptoms are well controlled with kzof-kvm-mpqvbyp medication and no change was necessary. 02/16/2024 Cervical radiculopathy (ICD-10 - M54.12) I [...] continue with heat and rest and ibuprofen. 01/10/2025 Hypogonadism in male (ICD-10 - E29.1) He says he is receiving injections of testosterone given by the urologist. This was continued. 02/16/2024 Major depressive disorder, single episode, unspecified [...] C) 02/07/2023 PROFILE, FASTING (COMPREHENSIVE METABOLI C) 01/10/2025 PROFILE, FASTING (COMPREHENSIVE METABOLI C) 08/30/2019 PROFILE, [...] TSH (THYROID STIMULATING HORMONE) 2019 PSA, TOTAL 01/10/2025 PSA, TOTAL 02/01/2022 PSA, TOTAL 07/23/2021 PSA, TOTAL 11/17/2023 PSA, TOTAL 07/27/2020 PSA, TOTAL SCREEN 11/17/2021 CBC w DIFF 05/22/2018 CBC w DIFF 07/23/2021 CBC w DIFF 07/27/2020 CBC w DIFF 01/04/2017 CBC w DIFF 11/17/2021 CBC w DIFF 09/11/2017 CBC w DIFF 10/02/2019 CBC w DIFF 06/14/2024 CBC w DIFF 01/10/2025 CBC w DIFF 06/06/2016 CBC w DIFF [...] 08/13/2021 Lipid Panel 02/07/2023 Lipid Panel 06/14/2024 Lipid Panel 01/10/2025 Vitamin D 25-OH Total 11/17/2023 Vitamin D 25-OH Total 06/14/2024 Vitamin D 25-OH Total 01/10/2025 Testosterone, Total 06/14/2024 Cortisol 07/23/2021 Urine Culture 02/16/2024 Next Appt Details Provider Name:Christiano Vaughn Violet , 02/21/2025 01:45:00 PM, [address] [place] [address] [address], [place], [phone], Insurance Providers Payer Name Payer Address Payer Phone Subscriber Number Group Number Insured Name Patient Relationship to Insured Coverage Start Date Coverage End Date [employer] [address] [place] [id number] Michael Menezes Self - patient is the [...]
--- OUTSIDE RECORDS SUMMARY | 2025-01-16 09:00 | XMS_ITS | Clinical Summary ---
Author Organization [address] Address [address] [place] [address] Phone Care Team Providers Care Broke Man Name Role Phone Christiano Lazo MD Primary Care Provider [phone] Social History Tobacco Use Types Packs/Day Years [...] Health Screening 05/08/2024 COVID-19 Vaccine (1 - 2024-2 6 season) 2024 Influenza Vaccine (#1) 2024 RSV [...] patient's age to complete this topic Insurance [facility] [place] [id number] [facility] Care Teams Broke Man Relationship Specialty Start Date End Date Christiano Lazo MD [address] [facility] [address] [place] [address] PCP - General Oncology 05/07/24
--- OUTSIDE RECORDS SUMMARY | 2025-01-16 09:01 | XMS_ITS | Encounter Summary ---
Author Organization [facility] [place] [address] Care Team Providers Care Software Engineer Mobile Name Role Phone Christiano Lazo MD Primary Care Provider [phone] Encounter Details Date Type Department Care Team (Late st Contact Info) Description 05/07/2024 Lab Requisition [facility] - Main Lab [address] [place] [address] Rashel Cadena MD [address] [address] Testicular hypofunction Social History Tobacco Use Types [...] AM EST) WBC 5.9 4.8 - 10.8 K/[facility] LAB HEMETOLOGY METHOD 05/07/2024 2:22 PM EST [facility] RBC 4.70 4.50 - 5.50 M/[facility] LAB HEMETOLOGY METHOD 05/07/2024 2:22 PM EST [facility] Hemoglobin 14.7 13.5 - 17.5 g/dL LAB HEMETOLOGY METHOD 05/07/2024 2:22 PM [facility] Hematocrit 42.8 42.0 - 54.0 % LAB HEMETOLOGY METHOD 05/07/2024 2:22 PM [facility] MCV 91.3 79.0 - 98.0 FL LAB HEMETOLOGY METHOD 05/07/2024 2:22 PM EST [facility] MCH 31.3 27.0 - 32.0 pcg LAB HEMETOLOGY METHOD 05/07/2024 2:22 PM [facility] MCHC 34.3 32.0 - 37.0 g/dL LAB HEMETOLOGY METHOD 05/07/2024 2:22 PM [facility] RDW 12.6 11.0 - 15.0 % LAB HEMETOLOGY METHOD 05/07/2024 2:22 PM [facility] Platelets 228 130 - 400 K/mcL LAB HEMETOLOGY METHOD 05/07/2024 2:22 PM [facility] MPV 9.6 7.0 - 11.0 FL LAB HEMETOLOGY METHOD 05/07/2024 2:22 PM [facility] NRBC 0.0 <1.0 % LAB HEMETOLOGY METHOD 05/07/2024 2:22 PM [facility] NRBC Absolute 0.00 <0.10 K/mcL LAB HEMETOLOGY METHOD 05/07/2024 2:22 PM [facility] Blood Venous blood specimen / Unknown 05/07/2024 9:54 AM EST 05/07/2024 2:08 PM EST us Rashel Cadena MD LAB BLOOD ORDERABLES Final Result [facility] [address] [place], [place] [address] [[email or web address] [phone] documented in this encounter Visit Diagnoses Diagnosis Testicular hypofunction Other testicular hypofunction documented in this encounter Care Teams Software Engineer Mobile Relationship Specialty Start Date End Date Christiano Lazo MD [address] [address] PCP - General Oncology 05/07/24 documented as of this encounter
== END 2025-01-16 08:41 | disposition home or self-care (01) ==
LOC: HO.XRAY 08:40
PROVIDERS: PCP Internal Medicine Medical Oncology; Visit Provider Nurse Practitioner
DX: K21.9 Gastro-esophageal reflux disease without esophagitis (principal)
CPT/HCPCS: 74221

== ENCOUNTER → 2025-01-16 08:41 | Outpatient (BNV) | payer OTHER, SELFPAY | PROVIDERS: PCP Internal Medicine Medical Oncology; Visit Provider Radiology Diagnostic Radiology | DX: K21.9 Gastro-esophageal reflux disease without esophagitis (principal) | CPT/HCPCS: 74221 ==

== ENCOUNTER → 2025-03-04 14:51 | Outpatient (REF) | payer OTHER, SELFPAY ==
--- OUTSIDE RECORDS SUMMARY | 2024-02-21 09:07 | XMS_ITS ---
Demographics Address [address] [facility] [place] [address] Mobile Email Address Preferred Language en Marital Status unmarried Worship Affiliation Unknown Race White Ethnic Group Not or Lati no Author Organization Christiano Lazo III, MD Address [address] [facility] [place] [address] Care Team Providers Care Chemist Proteins Name Role Phone Dr. Christiano Lazo III Primary Care Provider REASON FOR VISIT Message Social History Sex Assigned At : Social History Observation Description Sex Assigned At Male Encounters Encounter Location Date Provider Diagnosis Christiano Lazo III, MD [address] [place] [address] [place] [address] 02/21/2024 Christiano Lazo Plan Of Treatment Next Appt Details Provider Name:Christiano Lazo , 03/14/2025 03:15:00 PM, [address] [place] [address] [place], [address], Provider Name:Christiano Lazo , 02/24/2026 03:00:00 PM, [address] [place] [address] [place], [address], Progress Notes * Michael SHELLDOB:1960 (63 yo M)Acc No.[id number]:02/21/2024 Patient: Michael VELARDE :1960 A ge:63 Y S ex:Male Address:[address] [place] [address] [address] , [place] [address] * true * Date: Generated for Printi ng/Faxing/eTransmitting on: 06:27 PM EST
--- OUTSIDE RECORDS SUMMARY | 2024-06-14 08:30 | XMS_ITS ---
Author Organization Christiano Lazo III, MD Address [address] [facility] [place] [address] Care Team Providers Care Pot Fluxer Name Role Phone Dr. Christiano Lazo III Primary Care Provider Allergies Allergen (clinical drug ingredient) Drug/Non Drug Allergy documented on EMR Reaction Allergy Type Onset Date Status No Known Drug Allergy Unknown Drug Allergy Active REASON FOR VISIT On mental cough area, Condylomata, GERD, Obesity, Depression, Hyperlipidemia, Cervical radiculopathy Medications Medication SIG (Take, Route, Frequency, Duration) Notes Start Date End Date Status Calcium 500 MG 1 tablet with meals Orally Twice a day Active Magnesium 250 MG 1 tablet with a meal Orally Once a day Active Zinc 30 MG 1 capsule Orally Once a day Active Vitamin K2 40 MCG as directed Orally Active Vitamin D3 25 MCG (1000 UT) 1 capsule Orally Once a day Active Testosterone Cypionate 200 MG/ML INJECT 0.75ML ONCE EVERY WEEK, DISCARD REMAINDER Intramuscular Active BD Syringe/Needle 23G X 1 3 ML USE ONE SYRINGE TO INJECT TESTOSTRONE INTRAMUSCULARLY EVERY WEEK Active BD Integra Syringe 23G X 1 3 ML USE WITH TESTOSTERONE ONCE WEEKLY Active Social History Tobacco Use: Social History [...] Problem Status W/U Status Risk Notes Problem [id number] Hypogonadism in male (E29.1) Active confirmed He is administering and injections of testosterone once a week. He says this makes a notable improvement and his function has returned to normal. Vital Signs Temperature 98.6 degrees Fahrenheit 06/15/19 25 Blood pressure systolic 140 mm Hg 06/15/19 25 Blood pressure diastolic 76 mm Hg 025 Heart Rate 73 /min 06/14/2024 Height 72 in 06/14/2024 Weight 233 lbs 06/14/2024 BMI 31.6 kg/m2 06/14/2024 Encounters Encounter Location Date Provider Diagnosis Christiano Lazo III, MD [address] [place] [address] [place] [address] 06/14/2024 Christiano Lazo Hypogonadism in male E29.1 ; Major depressive disorder, single episode, unspecified F32.9 ; Cervical radiculopathy M54.12 ; Obesity (BMI 30-39.9) E66.9 ; GERD without esophagitis K21.9 ; Hyperlipidemia E78.5 and Umbilical hernia K42.9 Assessments Encounter Date Diagnosis (ICD Code) Assessment Notes Treat ment Notes Treatment Clinical Notes 06/14/2024 Hypogonadism in male (ICD-10 - E29.1) He says he is receiving injections of testosterone given by the urologist. This was continued. 06/14/2024 Major depressive disorder, single episode, unspecified (ICD-10 - F32.9) He is worried about hhis financial situation but his depression is mild. He said he does not require medication at this time. He will be followed regularly. 06/14/2024 Cervical radiculopathy (ICD-10 - M54.12) I think it is more likely the pathology is in the cervical spine and in the shoulder joints. An MRI of the neck will be ordered. If necessary he will see orrthopedics. X-rays will bbe obtained as needed. We will continue with heat and rest and ibuprofen. 06/14/2024 Obesity (BMI 30-39.9 ) (ICD-10 - E66.9) He has gained 5 pounds. His body mass index is 31.6. We discussed his diet and nutrition. We made a plan for him to lose weight at a rate of one half of a pound per week. 06/14/2024 GERD without esophagitis (ICD-10 - K21.9) His reflux symptoms are well controlled with sfnd-wiq-ofkxmdu medication and no change was necessary. 06/14/2024 Hyperlipidemia (ICD-10 - E78.5) His fasting lipid profile has been ordered prior to his next visit. We reviewed his diet and nutrition today. We made a plan to lose weight. 06/14/2024 Umbilical hernia (ICD-10 - K42.9) A small umbilical hernia is present but is causing no symptoms or will be observed without treatment. Plan Of Treatment Medication Medication Name Sig Start Date Stop Date Notes Calcium 500 MG 1 tablet with meals Orally Twice a day Magnesium 250 MG 1 tablet with a meal Orally Once a day Zinc 30 MG 1 capsule Orally Once a day Vitamin K2 40 MCG as directed Orally Vitamin D3 25 MCG (1000 UT) 1 capsule Orally Once a day Testosterone Cypionate 200 MG/ML INJECT 0.75ML ONCE EVERY WEEK, DISCARD REMAINDER Intramuscular BD Syringe/Needle 23G X 1 3 ML USE ONE SYRINGE TO INJECT TESTOSTRONE INTRAMUSCULARLY EVERY WEEK BD Integra Syringe 23G X 1 3 ML USE WITH TESTOSTERONE ONCE WEEKLY Pending Test Test Name Order Date PROFILE, FASTING (COMPREHENSIVE METABOLI C) 06/14/2024 CBC w DIFF 06/14/2024 Lipid Panel 06/14/2024 Vitamin D 25-OH Total 06/14/2024 Testosterone, Total 06/14/2024 Next Appt Details Follow Up: 4 Months, Reason: OV Provider Name:Christiano Lazo , 03/14/2025 03:15:00 PM, [address] [place] [address] [address], [place], [address], Provider Name:Christiano Lazo , 02/24/2026 03:00:00 PM, [address] [place] [address] [address], [place], [address], Progress Notes * Michael SHELLDOB:1960 (63 yo M)Acc No.[id number]:06/14/2024 Progress Notes Patient: Michael VELARDE Provider: Chris Lazo MD :1960 A ge:63 Y S ex:Male Date:06/14/2024 Address:[address] [place] [address] [id number] Subjective: * Chief Complaints: * O n mental cough areaCondylomataGERDObesityDepressionHyperlipidemiaCervical radiculopathy * HPI: C OVID-19 Screening: Fabiano urbano returns to the office for management of numerous problems. His neck has been painful lately and he has been seeing the chiropractor which she says helps. He has begun on testosterone injections for hypogonadism with an improvement in his well being. He has not had any of the esophageal reflux while receiving the testosterone injections.Blood work that was done June 07, 2024 showed white count 6.1 hematocrit 43.4 platelets 239 white count 9.7 BUN 13 creatinine 0.91 testosterone level DCLXXXI. His lowest testosterone level was 220. Questions H ave you had any new onset fever, chills, cough, congestion, sore throat, shortness of breath, muscle aches? N o * ROS: G eneral/Constitutional: pain C ervical spine with range of motion, otherwise only normal aches and pains. C hills d enies. F atigue a dmits. F ever d enies.? E NT: Decreased hearing d enies. R [...] pain d enies. P sychiatric: Depressed mood w hich is mild. 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 He was born in [facility] near [place]. {'Work Hours':'47.5 hours per week', 'Exercise':'Patient has [...] K2 40 MCG Tablet as directed Orally Testosterone Cypionate 200 MG/ML Solution INJECT 0.75ML ONCE EVERY WEEK, DISCARD REMAINDER Intramuscular BD Integra Syringe 23G X 1 3 ML Miscellaneous USE WITH TESTOSTERONE ONCE WEEKLY BD Syringe/Needle 23G X 1 3 ML Miscellaneous USE ONE SYRINGE TO INJECT TESTOSTRONE INTRAMUSCULARLY EVERY WEEK Medication List reviewed and reconciled with the [...] K2 40 MCG Tablet as directed Orally Taking Testosterone Cypionate 200 MG/ML Solution INJECT 0.75ML ONCE EVERY WEEK, DISCARD REMAINDER Intramuscular Taking BD Integra Syringe 23G X 1 3 ML Miscellaneous USE WITH TESTOSTERONE ONCE WEEKLY Taking BD Syringe/Needle 23G X 1 3 ML Miscellaneous USE ONE SYRINGE TO INJECT TESTOSTRONE INTRAMUSCULARLY EVERY WEEK Medication List reviewed and reconciled with the patient * Allergies: N o Known Drug Allergyno[Allergies Verified] Objective: * Vitals: H t: 72, Wt: 233, BMI:31.6, BP: 140/76, HR: 73, Temp: 98.6, Wt-k.69. * Examination: G eneral Examination: GENERAL APPEARANCE: p davida, well nourished, well developed, in no acute [...] ascites, no organomegaly, no mass, centripital obesity, Asymptomatic moderate umbilical hernia present without incarceration.? RECTAL EXAM: n ot examined. MUSCULOSKELETAL: e xtremities unremarkable, no clubbing, cyanosis or edema, Mild decreased range of motion neck. PERIPHERAL PULSES: n ormal. NEUROLOGIC: a lert and oriented, cranial nerves 2-12 grossly intact, deep tendon reflexes 2+ symmetrical, motor strength normal upper and lower extremities, sensory exam intact. PSYCH: a lert, oriented, Depression not present. Assessment: * Assessment: 1. H ypogonadism in male - E29.1 (Primary) N otes :He says he is receiving injections of testosterone given by the urologist. This was continued. 2 . M ajor depressive disorder, single episode, unspecified - F32.9 N otes :He is worried about hhis financial situation but his depression is mild. He said he does not require medication at this time. He will be followed regularly. 3 . C ervical radiculopathy - M54.12 N otes :I think it is more likely the pathology is in the cervical spine and in the shoulder joints. An MRI of the neck will be ordered. If necessary he will see [facility]. X-rays will bbe obtained as needed. We will continue with heat and rest and ibuprofen. 4 . O besity (BMI 30-39.9) - E66.9 N otes :He has gained 5 pounds. His body mass index is 31.6. We discussed his diet and nutrition. We made a plan for him to lose weight at a rate of one half of a pound per week. 5 . G ERD without esophagitis - K21.9 N otes :His reflux symptoms are well controlled with agrw-jkl-ijpvznm medication and no change was necessary. 6 . H yperlipidemia - E78.5 N otes :His fasting lipid profile has been ordered prior to his next visit. We reviewed his diet and nutrition today. We made a plan to lose weight. 7 . U mbilical hernia - K42.9 N otes :A small umbilical hernia is present but is causing no symptoms or will be observed without treatment. Plan: * Treatment: * Labs: * L ab: PROFILE, FASTING (COMPREHENSIVE METABOLIC) L ab: CBC w DIFF L ab: Lipid Panel L ab: Vitamin D 25-OH Total L ab: Testosterone, Total * Procedure Codes: * Preventive Medicine: Counseling: C are goal follow-up plan: Counseling for abnormal BMI given Y es Above Normal BMI Follow-up D ietary management education, guidance, and counseling, Dietary needs education, Exercise promotion: strength training, Exercise promotion: stretching, Feeding regime, Giving encouragement to exercise, Lifestyle education regarding diet, Nutrition / feeding management, Nutrition therapy, Prescribed activity/exercise education, Prescribed diet education, Prescribed dietary intake, Special diet education, Weight monitoring , Intervention, Order not done: Medical or Other reason not done * Follow Up: 4 Months (Reason: OV) * Images: * Sign off status: Completed true * Provider: Chris Lazo MD Date: 0 06/14/2024 Generated for Jessica gee/Sanjuanita/Zairaitting on: 06:26 PM EST History and Physical Notes * HPI (History of Present Illness) Category Sub-Category Detail Notes COVID-19 Screening Questions Have you had any new onset fever, chills, cough, congestion, sore throat, shortness of breath, muscle aches?: No Examination Category Sub-Category Detail Notes General Examination [...] ascites, no organomegaly, no mass, centripital obesity, Asymptomatic moderate umbilical hernia present without incarceration NEUROLOGIC: alert and oriented, cranial nerves 2-12 grossly intact, deep tendon reflexes 2+ symmetrical, motor strength normal upper and lower extremities, sensory exam intact SKIN: no suspicious lesion s, anicteric PERIPHERAL PULSES: normal BREASTS: no masses palpable b ilaterally MUSCULOSKELETAL: extremities unremark able, no clubbing, cyanosis or edema, Mild decreased range of motion neck LYMPH NODES: no enlarged lymph no maura,spleen normal RECTAL EXAM: not examined PSYCH: alert, oriented, Dep ression not present ORAL CAVITY: normal, unremarkable
--- OUTSIDE RECORDS SUMMARY | 2024-10-11 09:56 | XMS_ITS ---
Demographics Address [address] [place] [address] Mobile Email Address Preferred Language en Marital Status unmarried Mosque Affiliation Unknown Race White Ethnic Group Not or Lati no Author Organization Christiano Lazo III, MD Address [address] [address] Care Team Providers Care Balloon Artist Name Role Phone Dr. Christiano Lzao III Primary Care Provider REASON FOR VISIT speak to patient regarding blood in urine Social History Sex Assigned At : Social History Observation Description Sex Assigned At Male Encounters Encounter Location Date Provider Diagnosis Christiano Lazo III, MD [address] [place] [address] [address] [facility] [facility] [place] [address] 10/11/2024 Christiano Lazo Plan Of Treatment Next Appt Details Provider Name:Christiano Lazo , 03/14/2025 03:15:00 PM, [address] [place] [address] [place], [address], Provider Name:Christiano Lazo , 02/24/2026 03:00:00 PM, [address] [place] [address] [place], [address], Progress Notes * Michael SHELLDOB:1960 (64 yo M)Acc No.[id number]:10/11/2024 Patient: Michael VELARDE :1960 A ge:64 Y S ex:Male Address:[address] [place] [address] [address] , [place] [address] * true * Date: Generated for Printi ng/Faxing/eTransmitting on: 06:27 PM EST
--- OUTSIDE RECORDS SUMMARY | 2024-10-14 05:11 | XMS_ITS ---
Demographics Address [address] [facility] [address] [place] [address] Mobile Email Address Preferred Language en Marital Status unmarried Baptist Affiliation Unknown Race White Ethnic Group Not or Lati no Author Organization Christiano Lazo III, MD Address [address] [place] [address] Care Team Providers Care Electrician Telephone Name Role Phone Dr. Christiano Lazo III Primary Care Provider REASON FOR VISIT told patient to call Social History Sex Assigned At : Social History Observation Description Sex Assigned At Male Encounters Encounter Location Date Provider Diagnosis Christiano Lazo III, MD [address] [place] [address] [facility] [place] [address] 10/14/2024 Christiano Lazo Plan Of Treatment Next Appt Details Provider Name:Christiano Lazo , 03/14/2025 03:15:00 PM, [address] [place] [address] [place], [address], Provider Name:Christiano Lazo , 02/24/2026 03:00:00 PM, [address] [place] [address] [place], [address], Progress Notes * Michael SHELLDOB:1960 (64 yo M)Acc No.[id number]:10/14/2024 Patient: Augustine ALEXANDRAMichael MORRIS :1960 A ge:64 Y S ex:Male Address:[address] [place] [address] [address] , [place] [address] * true * Date: Generated for Printi ng/Faxing/eTransmitting on: 06:26 PM EST
--- OUTSIDE RECORDS SUMMARY | 2024-10-25 08:45 | XMS_ITS ---
Author Organization Christiano Lazo III, MD Address [address] [place] [address] Care Team Providers Care Housecalls Nurse Name Role Phone Dr. Christiano Lazo III Primary Care Provider Allergies Allergen (clinical drug ingredient) Drug/Non Drug Allergy documented on EMR Reaction Allergy Type Onset Date Status No Known Drug Allergy Unknown Drug Allergy Active Reason For Referral Reason Evaluate and Treat Diagnosis 1 Varicose veins (I86. 8) Referral Organization Christiano Lazo III, MD Referring Provider First Name Christiano Referring Provider Last Name Violet Referring Provider Speciality Internal edicine Referred Provider [facility] Referred Provider Specialty Vascular Kaylie ivet General Notes Verena Celaya 10/28/2024 10:47:02 AM > referral faxed with progress note, Verena Celaya 11/20/2024 02:36:26 PM > Patient was called to schedule appointment by office was left a voicemail. Dr. Lazo office spoke with patient and provided number for patient to call and schedule an appointment., Verena Celaya 11/20/2024 03:12:24 PM > Patient is scheduled for 12/27/24 @ 2pm for Ultrasound and will have a follow up to review US on 01/02/25 @ 3pm Referral Priority Routine Referral Appointment Date 12/27/2024 Reason Consult and Treat Snoring Patient needs sleep study Daytime Somnolence Diagnosis 1 Snoring (R06.83) Diagnosis 2 Daytime somnolence ( R40.0) Referral Organization Christiano Lazo III, MD Referring Provider First Name Christiano Referring Provider Last Name Violet Referring Provider Speciality Internal M edicine Referred Provider N[facility], Pulmonology Referred Provider Specialty Pulmonary Gertrude dodge General Notes Verena Celaya 10/28/2024 10:45:03 AM > Faxed referral with progress note.Yomi Amber 11/21/2024 02:22:39 PM > Patient was contacted by [facility] Pul[facility] was left a message to call and schedule an appointment. Patient was contacted by Dr. Lazo office and was provided with the [facility] phone number to contact them to schedule an appointment. Referral Priority Routine Referral Appointment Date 12/30/2024 REASON FOR VISIT Hyperlipidemia, GERD, Obesity, Depression, Cervical radiculopathy, Hypogonadism Medications Medication SIG (Take, Route, Frequency, Duration) Notes Start Date End Date Status Testosterone Cypionate 200 MG/ML INJECT 0.75ML ONCE EVERY WEEK, DISCARD REMAINDER Intramuscular Active BD Syringe/Needle 23G X 1 3 ML USE ONE SYRINGE TO INJECT TESTOSTRONE INTRAMUSCULARLY EVERY WEEK Active BD Integra Syringe 23G X 1 3 ML USE WITH TESTOSTERONE ONCE WEEKLY Active Omeprazole 20 MG TAKE 1 CAPSULE BY [facility] DAILY Oral Active Vitamin K2 40 MCG as directed Orally Active Magnesium 250 MG 1 tablet with a meal Orally Once a day Active Zinc 30 MG 1 capsule Orally Once a day Active Vitamin D3 25 MCG (1000 UT) 1 capsule Orally Once a day Active Calcium 500 MG 1 tablet with meals Orally Twice a day Active Social History Tobacco Use: Social History Observation Description Date Details (start date - stop date) Never Smoker NA - NA Sex Assigned At : Social History Observation Description Sex Assigned At Male Tobacco Use/Smoking Question Answer Notes Patient is a nonsmoker Additional Findings: Tobacco Non-User Aggressive non-smoker Vital Signs Temperature 99 degrees Fahrenheit 10/25/2024 Blood pressure systolic 136 mm Hg 10/26/19 25 Blood pressure diastolic 78 mm Hg 025 Heart Rate 79 /min 10/25/2024 Height 72 in 10/25/2024 Weight 234 lbs 10/25/2024 BMI 31.73 kg/m2 10/25/2024 Encounters Encounter Location Date Provider Diagnosis Christiano Lazo III, MD [address] [place] [address] [address] [place], [place] [address] 10/25/2024 Christiano Lazo Obesity (BMI 30-39.9 ) E66.9 ; Umbilical hernia K42.9 ; Hyperlipidemia E78.5 ; ED (erectile dysfunction) N52.9 ; Condyloma acuminata A63.0 ; Major depressive disorder, single episode, unspecified F32.9 ; Cervical radiculopathy M54.12 and Hypogonadism in male E29.1 Assessments Encounter Date Diagnosis (ICD Code) Assessment Notes Treat ment Notes Treatment Clinical Notes 10/25/2024 Obesity (BMI 30-39.9 ) (ICD-10 - E66.9) He has gained 5 pounds. His body mass index is 31.37. We discussed his diet and nutrition. We made a plan for him to lose weight at a rate of one half of a pound per week. 10/25/2024 Umbilical hernia (ICD-10 - K42.9) A small umbilical hernia is present but is causing no symptoms or will be observed without treatment. 10/25/2024 Hyperlipidemia (ICD-10 - E78.5) His fasting lipid profile has been ordered prior to his next visit. We reviewed his diet and nutrition today. We made a plan to lose weight. 10/25/2024 ED (erectile dysfunction) (ICD-10 - N52.9) This problem was addressed with medication which she says is no longer working well. He will be referred to urology if it persists. 10/25/2024 Condyloma acuminata (ICD-10 - A63.0) No new lesions were seen today. 10/25/2024 Major depressive disorder, single episode, unspecified (ICD-10 - F32.9) He is worried about hhis financial situation but his depression is mild. He said he does not require medication at this time. He will be followed regularly. 10/25/2024 Cervical radiculopathy (ICD-10 - M54.12) I think it is more likely the pathology is in the cervical spine and in the shoulder joints. An MRI of the neck will be ordered. If necessary he will see orrthopedics. X-rays will bbe obtained as needed. We will continue with heat and rest and ibuprofen. 10/25/2024 Hypogonadism in male (ICD-10 - E29.1) He says he is receiving injections of testosterone given by the urologist. This was continued. Plan Of Treatment Medication Medication Name Sig Start Date Stop Date Notes Testosterone Cypionate 200 MG/ML INJECT 0.75ML ONCE EVERY WEEK, DISCARD REMAINDER Intramuscular BD Syringe/Needle 23G X 1 3 ML USE ONE SYRINGE TO INJECT TESTOSTRONE INTRAMUSCULARLY EVERY WEEK BD Integra Syringe 23G X 1 3 ML USE WITH TESTOSTERONE ONCE WEEKLY Omeprazole 20 MG TAKE 1 CAPSULE BY [facility] DAILY Oral Vitamin K2 40 MCG as directed Orally Magnesium 250 MG 1 tablet with a meal Orally Once a day Zinc 30 MG 1 capsule Orally Once a day Vitamin D3 25 MCG (1000 UT) 1 capsule Orally Once a day Calcium 500 MG 1 tablet with meals Orally Twice a day Referrals Referral Date Details 10/25/2024 10/25/2024, Evaluate and Treat, [facility] 10/25/2024 10/25/2024, Consult and Treat Snoring Patient needs sleep study Daytime Somnolence, Pulmonology [facility] Next Appt Details Follow Up: 2 Months, Reason: OV Provider Name:Christiano Lazo , 03/14/2025 03:15:00 PM, [address] [place] [address] [address], [place], [id number], Provider Name:Christiano Lazo , 02/24/2026 03:00:00 PM, [address] [place] [address] [address], [place], [address], Progress Notes * SHELLMichaelDOB:1960 (64 yo M)Acc No.[id number]:10/25/2024 Progress Notes Patient: Michael VELARDE Provider: Chris Lazo MD :1960 A ge:64 Y S ex:Male Date:10/25/2024 Address:[address] [place] [address], [address] [place], [id number] Subjective: * Chief Complaints: * H yperlipidemiaGERDObesityDepressionCervical radiculopathyHypogonadism * HPI: C OVID-19 Screening: Fabiano urbano returns for a scheduled visit for medical management. One month ago he fell down after tripping and pulled a hamstring. This was painful for several weeks but has now resolved. He has a large vein on the lateral aspect of his left knee which worries him. It was a very large varicose vein that was painful. He was referred to endovascular surgery at [facility] for treatment. He has a colonoscopy scheduled in February at [facility]. He feels healthy and well otherwise. His appetite is good and he is trying to lose weight.He is under the care of [facility] urology for hypogonadism. His sex drive is normal now that he is receiving self-administered testosterone injections weekly. Questions H ave you had any new onset fever, chills, cough, congestion, sore throat, shortness of breath, muscle aches? N o * ROS: G eneral/Constitutional: pain o nly normal aches and pains. C hills d enies.?Fatigue a dmits. F ever d enies. E NT: Decreased hearing d enies. R espiratory: Cough d enies. C ardiovascular: Chest pain with exertion d enies. D yspnea on exertion?denies. S hortness of breath d enies. G astrointestinal: Constipation o ccasional. D ecreased appetite d enies. D iarrhea d enies. H eartburn d enies. N ausea d enies. 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 He was born in [place] near [place]. {'Work Hours':'47.5 hours per week', 'Exercise':'Patient has been working out'}. * Medications: T akingTestosterone Cypionate 200 MG/ML Solution INJECT 0.75ML ONCE EVERY WEEK, DISCARD REMAINDER Intramuscular BD Integra Syringe 23G X 1 3 ML Miscellaneous USE WITH TESTOSTERONE ONCE WEEKLY Omeprazole 20 MG Capsule Delayed Release TAKE 1 CAPSULE BY MOUTH DAILY Oral Taking Testosterone Cypionate 200 MG/ML Solution INJECT 0.75ML ONCE EVERY WEEK, DISCARD REMAINDER Intramuscular Taking BD Integra Syringe 23G X 1 3 ML Miscellaneous USE WITH TESTOSTERONE ONCE WEEKLY Taking Omeprazole 20 MG Capsule Delayed Release TAKE 1 CAPSULE BY MOUTH DAILY Oral DiscontinuedVitamin D3 25 MCG (1000 UT) Capsule 1 capsule Orally Once a day Calcium 500 MG Tablet 1 tablet with meals Orally Twice a day Magnesium 250 MG Tablet 1 tablet with a meal Orally Once a day Zinc 30 MG Capsule 1 capsule Orally Once a day Vitamin K2 40 MCG Tablet as directed Orally BD Syringe/Needle 23G X 1 3 ML Miscellaneous USE ONE SYRINGE TO INJECT TESTOSTRONE INTRAMUSCULARLY EVERY WEEK Medication List reviewed and reconciled with the patientDiscontinued Vitamin D3 25 MCG (1000 UT) Capsule 1 capsule Orally Once a day Discontinued Calcium 500 MG Tablet 1 tablet with meals Orally Twice a day Discontinued Magnesium 250 MG Tablet 1 tablet with a meal Orally Once a day Discontinued Zinc 30 MG Capsule 1 capsule Orally Once a day Discontinued Vitamin K2 40 MCG Tablet as directed Orally Discontinued BD Syringe/Needle 23G X 1 3 ML Miscellaneous USE ONE SYRINGE TO INJECT TESTOSTRONE INTRAMUSCULARLY EVERY WEEK Medication List reviewed and reconciled with the patient * Allergies: N o Known Drug Allergyno[Allergies Verified] Objective: * Vitals: H t: 72, Wt: 234, BMI:31.73, BP: 136/78, HR: 79, Temp: 99, Wt-k.14. * P ast Orders: Lab:Complete Blood Count Aut o Diff * Collection Date 09/24/2024 07/30/2021 Collection Time 04:26 PM 09:21 AM Order Date 09/24/2024 07/30/2021 White Blood Count 8.7 (Ref Range: 4.8-10.8 X10*3/uL) 4.8 (Ref Range: 4.8-10.8 X10*3/uL) Red Blood Count 5.28 (Ref Range: 4.60-5.80 X10*6/uL) 4.99 (Ref Range: 4.60-5.80 X10*6/uL) Hemoglobin 16.4 (Ref Range: 14.0-18.0 g/dl) 15.2 (Ref Range: 14.0-18.0 g/dl) Hematocrit 46.2 (Ref Range: 42.0-52.0 %) 44.3 (Ref Range: 42.0-52.0 %) Mean Corpuscular Volume 87.5 (Ref Range: 80.0-98.0 fL) 88.8 (Ref Range: 80.0-98.0 fL) Mean Corpuscular Hemoglobin 31.1 (Ref Range: 27.0-33.0 pg) 30.5 (Ref Range: 27.0-33.0 pg) Mean Corpuscular HGB Conc 35.5 (Ref Range: 31.0-36.0 g/dl) 34.3 (Ref Range: 31.0-36.0 g/dl) Red Cell Distribution Width 13.1 (Ref Range: 11.0-16.0 %) 12.4 (Ref Range: 11.0-16.0 %) Platelet Count 230 (Ref Range: 160-400 X10*3/uL) 233 (Ref Range: 160-400 X10*3/uL) Mean Platelet Volume 9.4 (Ref Range: 9.4-12.4 fL) 9.5 (Ref Range: 9.4-12.4 fL) Neutrophils Percent Auto 65.8 (Ref Range: 45-73 %) 53.8 (Ref Range: 45-73 %) Imm Gran Pct Auto 0.7 H (Ref Range: 0.0-0.4 %) 0.4 (Ref Range: 0.0-0.4 %) Lymphocytes Percent Auto 24.4 (Ref Range: 20-40 %) 36.0 (Ref Range: 20-40 %) Monocytes Percent Auto 7.2 (Ref Range: 2-11 %) 7.1 (Ref Range: 2-11 %) Eosinophils Percent Auto 1.6 (Ref Range: 0-4 %) 2.3 (Ref Range: 0-4 %) Basophils Percent Auto 0.3 (Ref Range: 0-2 %) 0.4 (Ref Range: 0-2 %) NRBC Pct Auto 0.0 (Ref Range: 0.0-0.2 /100WBC) 0.0 (Ref Range: 0.0-0.2 /100WBC) Neutrophils Absolute Auto 5.8 (Ref Range: 2.0-8.3 x10*3/uL) 2.6 (Ref Range: 2.0-8.3 x10*3/uL) Imm Gran Abs Auto 0.06 H (Ref Range: 0.00-0.03 X10*3/uL) 0.02 (Ref Range: 0.00-0.03 X10*3/uL) Lymphocytes Absolute Auto 2.1 (Ref Range: 1.2-4.9 X10*3/uL) 1.7 (Ref Range: 1.2-4.9 X10*3/uL) Monocytes Absolute Auto 0.6 (Ref Range: 0.1-1.2 X10*3/uL) 0.3 (Ref Range: 0.1-1.2 X10*3/uL) Eosinophils Absolute Auto 0.1 (Ref Range: 0.0-0.4 X10*3/uL) 0.1 (Ref Range: 0.0-0.4 X10*3/uL) Basophils Absolute Auto 0.0 (Ref Range: 0.0-0.2 X10*3/uL) 0.0 (Ref Range: 0.0-0.2 X10*3/uL) NRBC Abs Auto 0.000 (Ref Range: 0.0-0.012 X10*3/uL) 0.000 (Ref Range: 0.0-0.012 X10*3/uL) ???Lab:Comprehensive Met. Panel (Order Date - 09/24/2024) (Collection Date & Time - 09/24/2024 04:26 PM)?ValueReference Range?[id number] - mmol/L?Bilirubin Total0.50.0-1.0 - mg/dL?Aspartate Amino Tzobbhtwoar286-42 - U/L?Alanine Umryxwsoojnydjik506-94 - U/L?Total Protein7.96.5-8.0 - g/dL?Albumin Level4.63.5-5.0 - g/dL?Alkaline Mzcpluxnuxp9153-434 - U/L?Potassium4.13.3-5.1 - mmol/L?Mrrzhjpn549 96-108 - mmol/L?Carbon Pmqvqgo4181-09 - mmol/L?Anion Hsc6474-26 - ?Blood Urea Dsnbqebl234-24 - mg/dL?Creatinine0.880.5-1.4 - mg/dL ?Estimated Glomerular Filt Rate> 60-?Glucose Zhhwls0871-069 - mg/dL?Calcium9.08.4-10.2 - mg/dL * Examination: G eneral Examination: GENERAL APPEARANCE: p leasant, well nourished, well developed, in no acute distress, calm and relaxed: obese: man. HEAD: a traumatic, normocephalic. EYES: e sandra, perrla, anicteric, conjugate. EARS: n ormal. NOSE: s eptum intact. ORAL CAVITY: n ormal, unremarkable. NECK/THYROID: n o jugular venous distention, no carotid bruit, thyroid normal. LYMPH NODES: n o enlarged lymph nodes,spleen normal. SKIN: n o suspicious lesions, anicteric, Condylomas not seen. HEART: n o clicks, gallops, murmurs, or rubs, regular rhythm, S1, S2 normal, no s3, or vascular bruits. LUNGS: c lear to auscultation . BREASTS: no masses palpable bilaterally. ABDOMEN: b owel sounds normal, no ascites, no organomegaly, no mass: centripital obesity, Umbilical hernia without incarceration. RECTAL EXAM: n ot examined. MUSCULOSKELETAL: e xtremities unremarkable, no clubbing, cyanosis or edema, Mild pain and decreased range of motion cervical spine. PERIPHERAL PULSES: n ormal. NEUROLOGIC: a lert and oriented, cranial nerves 2-12 grossly intact, deep tendon reflexes 2+ symmetrical, motor strength normal upper and lower extremities, sensory exam intact. PSYCH: a lert, oriented. Assessment: * Assessment: 1. O besity (BMI 30-39.9) - E66.9 (Primary) N otes :He has gained 5 pounds. His body mass index is 31.37. We discussed his diet and nutrition. We made a plan for him to lose weight at a rate of one half of a pound per week. 2 . U mbilical hernia - K42.9 N otes :A small umbilical hernia is present but is causing no symptoms or will be observed without treatment. 3 . H yperlipidemia - E78.5 N otes :His fasting lipid profile has been ordered prior to his next visit. We reviewed his diet and nutrition today. We made a plan to lose weight. 4 . E D (erectile dysfunction) - N52.9 N otes :This problem was addressed with medication which she says is no longer working well. He will be referred to urology if it persists. 5 . C ondyloma acuminata - A63.0 N otes :No new lesions were seen today. 6 . M ajor depressive disorder, single episode, unspecified - F32.9 N otes :He is worried about hhis financial situation but his depression is mild. He said he does not require medication at this time. He will be followed regularly. 7 . C ervical radiculopathy - M54.12 N otes :I think it is more likely the pathology is in the cervical spine and in the shoulder joints. An MRI of the neck will be ordered. If necessary he will see orrthopedics. X-rays will bbe obtained as needed. We will continue with heat and rest and ibuprofen. 8 . H ypogonadism in male - E29.1 N otes :He says he is receiving injections of testosterone given by the urologist. This was continued. Plan: * Treatment: 2. O thers Continue Vitamin D3 Capsule, 25 [...] Vitamin K2 Tablet, 40 MCG, as directed, Orally; C ontinue Testosterone Cypionate Solution, 200 MG/ML, INJECT 0.75ML ONCE EVERY WEEK, DISCARD REMAINDER, Intramuscular; C ontinue BD Integra Syringe Miscellaneous, 23G X 1 3 ML, USE WITH TESTOSTERONE ONCE WEEKLY; C ontinue BD Syringe/Needle Miscellaneous, 23G X 1 3 ML, USE ONE SYRINGE TO INJECT TESTOSTRONE INTRAMUSCULARLY EVERY WEEK. Referral To:[facility] Surgery Reason:Evaluate and Treat Referral To:Pulmonology [facility] Pulmonary Diseases Reason:Consult and Treat Snoring Patient needs sleep study Daytime Somnolence * Procedure Codes: * Preventive Medicine: Counseling: [...] Other reason not done * Follow Up: 2 Months (Reason: OV) * Images: * Sign off status: Completed true * Provider: Chris Lazo MD Date: 0 10/25/2024 Generated for Jessica gee/Sanjuanita/Zakia on: 06:26 PM EST History and Physical Notes * HPI (History of Present Illness) Category Sub-Category Detail Notes COVID-19 Screening Questions Have you had any new onset fever, chills, cough, congestion, sore throat, shortness of breath, muscle aches?: No Examination Category Sub-Category Detail Notes General Examination GENERAL APPEARANCE: pleasant , well nourished, well developed, in no acute distress, calm and relaxed: obese: man HEAD: atraumatic, normocep halic EYES: eomi, perrla, anicte lauri, conjugate EARS: normal NOSE: septum intact NECK/THYROID: no jugular venous di stention, no carotid bruit, thyroid normal HEART: no clicks, gallops, murmurs, or rubs, regular rhythm, S1, S2 normal, no s3, or vascular bruits LUNGS: clear to auscultatio n ABDOMEN: bowel sounds normal, no ascites, no organomegaly, no mass: centripital obesity, Umbilical hernia without incarceration NEUROLOGIC: alert and oriented, cranial nerves 2-12 grossly intact, deep tendon reflexes 2+ symmetrical, motor strength normal upper and lower extremities, sensory exam intact SKIN: no suspicious lesion s, anicteric, Condylomas not seen PERIPHERAL PULSES: normal BREASTS: no masses palpable b ilaterally MUSCULOSKELETAL: extremities unremark able, no clubbing, cyanosis or edema, Mild pain and decreased range of motion cervical spine LYMPH NODES: no enlarged lymph no maura,spleen normal RECTAL EXAM: not examined PSYCH: alert, oriented ORAL CAVITY: normal, unremarkable Consultation Request Notes Referral Date Referring Provider Referred Provider Not es 10/25/2024 Christiano Lazo [facility] Evaluate and Treat 10/25/2024 Christiano Lazo [facility], Pulmonology Consult and Treat Snoring Patient needs sleep study Daytime Somnolence
--- OUTSIDE RECORDS SUMMARY | 2024-11-20 06:00 | XMS_ITS ---
Author Organization Christiano Lazo III, MD Address [address] [place] [address] Care Team Providers Care Sales Development Director Name Role Phone Dr. Christiano Lazo [...] Omeprazole 20 MG TAKE 1 CAPSULE BY [facility] DAILY Oral Active BD Syringe/Needle 23G [...] Date Provider Diagnosis Christiano Lazo III, MD [address] [place] [address] [address], [place] [address] 11/20/2024 Christiano Lazo Obesity (BMI 30-39.9 ) [...] organisms (ICD-10 - J20.8) He will use qrra-dev-phakwki medication for his symptoms. He was given 5 days of azithromycin and a follow-up appointment. 11/20/2024 Hyperlipidemia (ICD-10 - E78.5) His fasting lipid profile has been ordered prior to his next visit. We reviewed his diet and nutrition today. We made a plan to lose weight. 11/20/2024 GERD without esophagitis (ICD-10 - K21.9) His reflux symptoms are well controlled with rxod-ckf-mwiqzhn medication and no change was necessary. Plan [...] Omeprazole 20 MG TAKE 1 CAPSULE BY [facility] DAILY Oral BD Syringe/Needle 23G X [...] Chrissie son: OV Provider Name:Christiano Lazo , 03/14/2025 03:15:00 PM, [address] [place] [address] [address], [place], [address], Provider Name:Christiano Lazo , 02/24/2026 03:00:00 PM, [address] [place] [address] [address], [place], [address], Progress Notes * Michael SHELLDOB:1960 (64 yo M)Acc No.[id number]:11/20/2024 Patient: Michael VELARDE Provider: Chris Lazo MD :1960 A ge:64 Y S ex:Male Date:11/20/2024 Address:[address] [place] [id number] Subjective: * Chief Complaints: * A cute [...] of provider rendering services: { ...} [address] [facility] [address] L ocation of patient: radha ddress listed in demographics for today's visit P [...] A ggressive non-smoker 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 He was born in [place]. {'Work Hours':'47.5 hours per week', 'Exercise':'Patient has [...] Date & Time - 09/24/2024 04:26 PM)?ValueReference Range?Wgmxat680883-080 - mmol/L?Bilirubin Total0.50.0-1.0 - mg/dL?Aspartate Amino Owcvybhlnvw156-12 - U/L?Alanine Tevazkvypnywippy086-74 - U/L?Total Protein7.96.5-8.0 - g/dL?Albumin Level4.63.5-5.0 - g/dL?Alkaline Paulgqpyidp4845-173 - U/L?Potassium4.13.3-5.1 - mmol/L?Zqqzbouc268 96-108 - mmol/L?Carbon Jwiogcv8917-30 - mmol/L?Anion Ozf2660-32 - ?Blood Urea Tzilcvcs831-37 - mg/dL?Creatinine0.880.5-1.4 - mg/dL ?Estimated Glomerular Filt Rate> 60-?Glucose Bnpxei0198-386 - mg/dL?Calcium9.08.4-10.2 - mg/dL Assessment: * Assessment: 1. A cute bronchitis due to other specified organisms - J20.8 (Primary) N otes :He will use muzq-tys-vzumzmq medication for his symptoms. He was given [...] :His reflux symptoms are well controlled with hzzv-tsz-ayeuehi medication and no change was necessary. Plan: [...] MD Date: 0 11/20/2024 Generated for Jessica gee/Sanjuanita/Zakia on: 06:26 PM EST History and Physical Notes * HPI (History of Present Illness) Category Sub-Category Detail Notes Telehealth Location of [facility] rendering services:: {...} [address] [place] [address] Drive [address] [place] [address] Location of patient:: address listed in demographics [...]
--- OUTSIDE RECORDS SUMMARY | 2024-12-20 09:00 | XMS_ITS ---
Author Organization Christiano Lazo III, MD Address [address] [address] Care Team Providers Care Associate Account Executive Name Role Phone Dr. Christiano Lazo III Primary Care Provider Allergies Allergen (clinical drug ingredient) Drug/Non Drug Allergy documented on EMR Reaction Allergy Type Onset Date Status No Known Drug Allergy Unknown Drug Allergy Active REASON FOR VISIT GERD, Obesity, Umbilical hernia, Depression, Cervical radiculopathy, Hypogonadism Medications Medication SIG (Take, Route, Frequency, Duration) Notes Start Date End Date Status Zinc 30 MG 1 capsule Orally Once a day Active Vitamin K2 40 MCG as directed Orally Active Calcium 500 MG 1 tablet with meals Orally Twice a day Active Magnesium 250 MG 1 tablet with a meal Orally Once a day Active Vitamin D3 25 MCG (1000 UT) 1 capsule Orally Once a day Active Omeprazole 20 MG TAKE 1 CAPSULE BY MO UTH DAILY Oral Active Testosterone Cypionate 200 MG/ML INJECT 0.75ML ONCE EVERY WEEK, DISCARD REMAINDER Intramuscular Active BD Integra Syringe 23G X 1 3 ML USE WITH TESTOSTERONE ONCE WEEKLY Active BD Syringe/Needle 23G X 1 3 ML USE ONE SYRINGE TO INJECT TESTOSTRONE INTRAMUSCULARLY EVERY WEEK Active Azithromycin 250 MG as directed Orally 2 Tablets on the first day, one tablet the rest of the days 11/20/2024 Active Immunizations Vaccine Route Administration Date Status Comme nts Influenza Vaccine Afluria IM Intramuscular 12/20/2024 Admi nistered Social History Tobacco Use: Social [...] Problem Status W/U Status Risk Notes Problem [id number] Overweight (E66.3) Active confirmed He has gained back 4 pounds in his body mass index is 28. We reviewed his diet and nutrition. We reviewed his weight loss strategy at length today. Vital Signs Temperature 98.0 degrees Fahrenheit 12/21/19 25 Blood pressure systolic 136 mm Hg 12/21/19 25 Blood pressure diastolic 78 mm Hg 025 Heart Rate 69 /min 12/20/2024 Height 72 in 12/20/2024 Weight 210 lbs 12/20/2024 BMI 28.48 kg/m2 12/20/2024 Encounters Encounter Location Date Provider Diagnosis Christiano Lazo III, MD [address] [place] [address] [place] [address] 12/20/2024 Christiano Lazo Encounter for immunization Z23 ; Shoulder impingement M25.819 ; Overweight E66.3 ; Hyperlipidemia E78.5 ; Hypogonadism in male E29.1 and Cervical radiculopathy M54.12 Assessments Encounter Date Diagnosis (ICD Code) Assessment Notes Treat ment Notes Treatment Clinical Notes 12/20/2024 Encounter for immunization (ICD-10 - Z23) He received influenza vaccine today without difficulty and tolerated well. The risks and benefits were carefully explained to him as well as the side effects and he gave informed consent. 12/20/2024 Shoulder impingement (ICD-10 - M25.819) He has a discomfort in left shoulder primarily when he wakes up in the morning runs down into his left hand. This is likely nerve impingement. He is going to see his chiropractor next week. If it does not resolve quickly x-rays will be done and he will see orthopedics. 12/20/2024 Overweight (ICD-10 - E66.3) He remains slightly overweight. He has lost 14 pounds since his last visit. I recommended he continue to lose weight into his body mass index is in the normal range through regular exercise and a diet restricted in fat calories and sodium. 12/20/2024 Hyperlipidemia (ICD-10 - E78.5) His fasting lipid profile has been ordered prior to his next visit. We reviewed his diet and nutrition today. We made a plan to lose weight. 12/20/2024 Hypogonadism in male (ICD-10 - E29.1) He says he is receiving injections of testosterone given by the urologist. This was continued. 12/20/2024 Cervical radiculopathy (ICD-10 - M54.12) The pain in the shoulder is not reproduced by manipulation of the neck at this time. His neck is pain-free currently. Plan Of Treatment Medication Medication Name Sig Start Date Stop Date Notes Zinc 30 MG 1 capsule Orally Once a day Vitamin K2 40 MCG as directed Orally Calcium 500 MG 1 tablet with meals Orally Twice a day Magnesium 250 MG 1 tablet with a meal Orally Once a day Vitamin D3 25 MCG (1000 UT) 1 capsule Orally Once a day Omeprazole 20 MG TAKE 1 CAPSULE BY MO UTH DAILY Oral Testosterone Cypionate 200 MG/ML INJECT 0.75ML ONCE EVERY WEEK, DISCARD REMAINDER Intramuscular BD Integra Syringe 23G X 1 3 ML USE WITH TESTOSTERONE ONCE WEEKLY BD Syringe/Needle 23G X 1 3 ML USE ONE SYRINGE TO INJECT TESTOSTRONE INTRAMUSCULARLY EVERY WEEK Azithromycin 250 MG as directed Orally 2 Tablets on the first day, one tablet the rest of the days 11/20/2024 Next Appt Details Follow Up: 3 Weeks, Reason: Telehealth Provider Name:Christiano Lazo , 03/14/2025 03:15:00 PM, [address] [place] [address] [address], [place], [address], Provider Name:Christiano Lazo , 02/24/2026 03:00:00 PM, [address] [place] [address] [address], [place], [address], Progress Notes * Michael SHELLDOB:1960 (64 yo M)Acc No.[id number]:12/20/2024 Progress Notes Patient: Michael VELARDE Provider: Chris Lazo MD :1960 A ge:64 Y S ex:Male Date:12/20/2024 Address:[address] [place], [place] [id number] Subjective: * Chief Complaints: * G ERDObesityUmbilical herniaDepressionCervical radiculopathyHypogonadism * HPI: C OVID-19 Screening: .On a recent visit he complained of a painful varicose vein just above the lateral aspect of his left knee. We had referred him to vascular surgery but he has changed his mind about having this evaluated. He has decided not to seek the consultation and to live with the intermittent mild discomfort. Upon examination the area appeared benign today. He has developed a discomfort that begins in his anterior left shoulder and radiates down into his hand described as a burning sensation. He has an appointment to see a chiropractor next week. This is likely nerve impingement in his shoulder. X-ray of the shoulder was obtained. He has an appointment with urology next week for further evaluation and management of his hypogonadism. He is generally healthy and well.He has lost 14 pounds since his last visit through diet and exercise. Questions H ave you had any new onset fever, chills, cough, congestion, sore throat, shortness of breath, muscle aches? N o * ROS: G eneral/Constitutional: pain L eft shoulder radiation to the left hand of one week's duration mostly in the morning on waking. C hills d enies. F atigue a dmits. F ever d enies. 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 He was born in [facility] near [place]. {'Work Hours':'47.5 hours per week', 'Exercise':'Patient has [...] TAKE 1 CAPSULE BY MOUTH DAILY Oral Azithromycin 250 MG Tablet as directed Orally 2 Tablets on the first day, one tablet the rest of the days BD Syringe/Needle 23G X 1 3 ML [...] 1 CAPSULE BY MOUTH DAILY Oral Taking Azithromycin 250 MG Tablet as directed Orally 2 Tablets on the first day, one tablet the rest of the days Taking BD Syringe/Needle 23G X 1 3 ML Miscellaneous USE ONE SYRINGE TO INJECT TESTOSTRONE INTRAMUSCULARLY EVERY WEEK Medication List reviewed and reconciled with the patient * Allergies: N o Known Drug Allergyno[Allergies Verified] Objective: * Vitals: H t: 72, Wt: 210, BMI:28.48, BP: 136/78, HR: 69, Temp: 98.0, Wt-k.25. * P ast Orders: Lab:Complete Blood Count [...] Date & Time - 09/24/2024 04:26 PM)?ValueReference Range?Llhnjo310158-544 - mmol/L?Bilirubin Total0.50.0-1.0 - mg/dL?Aspartate Amino Pwasamudela244-15 - U/L?Alanine Tpebiskqzqgksbqv349-36 - U/L?Total Protein7.96.5-8.0 - g/dL?Albumin Level4.63.5-5.0 - g/dL?Alkaline Laqulxlpnhk2384-274 - U/L?Potassium4.13.3-5.1 - mmol/L?Uhsfojxb745 96-108 - mmol/L?Carbon Jphauga1907-81 - mmol/L?Anion Oxh0878-86 - ?Blood Urea Wrzlpzaw789-24 - mg/dL?Creatinine0.880.5-1.4 - mg/dL ?Estimated Glomerular Filt Rate> 60-?Glucose Qsxobc5047-370 - mg/dL?Calcium9.08.4-10.2 - mg/dL * Examination: G eneral Examination: GENERAL APPEARANCE: p leasant, well nourished, well developed, in no acute distress, calm and relaxed: overweight: man. HEAD: a traumatic, normocephalic. EYES: e [...] normal, no ascites, no organomegaly, no mass: overweight, Asymptomatic small hiatal hernia. RECTAL EXAM: n ot examined. MUSCULOSKELETAL: e xtremities unremarkable, no clubbing, cyanosis or edema,, Pain to palpation of left shoulder. PERIPHERAL PULSES: n ormal. NEUROLOGIC: a lert and oriented, cranial nerves 2-12 grossly intact, deep tendon reflexes 2+ symmetrical, motor strength normal upper and lower extremities, sensory exam intact. PSYCH: a lert, oriented. Assessment: * Assessment: 1. S houlder impingement - M25.819 (Primary) N otes :He has a discomfort in left shoulder primarily when he wakes up in the morning runs down into his left hand. This is likely nerve impingement. He is going to see his chiropractor next week. If it does not resolve quickly x-rays will be done and he will see orthopedics. 2 . E ncounter for immunization - Z23 N otes :He received influenza vaccine today without difficulty and tolerated well. The risks and benefits were carefully explained to him as well as the side effects and he gave informed consent. 3 . O verweight - E66.3 N otes :He remains slightly overweight. He has lost 14 pounds since his last visit. I recommended he continue to lose weight into his body mass index is in the normal range through regular exercise and a diet restricted in fat calories and sodium. 4 . H yperlipidemia - E78.5 N otes :His fasting lipid profile has been ordered prior to his next visit. We reviewed his diet and nutrition today. We made a plan to lose weight. 5 . H ypogonadism in male - E29.1 N otes :He says he is receiving injections of testosterone given by the urologist. This was continued. 6 . C ervical radiculopathy - M54.12 N otes :The pain in the shoulder is not reproduced by manipulation of the neck at this time. His neck is pain-free currently. Plan: * Treatment: * Immunizations: Influenza Vaccine Afluria : 0.5 mL (Dose No:1) (Route: Intramuscular) given by Gerardo Wolf on Left Arm ???Immunization record has been reviewed and updated. * Procedure Codes: 9 0674 CCIIV4 VAC NO PRSV 0.5 ML [id number] FLU VACC 4 ELLI 3 YRS PLUS IM * Preventive Medicine: Counseling: C are goal [...] Other reason not done * Follow Up: 3 Weeks (Reason: Telehealth) * Images: * Sign off status: Completed true * Provider: Chris Lazo MD Date: Generated for Jessica gee/Sanjuanita/eTktitting on: 06:27 PM EST History and Physical Notes * HPI (History of Present Illness) Category Sub-Category Detail Notes COVID-19 Screening Questions Have you had any new onset fever, chills, cough, congestion, sore throat, shortness of breath, muscle aches?: No Examination Category Sub-Category Detail Notes General Examination GENERAL APPEARANCE: pleasant , well nourished, well developed, in no acute distress, calm and relaxed: overweight: man HEAD: atraumatic, normocep halic EYES: eomi, perrla, anicte lauri, conjugate EARS: normal NOSE: septum intact NECK/THYROID: no jugular venous di stention, no carotid bruit, thyroid normal HEART: no clicks, gallops, murmurs, or rubs, regular rhythm, S1, S2 normal, no s3, or vascular bruits LUNGS: clear to auscultatio n ABDOMEN: bowel sounds normal, no ascites, no organomegaly, no mass: overweight, Asymptomatic small hiatal hernia NEUROLOGIC: alert and oriented, cranial nerves 2-12 grossly intact, deep tendon reflexes 2+ symmetrical, motor strength normal upper and lower extremities, sensory exam intact SKIN: no suspicious lesion s, anicteric PERIPHERAL PULSES: normal BREASTS: no masses palpable b ilaterally MUSCULOSKELETAL: extremities unremark able, no clubbing, cyanosis or edema,, Pain to palpation of left shoulder LYMPH NODES: no enlarged lymph no maura,spleen normal RECTAL EXAM: not examined PSYCH: alert, oriented ORAL CAVITY: normal, unremarkable
--- OUTSIDE RECORDS SUMMARY | 2024-12-27 12:00 | XMS_ITS ---
Demographics Address [address] [facility] [address] [place] [address] Mobile Email Address Preferred Language en Marital Status unmarried Jehovah'S Witness Affiliation Unknown Race White Ethnic Group Not or Lati no Author Organization Christiano Lazo III, MD Address [address] [place] [address] Care Team Providers Care Hand Bookbinder Name Role Phone Dr. Christiano Lazo III Primary Care Provider REASON FOR VISIT Follow up Social History Sex Assigned At : Social History Observation Description Sex Assigned At Male Encounters Encounter Location Date Provider Diagnosis Christiano Lazo III, MD [address] [place] [address] [place] [address] 12/27/2024 Christiano Lazo Plan Of Treatment Next Appt Details Provider Name:Christiano Lazo , 03/14/2025 03:15:00 PM, [address] [place] [address] [place], [address], Provider Name:Christiano Lazo , 02/24/2026 03:00:00 PM, [address] [place] [address] [place], [address], Progress Notes * Michael SHELLDOB:1960 (64 yo M)Acc No.[id number]:12/27/2024 Progress Notes Patient: Michael VELARDE Provider: Chris Lazo MD :1960 A ge:64 Y S ex:Male Date:12/27/2024 Address:[address] [place] [address] [address] , [place] [id number] Subjective: * Chief Complaints: * 1 . Follow up. * Medical History: Objective: * Vitals: Assessment: Plan: * Treatment: * Images: * The named appointment provid er may or may not be the originator of this progress note, and it is not deemed complete until electronically signed by the appointment provider. Sign off status: Pending * Provider: Chris Lazo MD Date: Generated for Jessica gee/Sanjuanita/Zakia on: 06:27 PM EST
--- OUTSIDE RECORDS SUMMARY | 2025-01-10 10:15 | XMS_ITS ---
Author Organization Christiano Lazo III, MD Address [address] [place] [address] Care Team Providers Care [place] Upholsterer Name Role Phone Dr. Christiano Lazo III Primary Care Provider Allergies Allergen (clinical drug ingredient) Drug/Non Drug Allergy documented on EMR Reaction Allergy Type Onset Date Status No Known Drug Allergy Unknown Drug Allergy Active REASON FOR VISIT Left shoulder pain, Varicose veins left leg, GERD, Depression, Cervical radiculopathy, Hypogonadism Medications Medication SIG (Take, Route, Frequency, Duration) Notes Start Date End Date Status Vitamin K2 40 MCG as directed Orally Active Testosterone Cypionate 200 MG/ML INJECT 0.75ML ONCE EVERY WEEK, DISCARD REMAINDER Intramuscular Active BD Integra Syringe 23G X 1 3 ML USE WITH TESTOSTERONE ONCE WEEKLY Active Omeprazole 20 MG TAKE 1 CAPSULE BY MO UTH DAILY Oral Active BD Syringe/Needle 23G X 1 3 ML USE ONE SYRINGE TO INJECT TESTOSTRONE INTRAMUSCULARLY EVERY WEEK Active Magnesium 250 MG 1 tablet with a meal Orally Once a day Active Zinc 30 MG 1 capsule Orally Once a day Active Vitamin D3 25 MCG (1000 UT) 1 capsule Orally Once a day Active Calcium 500 MG 1 tablet with meals Orally Twice a day Active Azithromycin 250 MG as directed Orally 2 Tablets on the first day, one tablet the rest of the days 11/20/2024 Active Social History Tobacco Use: Social History Observation Description Date Details (start date - stop date) Never Smoker NA - NA Sex Assigned At : Social History Observation Description Sex Assigned At Male Tobacco Use/Smoking Question Answer Notes Patient is a nonsmoker Additional Findings: Tobacco Non-User Aggressive non-smoker Vital Signs Temperature 98.4 degrees Fahrenheit 01/11/20 25 Blood pressure systolic 124 mm Hg 01/11/20 25 Blood pressure diastolic 76 mm Hg 025 Heart Rate 71 /min 01/10/2025 Height 72 in 01/10/2025 Weight 214 lbs 01/10/2025 BMI 29.02 kg/m2 01/10/2025 Encounters Encounter Location Date Provider Diagnosis Christiano Lazo III, MD [address] [place] [address] [place] [address] 01/10/2025 Christiano Lazo Hyperlipidemia E78.5 ; Major depressive disorder, single episode, unspecified F32.9 ; ED (erectile dysfunction) N52.9 ; Overweight E66.3 ; Umbilical hernia K42.9 ; GERD without esophagitis K21.9 and Hypogonadism in male E29.1 Assessments Encounter Date Diagnosis (ICD Code) Assessment Notes Treat ment Notes Treatment Clinical Notes 01/10/2025 Hyperlipidemia (ICD-10 - E78.5) No change in his regimen was made. I strongly recommended aggressive weight loss and diet low in animal fat. Comprehensive blood work with a fasting lipid profile was ordered. 01/10/2025 Major depressive disorder, single episode, unspecified (ICD-10 - F32.9) His depression is in remission. He has been compliant with his treatments. Observation was continued. 01/10/2025 ED (erectile dysfunction) (ICD-10 - N52.9) This problem has been resolved with use of medication. 01/10/2025 Overweight (ICD-10 - E66.3) He has gained back 4 pounds in his body mass index is 29. We reviewed his diet and nutrition. We reviewed his weight loss strategy at length today. 01/10/2025 Umbilical hernia (ICD-10 - K42.9) A small umbilical hernia is present but is causing no symptoms or will be observed without treatment. 01/10/2025 GERD without esophagitis (ICD-10 - K21.9) His reflux symptoms are well controlled with djee-cgb-mqnbwmw medication and no change was necessary. 01/10/2025 Hypogonadism in male (ICD-10 - E29.1) He says he is receiving injections of testosterone given by the urologist. This was continued. Plan Of Treatment Medication Medication Name Sig Start Date Stop Date Notes Vitamin K2 40 MCG as directed Orally Testosterone Cypionate 200 MG/ML INJECT 0.75ML ONCE EVERY WEEK, DISCARD REMAINDER Intramuscular BD Integra Syringe 23G X 1 3 ML USE WITH TESTOSTERONE ONCE WEEKLY Omeprazole 20 MG TAKE 1 CAPSULE BY MA UT DAILY Oral BD Syringe/Needle 23G X 1 3 ML USE ONE SYRINGE TO INJECT TESTOSTRONE INTRAMUSCULARLY EVERY WEEK Magnesium 250 MG 1 tablet with a meal Orally Once a day Zinc 30 MG 1 capsule Orally Once a day Vitamin D3 25 MCG (1000 UT) 1 capsule Orally Once a day Calcium 500 MG 1 tablet with meals Orally Twice a day Azithromycin 250 MG as directed Orally 2 Tablets on the first day, one tablet the rest of the days 11/20/2024 Pending Test Test Name Order Date PROFILE, FASTING (COMPREHENSIVE METABOLI C) 01/10/2025 PSA, TOTAL 01/10/2025 CBC w DIFF 01/10/2025 Lipid Panel 01/10/2025 Vitamin D 25-OH Total 01/10/2025 Next Appt Details Follow Up: As Scheduled, Chrissie son: Annual Exam Provider Name:Christiano Lazo , 03/14/2025 03:15:00 PM, [address] [place] [address] [address], [place], [address], Provider Name:Christiano Lazo , 02/24/2026 03:00:00 PM, [address] [place] [address] [address], [place], [address], Progress Notes * Michael SHELLDOB:1960 (64 yo M)Acc No.[id number]:01/10/2025 Progress Notes Patient: Michael VELARDE Provider: Chris Lazo MD :1960 A ge:64 Y S ex:Male Date:01/10/2025 Address:[address] [place] [address] [id number] Subjective: * Chief Complaints: * L eft shoulder painVaricose veins left legGERDDepressionCervical radiculopathyHypogonadism * HPI: C OVID-19 Screening: He returns for follow-up of the left neck and shoulder pain and varicose veins.He has been seeing his chiropractor and the pain in his neck that radiates into his shoulder and arm is improving. He was told it was due to scoliosis. He was given exercises to do which he is following.He continues to receive testosterone for hypogonadism and reports normal sexual functioning. His depression is in remission. His esophageal reflux symptoms are well controlled. Varicose veins in his left leg have become less painful and are only a mild nuisance. He is generally healthy and well. Questions H ave you had any new onset fever, chills, cough, congestion, sore throat, shortness of breath, muscle aches? N o * ROS: G eneral/Constitutional: pain L eft neck and shoulder, otherwise only normal aches and pains. C hills d enies. F atigue a dmits. F ever d enies. ? E NT: Decreased hearing d enies. R espiratory: Cough d enies. C ardiovascular: Chest pain with exertion d enies. D yspnea on exertion?denies. S hortness of breath d enies. G astrointestinal: Constipation d enies. D ecreased appetite d enies.?Diarrhea d enies. H eartburn c ontrolled with medications. N ausea d enies.?Rectal bleeding d enies. V omiting d enies. H ematology: bruising d enies. p etechiae d enies. S wollen glands n one have been noted. G enitourinary: Frequent urination d enies. M usculoskeletal: Muscle aches d enies. P ainful joints d enies. S ciatica d enies. W eakness d enies. S kin: Itching d enies. R gerhard d enies. S kin lesion(s)?No warts noted. N eurologic: Difficulty speaking d enies. 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 He was born in [facility] near [place]. {'Work Hours':'47.5 hours per week', 'Exercise':'Patient has [...] Orally Testosterone Cypionate 200 MG/ML Solution INJECT 0.25ML ONCE EVERY WEEK, DISCARD REMAINDER Intramuscular BD Integra Syringe 23G X 1 3 ML Miscellaneous USE WITH TESTOSTERONE ONCE WEEKLY Omeprazole 20 MG Capsule Delayed Release TAKE 1 CAPSULE BY MOUTH DAILY Oral BD Syringe/Needle 23G X 1 3 ML Miscellaneous USE ONE SYRINGE TO INJECT TESTOSTRONE INTRAMUSCULARLY EVERY WEEK Azithromycin 250 MG Tablet as directed Orally 2 Tablets on the first day, one tablet the rest of the days Medication List reviewed and reconciled with the [...] Taking Testosterone Cypionate 200 MG/ML Solution INJECT 0.25ML ONCE EVERY WEEK, DISCARD REMAINDER Intramuscular Taking BD Integra Syringe 23G X 1 3 ML Miscellaneous USE WITH TESTOSTERONE ONCE WEEKLY Taking Omeprazole 20 MG Capsule Delayed Release TAKE 1 CAPSULE BY MOUTH DAILY Oral Taking BD Syringe/Needle 23G X 1 3 ML Miscellaneous USE ONE SYRINGE TO INJECT TESTOSTRONE INTRAMUSCULARLY EVERY WEEK Taking Azithromycin 250 MG Tablet as directed Orally 2 Tablets on the first day, one tablet the rest of the days Medication List reviewed and reconciled with the patient * Allergies: N o Known Drug Allergyno[Allergies Verified] Objective: * Vitals: H t: 72, Wt: 214, BMI:29.02, BP: 124/76, HR: 71, Temp: 98.4, Wt-k.07. * Examination: G eneral Examination: GENERAL APPEARANCE: p davida, well nourished, well developed, in no acute distress, calm and relaxed: overweight: man. HEAD: a traumatic, normocephalic. EYES: e sandra, perrla, anicteric, conjugate. EARS: n ormal. NOSE: s eptum intact. ORAL CAVITY: n ormal, unremarkable. NECK/THYROID: n o jugular venous distention, no carotid bruit, thyroid normal, Mild decreased Range of motion to the left, reproduces left shoulder pain. LYMPH NODES: n o enlarged lymph nodes,spleen normal. SKIN: n o suspicious lesions, anicteric. HEART: n o clicks, gallops, murmurs, or rubs, regular rhythm, S1, S2 normal, no s3, or vascular bruits. LUNGS: c lear to auscultation . BREASTS: no masses palpable bilaterally. ABDOMEN: b owel sounds normal, no ascites, no organomegaly, no mass: overweight. RECTAL EXAM: n ot examined. MUSCULOSKELETAL: e xtremities unremarkable, no clubbing, cyanosis or edema. PERIPHERAL PULSES: n ormal. NEUROLOGIC: a lert and oriented, cranial nerves 2-12 grossly intact, deep tendon reflexes 2+ symmetrical, motor strength normal upper and lower extremities, sensory exam intact. PSYCH: a lert, oriented. Assessment: * Assessment: 1. M ajor depressive disorder, single episode, unspecified - F32.9 (Primary) N otes :His depression is in remission. He has been compliant with his treatments. Observation was continued. 2 . H yperlipidemia - E78.5 N otes :No change in his regimen was made. I strongly recommended aggressive weight loss and diet low in animal fat. Comprehensive blood work with a fasting lipid profile was ordered. 3 . E D (erectile dysfunction) - N52.9 N otes :This problem has been resolved with use of medication. 4 . O verweight - E66.3 N otes :He has gained back 4 pounds in his body mass index is 29. We reviewed his diet and nutrition.? We reviewed his weight loss strategy at length today. 5 . U mbilical hernia - K42.9 N otes :A small umbilical hernia is present but is causing no symptoms or will be observed without treatment. 6 . G ERD without esophagitis - K21.9 N otes :His reflux symptoms are well controlled with caqd-nzx-ghlazkf medication and no change was necessary. 7 . H ypogonadism in male - E29.1 N otes :He says he is receiving injections of testosterone given by the urologist. This was continued. Plan: * Treatment: 2. H yperlipidemia L AB: PROFILE, FASTING (COMPREHENSIVE METABOLIC) L AB: PSA, TOTAL L AB: CBC w DIFF L AB: Lipid Panel L AB: Vitamin D 25-OH Total 3. E D (erectile dysfunction) L AB: PROFILE, FASTING (COMPREHENSIVE METABOLIC) L AB: PSA, TOTAL L AB: CBC w DIFF L AB: Lipid Panel L AB: Vitamin D 25-OH Total 4. O thers Continue Vitamin D3 Capsule, 25 [...] USE WITH TESTOSTERONE ONCE WEEKLY; C ontinue Omeprazole Capsule Delayed Release, 20 MG, TAKE 1 CAPSULE BY MOUTH DAILY, Oral; C ontinue BD Syringe/Needle Miscellaneous, 23G X 1 3 ML, USE ONE SYRINGE TO INJECT TESTOSTRONE INTRAMUSCULARLY EVERY WEEK. * Procedure Codes: * Preventive Medicine: Counseling: [...] * Follow Up: A s Scheduled (Reason: Annual Exam) * Images: * Sign off status: Completed true * Provider: Chris Lazo MD Date: 03/12/2024 Generated for Paolai gerard/Sanjuanita/eTransmitting on: 06:26 PM EST History and Physical [...] venous di stention, no carotid bruit, thyroid normal, Mild decreased Range of motion to the left, reproduces left shoulder pain HEART: no clicks, gallops, murmurs, or rubs, regular rhythm, S1, S2 normal, no s3, or vascular bruits LUNGS: clear to auscultatio n ABDOMEN: bowel sounds normal, no ascites, no organomegaly, no mass: overweight NEUROLOGIC: alert and oriented, cranial nerves 2-12 [...]
--- OUTSIDE RECORDS SUMMARY | 2025-02-21 08:45 | XMS_ITS ---
Author Organization Christiano Lazo III, MD Address [address] [place] [address] Care Team Providers Care Pin Drafter Name Role Phone Dr. Christiano Lazo III Primary Care Provider Allergies Allergen (clinical drug ingredient) Drug/Non Drug Allergy documented on EMR Reaction Allergy Type Onset Date Status No Known Drug Allergy Unknown Drug Allergy Active REASON FOR VISIT Annual Exam Medications Medication SIG (Take, Route, Frequency, Duration) Notes Start Date End Date Status Vitamin D3 25 MCG (1000 UT) 1 capsule Orally Once a day Active BD Integra Syringe 23G X 1 3 ML USE WITH TESTOSTERONE ONCE WEEKLY Active Omeprazole 20 MG TAKE 1 CAPSULE BY MO UTH DAILY Oral Active BD Syringe/Needle 23G X 1 3 ML USE ONE SYRINGE TO INJECT TESTOSTRONE INTRAMUSCULARLY EVERY WEEK Activ e Azithromycin 250 MG as directed Orally 2 Tablets on the first day, one tablet the rest of the days 11/20/2024 Active Magnesium 250 MG 1 tablet with a meal Orally Once a day Active Zinc 30 MG 1 capsule Orally Onc e a day Active Vitamin K2 40 MCG as directed Orally Active Testosterone Cypionate 200 MG/ML INJECT 0.75ML ONCE EVERY WEEK, DISCARD REMAINDER Intramuscular Active Azithromycin 250 MG like directed Orally 2 Tablets on the first day, one tablet the rest of the days for 5 days 02/21/2025 02/26/2025 Active Calcium 500 MG 1 tablet with meals Orally Twice a day Active Social History Tobacco Use: Social History Observation Description Date Details (start date - stop date) Never Smoker NA - NA Sex Assigned At : Social History Observation Description Sex Assigned At Male Tobacco Use/Smoking Question Answer Notes Patient is a nonsmoker Additional Findings: Tobacco Non-User Aggressive non-smoker Vital Signs Blood pressure systolic 118 mm Hg 02/22/20 25 Blood pressure diastolic 68 mm Hg 025 Heart Rate 66 /min 02/21/2025 Respiratory Rate 15 /min 02/21/2025 Height 72 in 02/21/2025 Weight 211 lbs 02/21/2025 BMI 28.61 kg/m2 02/21/2025 Encounters Encounter Location Date Provider Diagnosis Christiano Lazo III, MD [address] [place] [address] [place] [address] 02/21/2025 Christiano Lazo Major depressive disorder, single episode, unspecified F32.9 ; Overweight E66.3 ; Umbilical hernia K42.9 ; Hyperlipidemia E78.5 ; Condyloma acuminata A63.0 ; GERD without esophagitis K21.9 ; Cervical radiculopathy M54.12 and Hypogonadism in male E29.1 Assessments Encounter Date Diagnosis (ICD Code) Assessment Notes Treat ment Notes Treatment Clinical Notes 02/21/2025 Major depressive disorder, single episode, unspecified (ICD-10 - F32.9) His depression is in remission. He has been compliant with his treatments. Observation was continued. 02/21/2025 Overweight (ICD-10 - E66.3) He has gained back 4 pounds in his body mass index is 28. We reviewed his diet and nutrition. We reviewed his weight loss strategy at length today. 02/21/2025 Umbilical hernia (ICD-10 - K42.9) A small umbilical hernia is present but is causing no symptoms or will be observed without treatment. 02/21/2025 Hyperlipidemia (ICD-10 - E78.5) His LDL is 165. We discussed this at length. No change in his regimen was made. I strongly recommended aggressive weight loss and diet low in animal fat. Comprehensive blood work with a fasting lipid profile was ordered. 02/21/2025 Condyloma acuminata (ICD-10 - A63.0) No new lesions were seen today. 02/21/2025 GERD without esophagitis (ICD-10 - K21.9) His reflux symptoms are well controlled with prqe-wuv-cjwjozf medication and no change was necessary. 02/21/2025 Cervical radiculopathy (ICD-10 - M54.12) The pain in the shoulder is not reproduced by manipulation of the neck at this time. His neck is pain-free currently. 02/21/2025 Hypogonadism in male (ICD-10 - E29.1) He is administering and injections of testosterone once a week. He says this makes a notable improvement and his function has returned to normal. Plan Of Treatment Medication Medication Name Sig Start Date Stop Date Notes Vitamin D3 25 MCG (1000 UT) 1 capsule Orally Once a day BD Integra Syringe 23G X 1 3 ML USE WITH TESTOSTERONE ONCE WEEKLY Omeprazole 20 MG TAKE 1 CAPSULE BY MO UTH DAILY Oral BD Syringe/Needle 23G X 1 3 ML USE ONE SYRINGE TO INJECT TESTOSTRONE INTRAMUSCULARLY EVERY WEEK Azithromycin 250 MG as directed Orally 2 Tablets on the first day, one tablet the rest of the days 11/20/2024 Magnesium 250 MG 1 tablet with a meal Orally Once a day Zinc 30 MG 1 capsule Orally Once a day Vitamin K2 40 MCG as directed Orally Testosterone Cypionate 200 MG/ML INJECT 0.75ML ONCE EVERY WEEK, DISCARD REMAINDER Intramuscular Azithromycin 250 MG like directed Orally 2 Tablets on the first day, one tablet the rest of the days for 5 days 02/21/2025 02/26/2025 Calcium 500 MG 1 tablet with meals Orally Twice a day Next Appt Details Follow Up: 3 Weeks, Reason: ov check mole Provider Name:Christiano Lazo , 03/14/2025 03:15:00 PM, [address] [place] [address] [address] [place], [place], [address], Provider Name:Christiano Lazo , 02/24/2026 03:00:00 PM, [address] [place] [address] [place], [place], [id number], Progress Notes * Michael SHELLDOB:1960 (64 yo M)Acc No.[id number]:02/21/2025 Progress Notes Patient: Michael VELARDE Provider: Chris Lazo MD :1960 A ge:64 Y S ex:Male Date:02/21/2025 Address:[address] [place] [address] [phone] Subjective: * Chief Complaints: * A nnual Exam * HPI: D epression Screening: He returns to the office at the age of 64 for his annual visit. Is feeling healthy and well.? He denies any recent problems. 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 He is happy and a relationship. He has had no chest pain shortness of breath nausea vomiting diarrhea bleeding joint pain or skin lesions. His neck pain is minimal at this time. The umbilical hernia is asymptomatic.Blood work done February 07, 2025 showed white count 6.8 hematocrit 50.3 platelets 205 glucose 83 BUN 10 creatinine 0.88 total cholesterol 216 triglycerides 94 HDL 34 LDL 165 PSA 1.4 vitamin D 24.8. PHQ-9 L ittle interest or pleasure in doing things?Not at all F eeling down, depressed, or hopeless N ot at all T rouble falling or staying asleep, or sleeping too much M ore than half the days F eeling tired or having little energy M ore than half the days P oor appetite or overeating N ot [...] N ot at all T otal Score 4 I nterpretation M inimal Depression C OVID-19 Screening: r max sinus and ear and r tinniuts and dry cough, posterior upper neck 1 cm skliln ?nevus that is irritated testosterone q monday neck ok no gerd. 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 He was born in [place] near [place]. {'Work Hours':'47.5 hours per week', 'Exercise':'Patient has [...] Objective: * Vitals: H t: 72, Wt: 211, BMI:28.61, BP: 118/68, HR: 66, RR: 15, Wt-k.71. * P ast Orders: I maging:FL barium swallow with air (Order Date - 01/16/2025) (Performed Date - 01/16/2025) * Examination: G eneral Examination: GENERAL APPEARANCE: p leasant, well nourished, well developed, in no acute distress, calm and relaxed: : overweight: man. HEAD: a traumatic, normocephalic. EYES: [...] normal, no ascites, no organomegaly, no mass, Moderate umbilical hernia freely reducible. RECTAL EXAM: D eclined. MUSCULOSKELETAL: e xtremities unremarkable, no clubbing, cyanosis or edema. PERIPHERAL PULSES: n ormal. NEUROLOGIC: a lert and oriented, cranial nerves 2-12 grossly intact, deep tendon reflexes 2+ symmetrical, motor strength normal upper and lower extremities, sensory exam intact. PSYCH: a lert, oriented, Significant depression is not evident. Assessment: * Assessment: 1. M sam depressive disorder, single episode, unspecified - F32.9 (Primary) N otes :His depression is in remission. He has been compliant with his treatments. Observation was continued. 2 . O verweight - E66.3 N otes :He has gained back 4 pounds in his body mass index is 28. We reviewed his diet and nutrition. We reviewed his weight loss strategy at length today. 3 . U mbilical hernia - K42.9 N otes :A small umbilical hernia is present but is causing no symptoms or will be observed without treatment. 4 . H yperlipidemia - E78.5 N otes :His LDL is 165. We discussed this at length. No change in his regimen was made. I strongly recommended aggressive weight loss and diet low in animal fat. Comprehensive blood work with a fasting lipid profile was ordered. 5 . C ondyloma acuminata - A63.0 N otes :No new lesions were seen today. 6 . G ERD without esophagitis - K21.9 N otes :His reflux symptoms are well controlled with [id number]-lgz-[id number] medication and no change was necessary. 7 . C ervical radiculopathy - M54.12 N otes :The pain in the shoulder is not reproduced by manipulation of the neck at this time. His neck is pain-free currently. 8 . H ypogonadism in male - E29.1 N otes :He is administering and injections of testosterone once a week. He says this makes a notable improvement and his function has returned to normal. Plan: * Treatment: 2. O thers Continue [...] done * Follow Up: 3 Weeks (Reason: ov check mole) * Images: * Sign off status: Completed true * Provider: Chris Lazo MD Date: 04/24/2024 Generated for Jessica gee/Sanjuanita/Zakia on: 06:26 PM EST History and Physical Notes * HPI (History of Present Illness) Category Sub-Category Detail Notes Depression Screening PHQ-9 Little inte rest or pleasure in doing things: Not at all Feeling down, depressed, or hopeless: No t at all Trouble falling or staying a sleep, or sleeping too much: More than half the days Feeling tired or having little energy: M ore than half the days Poor appetite or overeating: Not at all [...] some way: Not at all Total Score: 4 Interpretation: Minimal Depression COVID-19 Screening Questions Have you had any new onset fever, chills, cough, congestion, sore throat, shortness of breath, muscle aches?: No Examination Category Sub-Category Detail Notes General Examination GENERAL APPEARANCE: pleasant , well nourished, well developed, in no acute distress, calm and relaxed: : overweight: man HEAD: atraumatic, normocep halic EYES: eomi, perrla, anicte lauri, conjugate EARS: normal NOSE: septum intact NECK/THYROID: no jugular venous di stention, no carotid bruit, thyroid normal HEART: no clicks, gallops, murmurs, or rubs, regular rhythm, S1, S2 normal, no s3, or vascular bruits LUNGS: clear to auscultatio n ABDOMEN: bowel sounds normal, no ascites, no organomegaly, no mass, Moderate umbilical hernia freely reducible NEUROLOGIC: alert and oriented, cranial nerves 2-12 grossly intact, deep tendon reflexes 2+ symmetrical, motor strength normal upper and lower extremities, sensory exam intact SKIN: no suspicious lesion s, anicteric PERIPHERAL PULSES: normal BREASTS: no masses palpable b ilaterally MUSCULOSKELETAL: extremities unremark able, no clubbing, cyanosis or edema LYMPH NODES: no enlarged lymph no maura,spleen normal RECTAL EXAM: Declined PSYCH: alert, oriented, Sig nificant depression is not evident ORAL CAVITY: normal, unremarkable
--- OUTSIDE RECORDS SUMMARY | 2025-03-04 18:27 | XMS_ITS | Patient Health Record ---
Author Organization Christiano Lazo III, MD Address [address] [place] [address] Care Team Providers Care Shearer Helper Name Role Phone Dr. Christiano Lazo III Primary Care Provider [phone] Allergies Allergen (clinical drug ingredient) Drug/Non Drug Allergy documented on EMR Reaction Allergy Type Onset Date Status No Known Drug Allergy Unknown Drug Allergy Active Results Component Value Reference Range Notes Complete Blood Count Auto Di ff Reviewed date:10/05/2024 07:16:05 PM Interpretation: Performing Lab:[facility], [address] [place] [id number] Notes/Report: White Blood Count 8.7 4.8-10.8 X10*3/uL [...] Panel Reviewed date:10/05/2024 07:16:05 PM Interpretation: Performing Lab:[facility], [address] [place] [id number] Notes/Report: Sodium 139 135-145 mmol/L Potassium 4.1 3.3-5.1 mmol/L Slight Hemolysis.Interpr et result with caution. Chloride 106 96-108 mmol/L [...] Aspartate Amino Transferase 29 5-37 U/L Slight Hemolysis.Interpr et result with caution. Alanine Aminotransferase 27 0-40 U/L Total Protein 7.9 6.5-8.0 g/dL Albumin Level 4.6 3.5-5.0 g/dL Alkaline Phosphatase 60 39-117 U/L FL barium swallow with air Reviewed date:02/21/2025 02:13:29 PM Interpretation: Performing Lab: Notes/Report: [address] [address] Fluoroscopy Report Signed Patient: Michael Menezes MR#: [id number] : 1960 Acct:[id number] Age/Sex: 64 / M ADM Date: 01/16/25 Loc: [facility] Attending Dr: Nova CARDENAS Ordering Physician: Nova Morse Date of Service: 01/16/25 Procedure(s): FL barium swallow with air Accession Number(s): [id number] cc: Nova Morse; Christiano Lazo MD Reason for Exam: K21.9 - Gastro-esophageal reflux disease without esophagitis EXAMINATION: XR BARIUM SWALLOW CLINICAL INFORMATION: Gastroesophageal reflux without esophagitis COMPARISON: None available. TECHNIQUE: Patient was administered thin and thick barium and effervescent granules. Barium tablet was also administered. FINDINGS: There is trace laryngeal penetration seen with thin liquid barium. No aspiration. Esophageal motility is normal. There is moderate gastroesophageal reflux. No hernia, mass or stricture is seen. No evidence of esophagitis is appreciated. Barium tablet passed into the stomach. The visualized stomach is unremarkable. FLUOROSCOPY TIME: 1.13 minutes DOSE AREA PRODUCT: 1009 uGy-m2 (microgray-meter squared) FL/FL barium swallow with air IMPRESSION: Moderate gastroesophageal reflux. Trace laryngeal penetration. No aspiration. Electronically signed by: Dennise Thompson MD 01/16/2025 10:11 AM [facility] Dictated By: Dennise Thompson MD Signed By: <Electronically signed by Dennise Thompson MD in OV> 01/16/25 1011 DD/ 0900 TD/TT: 01/16/25 0917 Transmission Supervisor: [place] [address] Fluoroscopy Report Signed Patient: Scottie Menezes MR#: [id number] : 1960 Acct:[id number] Age/Sex: 64 / M ADM Date: 01/16/25 Loc: [facility] Attending Dr: Nova CARDENAS Ordering Physician: Nova Morse Date of Service: 01/16/25 Procedure(s): FL bar ium swallow with air Accession Number(s): [id number] cc: Nova Morse; Christiano Lazo MD Reason for Exam: K21 .9 - Gastro-esophageal reflux disease without esophagitis EXAMINATION: XR BARIUM SWALLOW CLINICAL INFORMATION: Gastroesophageal ref lux without esophagitis COMPARISON: None available. TECHNIQUE: Patient was administ ered thin and thick barium and effervescent granules. Barium tab let was also administered. FINDINGS: There is trace laryn geal penetration seen with thin liquid barium. No aspiration. Esophage al motility is normal. There is moderate gastroesophageal ref lux. No hernia, mass or stricture is seen. No evidence of esophagi tis is appreciated. Barium tablet passed into the stomach. The visuali zed stomach is unremarkable. FLUOROSCOPY TIME: 1.13 minutes DOSE AREA PRODUCT: 1009 uGy-m2 (microgray-meter squared) F L/FL barium swallow with air IMPRESSION: Moderate gastroesoph ageal reflux. Trace laryngeal penetration. No aspiration. Electronically jordy d by: Dennise Thompson MD 01/16/2025 10:11 AM [facility] Dictated By: Dennise Thompson MD Signed By: <Electronically signed by Dennise Thompson MD in OV> 01/16/25 1011 DD/ 0900 TD/TT: 01/16/25 0917 Transmission Supervisor: AMAN Reason For Referral Reason Evaluate and Treat Diagnosis 1 Varicose veins (I86. 8) Referral Organization Christiano Lazo III, MD Referring Provider First Name Christiano Referring Provider Last Name Violet Referring Provider Speciality Internal M edicine Referred Provider [facility] Referred Provider Specialty Vascular Kaylie ivet General Notes Verena Celaya 10/28/2024 10:47:02 AM > referral faxed with progress noteYomi Amber 11/20/2024 02:36:26 PM > Patient was called to schedule appointment by office was left a voicemail. Dr. Lazo office spoke with patient and provided number for patient to call and schedule an appointment.Yomi Amber 11/20/2024 03:12:24 PM > Patient is scheduled [...] Provider Speciality Internal M edicine Referred Provider [facility] er, Pulmonology Referred Provider Specialty Pulmonary Gertrude dodge General Notes D 10/28/2024 10:45:03 AM > Faxed referral with progress note., D 11/21/2024 02:22:39 PM > Patient was contacted by [facility] was left a message to call and schedule an appointment. Patient was contacted by Dr. Lazo office and was provided with the [facility] Pul[facility] phone number to contact them to [...] Problem Status W/U Status Risk Notes Problem 01871131 Hyperlipidemia (E78.5) Active confirmed His LDL is 165. We discussed this at length. No change in his regimen was made. I strongly recommended aggressive weight loss and diet low in animal fat. Comprehensive blood work with a fasting lipid profile was ordered. Problem 620065795 Overweight (E66.3) Active confirmed He has gained back 4 pounds in his body mass index is 28. We reviewed his diet and nutrition. We reviewed his weight loss strategy at length today. Problem Major depression, single episode (97417221) Major depressive disorder, single episode, unspecified (F32.9) Active confirmed His depression is in remission. He has been compliant with his treatments. Observation was continued. Problem 739567567 GERD without esophagitis (K21.9) Active confirmed His reflux symptoms are well controlled with dann-dpp-bdyah er medication and no change was necessary. Problem Cervical radiculopathy (16512682) Cervical radiculopathy (M54.12) Active confirmed The pain in the shoulder is not reproduced by manipulation of the neck at this time. His neck is pain-free currently. Problem 150637508 Umbilical hernia (K42.9) Active confirmed A small umbilical hernia is present but is causing no symptoms or will be observed without treatment. Problem 483026691 Condyloma acuminata (A63.0) Active confirmed No new lesions were seen today. Problem 552676916 ED (erectile dysfunction) (N52.9) Active confirmed This problem has been resolved with use of medication. Problem 11193521 Hypogonadism in male (E29.1) Active confirmed He is administering and injections of testosterone once a week. He says this makes a notable improvement and his function has returned to normal. Vital Signs Heart Rate 66 /min 02/21/2025 Temperature 98.4 degrees Fahrenheit 01/10/2025 Respiratory Rate 15 /min 02/21/2025 Blood pressure diastolic 68 mm Hg 02/21/2025 Height 72 in 02/21/2025 Blood pressure systolic 118 mm Hg 02/21/2025 Weight 211 lbs 02/21/2025 BMI 28.61 kg/m2 02/21/2025 Encounters Encounter Location Date Provider Diagnosis Christiano Lazo III, MD [address] [place] [address] [place] [address] 06/14/2024 Christiano Lazo Hypogonadism in male E29.1 ; Major depressive disorder, single episode, unspecified F32.9 ; Cervical radiculopathy M54.12 ; Obesity (BMI 30-39.9) E66.9 ; GERD without esophagitis K21.9 ; Hyperlipidemia E78.5 and Umbilical hernia K42.9 Christiano Lazo III, MD [address] [place] [address] [place] [address] 10/25/2024 Christiano Lazo Obesity (BMI 30-39.9 ) E66.9 ; Umbilical hernia K42.9 ; Hyperlipidemia E78.5 ; ED (erectile dysfunction) N52.9 ; Condyloma acuminata A63.0 ; Major depressive disorder, single episode, unspecified F32.9 ; Cervical radiculopathy M54.12 and Hypogonadism in male E29.1 Christiano Lazo III, MD [address] [place] [address] [place] [address] 11/20/2024 Christiano Lazo Obesity (BMI 30-39.9 ) E66.9 ; Acute bronchitis due to other specified organisms J20.8 ; Hyperlipidemia E78.5 and GERD without esophagitis K21.9 Christiano Lazo III, MD [address] [place] [address] [place] [address] 12/20/2024 Christiano Lazo Encounter for immunization Z23 ; Shoulder impingement M25.819 ; Overweight E66.3 ; Hyperlipidemia E78.5 ; Hypogonadism in male E29.1 and Cervical radiculopathy M54.12 Christiano Lazo III, MD [address] [place] [address] [place] [address] 01/10/2025 Christiano Lazo Hyperlipidemia E78.5 ; Major depressive disorder, single episode, unspecified F32.9 ; ED (erectile dysfunction) N52.9 ; Overweight E66.3 ; Umbilical hernia K42.9 ; GERD without esophagitis K21.9 and Hypogonadism in male E29.1 Christiano Lazo III, MD [address] [place] [address] [place] [address] 02/21/2025 Christiano Lazo Major depressive disorder, single episode, unspecified F32.9 ; Overweight E66.3 ; Umbilical hernia K42.9 ; Hyperlipidemia E78.5 ; Condyloma acuminata A63.0 ; GERD without esophagitis K21.9 ; Cervical radiculopathy M54.12 and Hypogonadism in male E29.1 Christiano Lazo III, MD [address] [place] [address] [place] [address] 10/11/2024 Christiano Lazo III, MD [address] [place] [address] [place] [phone] 10/14/2024 Christiano Lazo Assessments Encounter Date Diagnosis (ICD Code) Assessment Notes Treat ment Notes Treatment Clinical Notes 06/14/2024 Major depressive disorder, single episode, unspecified (ICD-10 - F32.9) He is worried about is financial situation but [...] organisms (ICD-10 - J20.8) He will use hkym-gkn-exreurs medication for his symptoms. He was given [...] weight loss strategy at length today. 02/21/2025 Major depressive disorder, single episode, unspecified (ICD-10 - F32.9) His depression is in remission. He has been compliant with his treatments. Observation was continued. 06/14/2024 Cervical radiculopathy (ICD-10 - M54.12) I [...] has been resolved with use of medication. 02/21/2025 Umbilical hernia (ICD-10 - K42.9) A small umbilical hernia is present but is causing no symptoms or will be observed without treatment. 06/14/2024 Obesity (BMI 30-39.9 ) (ICD-10 - [...] His reflux symptoms are well controlled with bbyr-ryh-tfowtxi medication and no change was necessary. 12/20/2024 [...] weight loss strategy at length today. 02/21/2025 Hyperlipidemia (ICD-10 - E78.5) His LDL is 165. We discussed this at length. No change in his regimen was made. I strongly recommended aggressive weight loss and diet low in animal fat. Comprehensive blood work with a fasting lipid profile was ordered. 06/14/2024 GERD without esophagitis (ICD-10 - K21.9) His reflux symptoms are well controlled with cuar-hmu-xltdanj medication and no change was necessary. 10/25/2024 [...] or will be observed without treatment. 02/21/2025 Condyloma acuminata (ICD-10 - A63.0) No new lesions were seen today. 06/14/2024 Hyperlipidemia (ICD-10 - E78.5) His fasting [...] His reflux symptoms are well controlled with rgjm-oxu-kohtioz medication and no change was necessary. 02/21/2025 GERD without esophagitis (ICD-10 - K21.9) His reflux symptoms are well controlled with hjol-vas-hhtkwqh medication and no change was necessary. 06/14/2024 Umbilical hernia (ICD-10 - K42.9) A [...] given by the urologist. This was continued. 02/21/2025 Cervical radiculopathy (ICD-10 - M54.12) The pain in the shoulder is not reproduced by manipulation of the neck at this time. His neck is pain-free currently. 10/25/2024 Hypogonadism in male (ICD-10 - E29.1) He says he is receiving injections of testosterone given by the urologist. This was continued. 02/21/2025 Hypogonadism in male (ICD-10 - E29.1) He is administering and injections of testosterone once a week. He says this makes a notable improvement and his function has returned to normal. Plan Of Treatment Pending Test Test Name [...] Provider Name:Christiano Lazo , 03/14/2025 03:15:00 PM, [address] [place] [address] , [place], [place], [phone], Provider Name:Christiano Lazo , 02/24/2026 03:00:00 PM, [address] [place] [address] [place], [place], [address], Insurance Providers Payer Name Payer Address Payer Phone Subscriber Number Group Number Insured Name Patient Relationship to Insured Coverage Start Date Coverage End Date [employer] [address] [place] [phone] [phone] [id number] Michael Menezes Self - patient is the [...]
--- OUTSIDE RECORDS SUMMARY | 2025-03-04 18:27 | XMS_ITS | Encounter Summary ---
Author Organization [facility] [place] [address] Care Team Providers Care Hair Tinter Name Role Phone Christiano Lazo MD Primary Care Provider [phone] Encounter Details Date Type Department Care Team (Late st Contact Info) Description 05/07/2024 Lab Requisition [facility] - Main Lab [address] [place] [address] Rashel Cadena MD [address] [address] Testicular hypofunction Social History Tobacco Use Types [...] AM EST) WBC 5.9 4.8 - 10.8 K/[facility] LAB HEMETOLOGY METHOD 05/07/2024 2:22 PM EST [facility] RBC 4.70 4.50 - 5.50 M/[facility] LAB HEMETOLOGY METHOD 05/07/2024 2:22 PM EST [facility] Hemoglobin 14.7 13.5 - 17.5 g/dL LAB HEMETOLOGY METHOD 05/07/2024 2:[address] [facility] Hematocrit 42.8 42.0 - 54.0 % LAB HEMETOLOGY METHOD 05/07/2024 2:[address] [facility] MCV 91.3 79.0 - 98.0 FL LAB HEMETOLOGY METHOD 05/07/2024 2:22 PM EST [facility] MCH 31.3 27.0 - 32.0 pcg LAB HEMETOLOGY METHOD 05/07/2024 2:[address] [facility] MCHC 34.3 32.0 - 37.0 g/dL LAB HEMETOLOGY METHOD 05/07/2024 2:[address] [facility] RDW 12.6 11.0 - 15.0 % LAB HEMETOLOGY METHOD 05/07/2024 2:[address] [facility] Platelets 228 130 - 400 K/mcL LAB HEMETOLOGY METHOD 05/07/2024 2:[address] [facility] MPV 9.6 7.0 - 11.0 FL LAB HEMETOLOGY METHOD 05/07/2024 2:[address] [facility] NRBC 0.0 <1.0 % LAB HEMETOLOGY METHOD 05/07/2024 2:[address] [facility] NRBC Absolute 0.00 <0.10 K/mcL LAB HEMETOLOGY METHOD 05/07/2024 2:[address] [facility] Blood Venous blood specimen / Unknown 05/07/2024 9:54 AM EST 05/07/2024 2:08 PM EST us Rashel Cadena MD LAB BLOOD ORDERABLES Final Result [facility] [address] [place], [place] [address] [phone] documented in this encounter Visit Diagnoses Diagnosis Testicular hypofunction Other testicular hypofunction documented in this encounter Care Teams Hair Tinter Relationship Specialty Start Date End Date Christiano Lazo MD [address] [address] PCP - General Oncology 05/07/24 documented as of this encounter
--- OUTSIDE RECORDS SUMMARY | 2025-03-04 18:27 | XMS_ITS | Clinical Summary ---
Author Organization [address] Address [address] [place] [address] Phone Care Team Providers Care Dam Worker Name Role Phone Christiano Lazo MD Primary Care Provider [phone] Social History Tobacco Use Types Packs/Day Years [...] patient's age to complete this topic Insurance [facility] [place] [id number] [facility] Care Teams Dam Worker Relationship Specialty Start Date End Date Christiano Lazo MD [address] [facility] [address] [place] [address] PCP - General Oncology 05/07/24
== END ==
LOC: HO.SL 14:51
PROVIDERS: PCP Internal Medicine Medical Oncology; Visit Provider Internal Medicine
DX: G47.33 Obstructive sleep apnea (adult) (pediatric) (principal); R06.83 Snoring; R40.0 Somnolence; E66.9 Obesity, unspecified; Z68.34 Body mass index [BMI] 34.0-34.9, adult
CPT/HCPCS: 95806

== ENCOUNTER → 2025-03-04 15:07 | Outpatient (BNV) | payer OTHER, SELFPAY | PROVIDERS: PCP Internal Medicine Medical Oncology; Visit Provider Psychiatry & Neurology Neurology | DX: G47.33 Obstructive sleep apnea (adult) (pediatric) (principal) | CPT/HCPCS: 95806 ==